=== PATIENT | male | born 1975 | race Caucasian/White ===

== ENCOUNTER 2016-06-12 22:41 | Emergency (ER) | payer OTHER ==
[~2016-06-12] VITALS: Ht 185.4 cm; Wt 80.0 kg
[~2016-06-12 22:41] MED LIST: Aspirin Chew PO; CARV3.125 PO; LIPI10TA PO; NITR1SUB3 SL; PLAV75TA29 PO
[2016-06-12 22:46] VITALS: BP 182/105; PULSE 80; RESP 16; TEMP 97.6; O2SAT 100
[2016-06-12 23:02] VITALS: BP 173/86; PULSE 75; RESP 18; O2SAT 100
--- NOTE | 2016-06-12 23:09 | PD ---
HPI Chief Complaint: Chest Pain Time Seen by Provider: 22:53 Travel History International Travel<30 days: No Contact w/Intl Traveler<30days: No Traveled to known affect area: No History of Present Illness HPI 41-year-old man, history of CAD with recent stenting in May 03 following an abnormal stress test by Dr. Doyle, who presents emergent from with pain in his chest across his left arm starting today. Ongoing for the past 5 or 6 days but was progressively worse today. He's also been out of all of his medications for the past 6 days. He states he was unable to afford a follow-up appointment with cardiology. States he feels similar to when he had his chest pain in the past. No clear aggravating or alleviating symptoms. Does have some shortness of breath with it. His only other complaint is that he does feel very lightheaded and fatigued when he takes his medications including metoprolol atorvastatin and Plavix. History Past Medical History Narrative Medical CAD, History of stent times 19 April 2016 Childhood hydrocephalus Social History Alcohol Use: No Tobacco Use: Yes (2-4 small cigars per day) Allergies-Medications (Allergen,Severity, Reaction): Coded Allergies: No Known Allergies (Unverified , 05/14/16) Reported Meds & Prescriptions Reported Meds & Active Scripts Active Nitroglycerin SL (Nitroglycerin) 0.4 Mg Subl 0.4 Mg SL DIRECTED PRN ONE TABLET UNDER THE TONGUE NEEDED FOR CHEST PAIN, MAY REPEAT EVERY FIVE MINUTES FOR A TOTAL OF 3 DOSES OR CALL 911 IF NO RELIEF Coreg (Carvedilol) 3.125 Mg Tab 3.125 Mg PO BID Lipitor (Atorvastatin Calcium) 10 Mg Tab 20 Mg PO HS Plavix (Clopidogrel Bisulfate) 75 Mg Tab 75 Mg PO DAILY [Aspirin Chew] 81 MG Chew 81 Mg PO DAILY Review of Systems Except as stated in HPI: all other systems reviewed are Neg Physical Exam Narrative GENERAL: Well-appearing 41-year-old man, no acute distress. SKIN: Warm and dry. HEAD: Atraumatic. Normocephalic. EYES: Pupils equal and round. No scleral icterus. No injection or drainage. ENT: No nasal bleeding or discharge. Mucous membranes pink and moist. NECK: Trachea midline. No JVD. CARDIOVASCULAR: Regular rate and rhythm. No murmur appreciated. RESPIRATORY: No accessory muscle use. Clear to auscultation. Breath sounds equal bilaterally. GASTROINTESTINAL: Abdomen soft, non-tender, nondistended. Hepatic and splenic margins not palpable. MUSCULOSKELETAL: No obvious deformities. No clubbing. No cyanosis. No edema. NEUROLOGICAL: Awake and alert. No obvious cranial nerve deficits. Motor grossly within normal limits. Normal speech. PSYCHIATRIC: Appropriate mood and affect; insight and judgment normal. Data Data Last Documented VS Vital Signs Date Time Temp Pulse Resp B/P Pulse Ox O2 Delivery O2 Flow Rate FiO2 06/12/16 23:13 76 18 159/91 100 Room Air 06/12/16 22:46 97.6 Orders Electrocardiogram (06/12/16 23:05) Complete Blood Count With Diff (06/12/16 23:05) Comprehensive Metabolic Panel (06/12/16 23:05) Magnesium (Mg) (06/12/16 23:05) Troponin I (06/12/16 23:05) Lipase (06/12/16 23:05) Chest, Single Ap (06/12/16 23:05) Ecg Monitoring (06/12/16 23:05) Bilateral Bp Monitoring (06/12/16 23:05) Iv Access Insert/Monitor (06/12/16 23:05) Oximetry (06/12/16 23:05) Oxygen Administration (06/12/16 23:05) Nitroglycerin 2% Oint (Nitroglycerin 2% (06/12/16 23:15) Sodium Chloride 0.9% Flush (Ns Flush) (06/12/16 23:15) Labs Laboratory Tests Test 06/12/16 23:15 White Blood Count 9.7 TH/MM3 Red Blood Count 4.42 MIL/MM3 Hemoglobin 14.3 GM/DL Hematocrit 40.9 % Mean Corpuscular Volume 92.4 FL Mean Corpuscular Hemoglobin 32.4 PG Mean Corpuscular Hemoglobin 35.1 % Concent Red Cell Distribution Width 13.5 % Platelet Count 278 TH/MM3 Mean Platelet Volume 8.1 FL Neutrophils (%) (Auto) 45.0 % Lymphocytes (%) (Auto) 42.9 % Monocytes (%) (Auto) 7.9 % Eosinophils (%) (Auto) 2.9 % Basophils (%) (Auto) 1.3 % Neutrophils # (Auto) 4.4 TH/MM3 Lymphocytes # (Auto) 4.2 TH/MM3 Monocytes # (Auto) 0.8 TH/MM3 Eosinophils # (Auto) 0.3 TH/MM3 Basophils # (Auto) 0.1 TH/MM3 CBC Comment DIFF FINAL Differential Comment Sodium Level 140 MEQ/L Potassium Level 3.7 MEQ/L Chloride Level 104 MEQ/L Carbon Dioxide Level 25.8 MEQ/L Anion Gap 10 MEQ/L Blood Urea Nitrogen 8 MG/DL Creatinine 0.94 MG/DL Estimat Glomerular Filtration 88 ML/MIN Rate Random Glucose 96 MG/DL Calcium Level 8.9 MG/DL Magnesium Level 2.0 MG/DL Total Bilirubin 0.2 MG/DL Aspartate Amino Transf 12 U/L (AST/SGOT) Alanine Aminotransferase 22 U/L (ALT/SGPT) Alkaline Phosphatase 93 U/L Troponin I LESS THAN 0.02 NG/ML Total Protein 7.6 GM/DL Albumin 4.2 GM/DL Lipase 280 U/L MDM Medical Decision Making Medical Screen Exam Complete: Yes Emergency Medical Condition: Yes Interpretation(s) My review of EKG, normal sinus rhythm at a rate of 71, normal axis, normal intervals, no acute ischemia. LABS: CBC is unremarkable. CMP is unremarkable. Troponin negative. Lipase normal. Chest x-ray: No acute disease. Differential Diagnosis ACS, anxiety, PE, pericarditis, other Narrative Course Medical decision making 41-year-old man, recurrent chest pain and recent stent, out of medications for a week, one previous recent visit following his stent for the same with negative serial enzymes. I don't he has a PE. Don't see evidence of pericarditis. Needs to be back on his medications. He needs serial cardiac enzymes. We will plan on keeping patient and the chest pain Center, cardiology evaluation, likely discharge. Diagnosis Primary Impression: Chest pain, rule out acute myocardial infarction Vasquez Raines MD Jun 12, 2016 23:09
[2016-06-12 23:11] VITALS: BP 173/86; PULSE 63; RESP 18; O2SAT 100
[2016-06-12 23:13] VITALS: BP 159/91; PULSE 76; RESP 18; O2SAT 100
[2016-06-12] MEDS ORDERED: SODIUM CHLORIDE 0.9% FLUSH 5 ML FLUSH IVF PRN (23:15)
[2016-06-12] MEDS ORDERED: NITROGLYCERIN 2% OINT 1 GM PACKET TOP ONE (23:15)
[2016-06-12 23:27] LABS: AUTOMATED NEUTROPHIL # 4.4 TH/MM3 (1.8-7.7); BASOPHIL # 0.1 TH/MM3 (0-0.2); BASOPHIL % 1.3 % (0.0-2.0); EOSINOPHIL # 0.3 TH/MM3 (0-0.4); EOSINOPHIL % 2.9 % (0.0-4.0); HEMATOCRIT 40.9 % (39.0-51.0); HEMO FLAGS DIFF FINAL; LYMPH % 42.9 % (9.0-44.0); LYMPHOCYTE # 4.2 TH/MM3 (1.0-4.8); MEAN CELL VOLUME 92.4 FL (80.0-100.0); MEAN CORPUSCULAR HEMOGLOBIN 32.4 PG (27.0-34.0); MEAN CORPUSCULAR HGB CONC 35.1 % (32.0-36.0); MONO % 7.9 % (0.0-8.0); PLATELET COUNT 278 TH/MM3 (150-450); RED BLOOD COUNT 4.42 MIL/MM3 (4.50-5.90); RED CELL DISTRIBUTION WIDTH 13.5 % (11.6-17.2); WHITE BLOOD COUNT 9.7 TH/MM3 (4.0-11.0)
[2016-06-12 23:44] LABS: ANION GAP 10 MEQ/L (5-15); AST (GOT) 12 U/L (15-37); BICARBONATE 25.8 MEQ/L (21.0-32.0); BLOOD UREA NITROGEN 8 MG/DL (7-18); CHLORIDE 104 MEQ/L (98-107); GLOMERULAR FILTRATION RATE 88 ML/MIN (>89); POTASSIUM 3.7 MEQ/L (3.5-5.1); SODIUM (NA) 140 MEQ/L (136-145)
[2016-06-12 23:49] LABS: ALKALINE PHOSPHATASE 93 U/L (45-117); ALT (GPT) 22 U/L (12-78); TOTAL BILIRUBIN ADULT 0.2 MG/DL (0.2-1.0)
--- NOTE | 2016-06-13 | RADRPT ---
EXAM DATE/TIME: 06/12/2016 23:46 [facility] COMPARISON: CHEST SINGLE AP, May 14, 2016, 23:43. INDICATIONS : Patient states chest pain. MEDICAL HISTORY : Hypertension. Hypercholesterolemia. SURGICAL HISTORY : None. ENCOUNTER: Initial ACUITY: 1 day PAIN SCORE: 4/10 LOCATION: Bilateral chest FINDINGS: A single view of the chest demonstrates the lungs to be symmetrically aerated without evidence of mas s, infiltrate or effusion. There is a stable granuloma in the left upper lung. The cardiomediastinal contours are unremarkable. Osseous structures are intact. CONCLUSION: No acute disease. No significant change has occurred. Gera Smith MD on June 12, 2016 at 23:58 Board Certified Radiologist. This report was verified electronically.
[2016-06-13 00:10] VITALS: BP 153/93; PULSE 64; RESP 18; O2SAT 97
[2016-06-13] MEDS ORDERED: SODIUM CHLORIDE 0.9% FLUSH 5 ML FLUSH IVF PRN (00:15)
[2016-06-13 01:15] VITALS: BP 146/98; PULSE 68; RESP 18; O2SAT 98
[2016-06-13 02:15] VITALS: BP 128/84; PULSE 67; RESP 18; O2SAT 98
[2016-06-13 02:42] LABS: CREATINE KINASE 121 U/L (39-308)
[2016-06-13 02:54] LABS: CKMB LESS THAN 0.5 NG/ML (0.5-3.6)
[2016-06-13 05:27] LABS: CREATINE KINASE 137 U/L (39-308)
[2016-06-13 05:39] LABS: CKMB LESS THAN 0.5 NG/ML (0.5-3.6)
[2016-06-13 06:47] VITALS: BP 131/78; PULSE 92; RESP 18; O2SAT 98
[2016-06-13] MEDS ORDERED: SODIUM CHLOR 0.9% 1000 ML INJ 1,000 ML IV SCH (07:58)
[2016-06-13 08:46] VITALS: BP 158/98; PULSE 74; RESP 16; O2SAT 99
[2016-06-13] MEDS ORDERED: CLOPIDOGREL 75 MG TAB PO SCH (09:00)
[2016-06-13] MEDS ORDERED: SODIUM CHLORIDE 0.9% FLUSH 5 ML FLUSH IVF SCH (09:00)
[2016-06-13] MEDS ORDERED: ASPIRIN 325 MG TAB PO SCH (09:00)
[2016-06-13] MEDS ORDERED: CARVEDILOL 3.125 MG TAB PO SCH (09:00)
--- NOTE | 2016-06-13 09:19 | MH ---
cc: OLEGARIO TRINIDAD MD DATE OF ADMISSION: 06/13/2016 DATE OF 1975 CHIEF COMPLAINT Chest pain HISTORY OF PRESENT ILLNESS This is a 41-year-old male with a history of CAD having a heart cath in 2015 with two stents placed by Dr. Doyle. He states that he has been having three weeks of intermittent discomfort in his chest described as a tightness. It makes him short of breath and diaphoretic, but really not nauseous. 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 He does not have a primary care physician at this time. The discomfort is somewhat similar to the discomfort he had before. He denies recent illnesses. Denies fevers or chills. PAST MEDICAL HISTORY 1. CAD with stenting in April of last year. 2. Hypertension 3. Hyperlipidemia SOCIAL HISTORY Past history of tobacco use, but states he essentially quit smoking after his heart catheterization, but has had a very rare cigarette since. Denies alcohol or illicit drugs. PAST SURGICAL HISTORY Heart catheterization in April with stenting. ALLERGIES NO KNOWN DRUG ALLERGIES. MEDICATIONS He is only taking Aspirin. He ran out of Plavix, Lipitor and Carvedilol. REVIEW OF SYSTEMS GENERAL: Denies fevers or chills. Denies recent illnesses. HEENT: Denies headache, earache, sore throat or difficulty swallowing. CARDIOVASCULAR: Describes the discomfort as mentioned above. There was diaphoresis. Denies sensation of heart beating rapidly or irregularly. No syncope. RESPIRATORY: He has been short of breath. No inspirational chest discomfort. Denies coughing, wheezing or hemoptysis. GI: Denies nausea, vomiting, diarrhea, abdominal pain or blood in the stool. MUSCULOSKELETAL: Denies joint pain or edema. Denies calf pain or edema. NEUROVASCULAR: Denies headache or dizziness. ENDOCRINE: Denies polyuria or polydipsia. HEMATOLOGIC: No easy bruising. SKIN: Denies rash or itching. PHYSICAL EXAMINATION VITAL SIGNS: In the emergency department, initially included a blood pressure of 182/105, heart 80, respirations 16, pulse oximetry 100% on room air and he was afebrile. Most recent vital signs include a blood pressure 131/70, heart rate is 92, respirations 18, pulse oximetry 98% on room air. GENERAL: The patient seen in the examination room in no apparent distress. He is very pleasant. He speaks in clear and complete sentences. HEENT: Head is atraumatic and normocephalic. NECK: Supple without lymphadenopathy and trachea is midline. No JVD or carotid bruits. CARDIOVASCULAR: Regular rate and rhythm without murmur, gallop or rub. RESPIRATORY: Lungs are clear to auscultation bilaterally. No wheezing, rales or rhonchi. No reproducible chest wall discomfort. No use of accessory muscles. GI: Abdomen is nontender and nondistended. Bowel sounds are normal. No guarding or rebound. No obvious pulsatile mass or bruit. No CVA tenderness. Strong femoral pulses bilaterally. MUSCULOSKELETAL: Patient is moving upper and lower extremities freely. No joint tenderness or edema. No calf tenderness or edema, Homans' sign. Strong pulses in the upper and lower extremities. NEUROVASCULAR: The patient is alert and oriented. Cranial nerves II-XII are grossly intact. No focal deficits and speech is clear. SKIN: No rashes, skin turgor is normal. LABORATORY DATA CBC is unremarkable. A complete metabolic panel unremarkable. Serial cardiac enzymes normal x3. Lipase is normal at 280. Single view chest x-ray read by radiologist as no acute disease. No ST changes occurred. EKG's have sinus bradycardia and sinus rhythm with nonspecific inferior T-wave changes. No significant ST segment depression or elevation. ASSESSMENT AND PLAN 1. Unstable angina: The patient has a history of CAD. He has run out of his medications. He has been seen by Dr. Olegario Trinidad of cardiology in the chest pain center and Dr. Trinidad has spoken with Dr. Dasilva who has agreed to admit the patient. The patient will be going for heart catheterization likely today. [facility] service. 2. CAD: The patient has a history of CAD. This will be reassessed with a heart catheterization. We will hold the Plavix at this time in case the patient were to turn into a surgical patient so that would not delay that. He will have full strength Aspirin. We will also keep nitro ointment on his chest. 3. Hypertension: Resume his carvedilol. 4. Hyperlipidemia: Continue current medications. The patient is agreeable with this plan. Dictated by DHAVAL Julien MD ROSA Go /8:36 AM /9:11 AM
[2016-06-13] MEDS ORDERED: HEPARIN-NS/PF INJ 500 ML ONE (10:03)
[2016-06-13] MEDS ORDERED: MIDAZOLAM HCL 2 MG/2 ML VIAL ONE ×2 (10:05→10:33)
[2016-06-13] MEDS ORDERED: HEPARIN SODIUM - IV 10,000 UNITS/10 ML VIAL ONE (10:05)
[2016-06-13] MEDS ORDERED: NITROGLYCERIN INJ 5 ML ONE (10:06)
[2016-06-13] MEDS ORDERED: IOHEXOL 350 MG/ML 100 ML BTL (for Cath Lab) OTHER ONE (11:00)
[2016-06-13] MEDS ORDERED: ISOS30TA3 PO (11:13)
--- NOTE | 2016-06-13 11:14 | HHI.DS ---
Discharge Summary Admission Date Jun 13, 2016 at 00:08 Admitting Diagnosis chest pain Procedures [facility] CBC/BMP: 06/12/16 2315 06/12/16 2315 Significant Findings Laboratory Tests Test 06/12/16 06/13/16 06/13/16 23:15 02:10 04:40 Red Blood Count 4.42 MIL/MM3 (4.50-5.90) Estimat Glomerular Filtration 88 ML/MIN (>89) Rate Aspartate Amino Transf 12 U/L (15-37) (AST/SGOT) Troponin I LESS THAN 0.02 LESS THAN 0.02 LESS THAN 0.02 NG/ML NG/ML NG/ML (0.02-0.05) (0.02-0.05) (0.02-0.05) Creatine Kinase MB LESS THAN 0.5 LESS THAN 0.5 NG/ML (0.5-3.6) NG/ML (0.5-3.6) Pt Condition on Discharge: Good Discharge Disposition: Discharge Home Discharge Instructions DIET: Follow Instructions for: Heart Healthy Diet Activities you can perform: Weight Bearing as [place] Follow up Referrals: PCP Follow-up - 1 Month New Medications: Isosorbide Mononitrate ER (Isosorbide Mononitrate ER) 30 Mg Nicole 30 MG PO DAILY@07 cad #30 Ref 6 TAB Continued Medications: Atorvastatin (Lipitor) 10 Mg Tab 20 MG PO HS #30 TAB Carvedilol (Coreg) 3.125 Mg Tab 3.125 MG PO BID #60 TAB Clopidogrel (Plavix) 75 Mg Tab 75 MG PO DAILY #30 TAB ([Aspirin Chew]) 81 MG CHEW 81 MG PO DAILY #30 TAB.Vasquez Matson MD Jun 13, 2016 11:14
[2016-06-13] MEDS ORDERED: oxyCODONE/ACETAMINOPHEN 5 MG/325 MG TAB PO PRN ×2 (11:15)
[2016-06-13] MEDS ORDERED: BACITRACIN OINT 0.9 GM PKT TOP ONE (11:15)
[2016-06-13] MEDS ORDERED: ONDANSETRON HCL 4 MG/2 ML VIAL IVP PRN (11:15)
[2016-06-13] MEDS ORDERED: MISC INFORMATION XX ONE (11:15)
--- NOTE | 2016-06-13 11:25 | HHI.PR ---
Addendum to Inpatient Note Addendum Reason: Additional Documentation Additional Information S/P cath by Dr Dasilva. Recommends medical management and to DC patient to follow up as OP. DC plan DC home in fairly well condition To follow up with PCP and consultants as OP Meds per med reconciliations Activity ad malissa as tolerated Diet health heart diet Kate Aquino MD Jun 13, 2016 11:25
[2016-06-13] MEDS ORDERED: NITROGLYCERIN 2% OINT 1 GM PACKET TOPICAL SCH (12:00)
--- NOTE | 2016-06-13 12:17 | MA ---
cc: DELFINO TEE DATE: 06/13/2016 PROCEDURE PERFORMED 1. Fluoroscopy with interpretation. 2. Coronary angiography. 3. Left heart catheterization. METHOD Risks, benefits and alternatives were discussed with the patient. The patient understood and consented to the procedure. The patient was brought to the catheterization lab and placed on the catheterization table. Right wrist was prepped and draped in sterile fashion. Right wrist was anesthetized with 2% lidocaine. Right radial artery was cannulated and a 6-Malian 7 cm sheath was placed without difficulty. CORONARY ANGIOGRAPHY Left coronary circulation was selectively engaged with a 6-Malian JL-3.5 catheter. Right coronary circulation was selectively engaged with a 6-Malian JR-5 catheter. Angiography findings as follows: 1. Left main coronary is angiographically normal. 2. Left anterior descending coronary has some minor luminal irregularities in the proximal mid segment. Several smaller diagonal branch with minor luminal irregularities. 3. Left circumflex gives rise to a moderate-sized obtuse marginal branch and sub-branch. There is a stent in the proximal segment of the marginal branch with some mild stenosis at the proximal distal edge margins. There is a sub-branch which bifurcates in the middle of the stent which has some moderate disease proximally. Severity of stenosis is about 50%. Does not appear to be flow limiting. LEFT HEART CATHETERIZATION 6-Malian JR-5 catheter was advanced across the aortic valve. The initial intraventricular hemodynamics measured at 127/7 mmHg. CONCLUSION 1. Patent first obtuse marginal branch stent. 2. Moderate branch vessel coronary artery disease involving sub-branch to the obtuse marginal branch. 3. Normal left-sided filling pressure. PLAN Second sub-branch does have some moderate proximal stenosis but does have steep angulation to the side strut. At this point I think it would be best to attempt aggressive medical therapy and see if symptomatically he is improved. Will continue with aspirin and statin. He can follow up with his primary care in the outpatient setting. MD MONA Ball/BILLY /11:05 AM /12:08 PM
--- NOTE | 2016-06-13 15:04 | EKG ---
Date Performed: 06/13/2016 Time Performed: 05:20:29 PTAGE: 41 years EKG: SINUS BRADYCARDIA BORDERLINE ECG PREVIOUS TRACING : 06/13/2016 02.07 Since previous tracing, no significant change noted DOCTOR: Olegario River Interpretating Date/Time 06/13/2016 15:03:18
--- NOTE | 2016-06-13 15:05 | EKG ---
Date Performed: 06/12/2016 Time Performed: 22:57:59 PTAGE: 41 years EKG: Sinus rhythm NORMAL ECG PREVIOUS TRACING : 05/15/2016 12.20 Since previous tracing, no significant change noted DOCTOR: Olegario River Interpretating Date/Time 06/13/2016 15:03:56
--- NOTE | 2016-06-13 15:05 | EKG ---
Date Performed: 06/13/2016 Time Performed: 02:07:51 PTAGE: 41 years EKG: Sinus rhythm WITH MARKED SINUS ARRHYTHMIA BORDERLINE ECG PREVIOUS TRACING : 06/12/2016 22.57 Since previous tracing, no significant change noted DOCTOR: Olegario River Interpretating Date/Time 06/13/2016 15:03:35
[2016-06-13] MEDS ORDERED: ATORVASTATIN 20 MG TAB PO SCH (21:00)
[2016-06-14] MEDS ORDERED: ISOSORBIDE MONONITRATE 30 MG TAB PO SCH (07:00)
== END 2016-06-13 15:49 | disposition home or self-care (01) ==
LOC: NEPE 22:41 → UNDOADMOB 06-13 00:08 → NEDA 06-13 00:08 → NEDH 06-13 04:08 → NEPE 06-13 15:49
DX: R07.9 Chest pain, unspecified (principal); I25.10 Atherosclerotic heart disease of native coronary artery without angina pectoris; R94.31 Abnormal electrocardiogram [ECG] [EKG]; R06.02 Shortness of breath; Z72.0 Tobacco use
CPT/HCPCS: 71010; 80053; 82550; 82552; 83690; 83735; 84484; 85025; 93005; 93454; 99285; C1769; C1893; J1644; J2250; J3010; J7030; Q9967

== ENCOUNTER 2016-07-31 04:37 | Inpatient (IN) | payer OTHER ==
[2016-07-31] VITALS (24 sets, daily range): BP systolic 125–167; BP diastolic 59–101; PULSE 56–98; RESP 16–28; TEMP 97.7–98.6; O2SAT 98–100
[~2016-07-31] VITALS: Ht 188 cm; Wt 79.5 kg
[~2016-07-31 04:37] MED LIST changes: +ISOS30TA3 PO
[2016-07-31] MEDS ORDERED: SODIUM CHLORIDE 0.9% FLUSH 5 ML FLUSH IVF PRN (05:00)
[2016-07-31] MEDS ORDERED: MORPHINE SULFATE 4 MG/ML INJ IV PUSH ONE (05:00)
[2016-07-31] MEDS ORDERED: HEPARIN SODIUM - IV 10,000 UNITS/10 ML VIAL IV ONE (05:00)
[2016-07-31] MEDS ORDERED: SODIUM CHLORID 0.9% 500 ML INJ 500 ML IV ONE (05:00)
[2016-07-31] MEDS ORDERED: SODIUM CHLOR 0.9% 1000 ML INJ 1,000 ML IV ONE (05:00)
[2016-07-31] MEDS ORDERED: ASPIRIN 325 MG TAB PO ONE (05:00)
[2016-07-31] MEDS ORDERED: CLOPIDOGREL 300 MG TAB PO ONE ×2 (05:00→06:30)
[2016-07-31] MEDS ORDERED: ATORVASTATIN 80 MG TAB PO ONE (05:00)
[2016-07-31 05:02] LABS: AUTOMATED NEUTROPHIL # 9.7 TH/MM3 (1.8-7.7); BASOPHIL # 0.2 TH/MM3 (0-0.2); BASOPHIL % 1.3 % (0.0-2.0); EOSINOPHIL # 0.2 TH/MM3 (0-0.4); EOSINOPHIL % 1.5 % (0.0-4.0); HEMATOCRIT 45.3 % (39.0-51.0); HEMO FLAGS DIFF FINAL; LYMPH % 25.2 % (9.0-44.0); LYMPHOCYTE # 3.8 TH/MM3 (1.0-4.8); MEAN CELL VOLUME 94.3 FL (80.0-100.0); MEAN CORPUSCULAR HEMOGLOBIN 32.1 PG (27.0-34.0); MEAN CORPUSCULAR HGB CONC 34.1 % (32.0-36.0); MONO % 6.6 % (0.0-8.0); NEUT % 65.4 % (16.0-70.0); PLATELET COUNT 282 TH/MM3 (150-450); WHITE BLOOD COUNT 14.9 TH/MM3 (4.0-11.0)
[2016-07-31 05:08] LABS: I-STAT POTASSIUM 3.3 MMOL/L (3.5-4.9); I-STAT SODIUM 139 MMOL/L (138-146)
--- NOTE | 2016-07-31 05:09 | PD ---
HPI Chief Complaint: Chest Pain Time Seen by Provider: 04:49 Travel History International Travel<30 days: No Contact w/Intl Traveler<30days: No Traveled to known affect area: No History of Present Illness HPI Patient is a 41-year-old male with history of hypertension, hyperlipidemia, coronary artery disease who presents to emergency room with complaints of chest pain. Patient reports that 2 hours ago, he began to have substernal chest pain , reports that this chest pain radiates to his left arm. Patient reports that pain feels a Pressure sensation to his chest. Patient reports that he has had similar chest pains in the past when he has had his past AR's. Reports that he feels short of breath and nauseous with his symptoms. Denies diaphoresis or palpitations. Patient reports that he does follow with Dr. Doyle in the office, reports that he has multiple stents placed in his heart. Patient reports that he has been having intermittent chest pain over the past 4 days, reports that chest pain was worse today, that is why he came to the emergency room. PFSH Past Medical History Blood Disorders: No Heart Rhythm Problems: No Cancer: No Cardiovascular Problems: Yes High Cholesterol: Yes Chest Pain: Yes Congestive Heart Failure: No Coronary Artery Disease: Yes Diminished Hearing: No Endocrine: No Genitourinary: No Hypertension: Yes Immune Disorder: No Implanted Vascular Access Dvce: Yes Musculoskeletal: No Neurologic: Yes (hydrocephalus) Psychiatric: No Reproductive: No Respiratory: No Myocardial Infarction: Yes (04/2016) Past Surgical History Body Medical Devices: STENTS PLACED 04/2016 Cardiac Surgery: Yes Other Surgery: Yes Social History Alcohol Use: No Tobacco Use: Yes (2-4 small cigars per day) Substance Use: No Allergies-Medications (Allergen,Severity, Reaction): Coded Allergies: No Known Allergies (Unverified , 07/31/16) Reported Meds & Prescriptions Reported Meds & Active Scripts Active Isosorbide Mononitrate ER (Isosorbide Mononitrate) 30 Mg Nicole 30 Mg PO DAILY@07 Nitroglycerin SL (Nitroglycerin) 0.4 Mg Subl 0.4 Mg SL DIRECTED PRN ONE TABLET UNDER THE TONGUE NEEDED FOR CHEST PAIN, MAY REPEAT EVERY FIVE MINUTES FOR A TOTAL OF 3 DOSES OR CALL 911 IF NO RELIEF Coreg (Carvedilol) 3.125 Mg Tab 3.125 Mg PO BID Lipitor (Atorvastatin Calcium) 10 Mg Tab 20 Mg PO HS Plavix (Clopidogrel Bisulfate) 75 Mg Tab 75 Mg PO DAILY [Aspirin Chew] 81 MG Chew 81 Mg PO DAILY Review of Systems General / Constitutional: No: Fever Eyes: No: Visual changes HENT: No: Headaches Cardiovascular: Positive: Chest Pain or Discomfort Respiratory: No: Shortness of Breath Gastrointestinal: No: Abdominal Pain Genitourinary: No: Dysuria Musculoskeletal: No: Pain Skin: No Rash Neurologic: No: Weakness Psychiatric: No: Depression Endocrine: No: Polydipsia Hematologic/Lymphatic: No: Easy Bruising Physical Exam Narrative GENERAL: Moderate distress SKIN: Warm and dry. HEAD: Atraumatic. Normocephalic. EYES: Pupils equal and round. No scleral icterus. No injection or drainage. ENT: No nasal bleeding or discharge. Mucous membranes pink and moist. NECK: Trachea midline. No JVD. CARDIOVASCULAR: Regular rate and rhythm. No murmur appreciated. RESPIRATORY: No accessory muscle use. Clear to auscultation. Breath sounds equal bilaterally. GASTROINTESTINAL: Abdomen soft, non-tender, nondistended. Hepatic and splenic margins not palpable. MUSCULOSKELETAL: No obvious deformities. No clubbing. No cyanosis. No edema. NEUROLOGICAL: Awake and alert. Normal speech. PSYCHIATRIC: Appropriate mood and affect; insight and judgment normal. Data Data Last Documented VS Vital Signs Date Time Temp Pulse Resp B/P Pulse Ox O2 Delivery O2 Flow Rate FiO2 07/31/16 04:55 100 2.00 07/31/16 04:55 Nasal Cannula 07/31/16 04:40 73 28 167/92 Orders Electrocardiogram (07/31/16 04:51) B-Type Natriuretic Peptide (07/31/16 04:51) Ckmb (Isoenzyme) Profile (07/31/16 04:51) Complete Blood Count With Diff (07/31/16 04:51) Comprehensive Metabolic Panel (07/31/16 04:51) Magnesium (Mg) (07/31/16 04:51) Prothrombin Time / Inr (Pt) (07/31/16 04:51) Act Partial Throm Time (Ptt) (07/31/16 04:51) Troponin I (07/31/16 04:51) Chest, Single Ap (07/31/16 04:51) Ecg Monitoring (07/31/16 04:51) Bilateral Bp Monitoring (07/31/16 04:51) Iv Access Insert/Monitor (07/31/16 04:51) Oximetry (07/31/16 04:51) Oxygen Administration (07/31/16 04:51) Aspirin (Aspirin) (07/31/16 05:00) Morphine Inj (Morphine Inj) (07/31/16 05:00) Sodium Chloride 0.9% Flush (Ns Flush) (07/31/16 05:00) Sodium Chlorid 0.9% 500 Ml Inj (Ns 500 M (07/31/16 05:00) Atorvastatin (Lipitor) (07/31/16 05:00) Sodium Chlor 0.9% 1000 Ml Inj (Ns 1000 M (07/31/16 05:00) MDM Medical Decision Making Medical Screen Exam Complete: Yes Emergency Medical Condition: Yes Interpretation(s) EKG at 0443: Normal sinus rhythm at 69 bpm, QT/QTC 372/391, st seg elevation II , III, aVF Vital Signs Date Time Temp Pulse Resp B/P Pulse Ox O2 Delivery O2 Flow Rate FiO2 07/31/16 04:55 100 2.00 07/31/16 04:55 100 Nasal Cannula 2.00 07/31/16 04:54 100 Nasal Cannula 2 07/31/16 04:40 73 28 167/92 Differential Diagnosis STEMI, ACS, arrhythmia, electrolyte abnormality Narrative Course Patient is a 41-year-old male who presents to emergency room with complaints of chest pain. Patient reports that he has been having chest pain for the past 2 hours, reports that chest pain is substernal in nature and radiates to his left arm. Patient reports that he has history of coronary disease and has had multiple stents placed in his heart in the past. Patient does follow-up with Dr. Doyle in the office and reports that he was last seen in April 2016. 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 Doyle, call made to Dr. Doyle. Dr. Doyle is on medication, call made to Dr. Mcdonough who is covering for Dr. Doyle. Dr. Mcdonough request that I call the ordnance truck installation mechanic transportation consultant. Call made to Dr. Dasilva who will come to hospital for cardiac cath. request heparin bolus and asa. istat labs: Sodium 139 Chloride 97 Potassium 3.3 BUN 4 Creatinine 0.8 Hemoglobin 16.7 Hematocrit 49 Diagnosis Primary Impression: ST elevation (STEMI) myocardial infarction Qualified Code: I21.3 - ST elevation myocardial infarction (STEMI), unspecified artery Admitting Information Admitting Physician Requests: Admit Leah Martinez DO Jul 31, 2016 05:09
[2016-07-31 05:16] LABS: APTT (PATIENT) 32.1 SEC (24.3-30.1); PROTHROMBIN TIME - PATIENT 10.7 SEC (9.8-11.6)
[2016-07-31] MEDS ORDERED: HEPARIN-NS/PF INJ 500 ML ONE (05:26)
[2016-07-31] MEDS ORDERED: MIDAZOLAM HCL 2 MG/2 ML VIAL ONE ×2 (05:26→05:55)
[2016-07-31] MEDS ORDERED: BIVALIRUDIN 250 MG VIAL ONE (05:27)
[2016-07-31] MEDS ORDERED: HEPARIN SODIUM - IV 10,000 UNITS/10 ML VIAL ONE (05:27)
--- NOTE | 2016-07-31 05:28 | RADRPT ---
EXAM DATE/TIME: 07/31/2016 05:08 [facility] COMPARISON: CHEST SINGLE AP, June 12, 2016, 23:46. INDICATIONS : Chest pain. MEDICAL HISTORY : Hypertension. Hypercholesterolemia SURGICAL HISTORY : None. ENCOUNTER: Initial ACUITY: 1 day PAIN SCORE: 0/10 LOCATION: Bilateral chest FINDINGS: 2 AP views of the chest. Lungs are clear. Cardiomediastinal silhouette within normal limits. No evide nce of pleural effusion or pneumothorax. CONCLUSION: No acute cardiopulmonary disease identified. Ambrocio Ibanez MD on July 31, 2016 at 5:25 Board Certified Radiologist. This report was verified electronically.
[2016-07-31 05:35] LABS: ALT (GPT) 22 U/L (12-78); ANION GAP 14 MEQ/L (5-15); AST (GOT) 27 U/L (15-37); BICARBONATE 25.7 MEQ/L (21.0-32.0); BLOOD UREA NITROGEN 5 MG/DL (7-18); CHLORIDE 98 MEQ/L (98-107); GLOMERULAR FILTRATION RATE 86 ML/MIN (>89); MAGNESIUM 1.8 MG/DL (1.5-2.5); POTASSIUM 3.2 MEQ/L (3.5-5.1); SODIUM (NA) 138 MEQ/L (136-145)
[2016-07-31 05:38] LABS: ALKALINE PHOSPHATASE 111 U/L (45-117); CREATINE KINASE 201 U/L (39-308); TOTAL BILIRUBIN ADULT 0.4 MG/DL (0.2-1.0)
[2016-07-31 05:59] LABS: CKMB 3.3 NG/ML (0.5-3.6)
[2016-07-31] MEDS ORDERED: CLOPIDOGREL 300 MG TAB ONE (06:08)
[2016-07-31] MEDS ORDERED: BIVALIRUDIN INJ 250 MG in SODIUM CHLORIDE 0.9% INJ 50 ML IV SCH (06:21)
[2016-07-31] MEDS: SODIUM CHLOR 0.9% 1000 ML INJ 1,000 ML IV SCH ×2 (06:21→16:21)
[2016-07-31] MEDS ORDERED: LIPI40TA PO (06:28)
[2016-07-31] MEDS ORDERED: PLAV75TA29 PO (06:28)
[2016-07-31] MEDS ORDERED: ISOS60TA PO (06:29)
[2016-07-31] MEDS ORDERED: ATROPINE SULFATE 1 MG/ML VIAL IV PRN (06:30)
[2016-07-31] MEDS ORDERED: LIDOCAINE 2% JELLY 30 ML TUBE TOP PRN (06:30)
[2016-07-31] MEDS ORDERED: BACITRACIN OINT 0.9 GM PKT TOP ONE (06:30)
[2016-07-31] MEDS ORDERED: TEMAZEPAM 15 MG CAP PO PRN (06:30)
[2016-07-31] MEDS ORDERED: LIDOCAINE HCL 1% 50 ML VIAL INFIL PRN (06:30)
[2016-07-31] MEDS ORDERED: LORazepam 2 MG/ML VIAL IV PRN (06:30)
[2016-07-31] MEDS ORDERED: SODIUM CHLOR 0.9% 250 ML INJ 250 ML IV PRN (06:30)
[2016-07-31] MEDS ORDERED: METOCLOPRAMIDE HCL 10 MG/2 ML VIAL IV PRN (06:30)
[2016-07-31] MEDS ORDERED: MISC INFORMATION XX ONE (06:30)
[2016-07-31] MEDS ORDERED: LISI-519 PO (06:40)
--- NOTE | 2016-07-31 07:04 | MB ---
cc: DELFINO TEE DATE OF CONSULTATION 07/31/[address]-elevation ID. HISTORY OF PRESENT ILLNESS This is a very nice 41-year-old gentleman who has hypertension, hyperlipidemia and known coronary disease. He follows with Dr. Doyle in the outpatient setting. The patient stopped his Plavix about two weeks ago. He was unable to get refills through Dr. Doyle's office and discontinued on his own. He had a prior history of known heart disease with percutaneous intervention with bare metal stenting to an obtuse marginal branch. He had come into the emergency department with chest pain back in early May, saw Dr. River in the chest pain center. He had an abnormal nuclear stress test and was sent for coronary angiogram. I did the left heart cath in early May. He had moderate obtuse marginal branch disease. There was a sub side branch off the first obtuse marginal branch that had been somewhat compromised by the initial stenting procedure. We decided at that point to medically manage him and start him on isosorbide. He now presents with inferolateral ST-elevation and ongoing substernal chest pain two hours prior to presentation. ST-elevation myocardial infarction protocol was initiated. Attempts to contact Dr. Doyle was unsuccessful. He was on vacation being covered by Dr. Mcdonough. They contacted Dr. Mcdonough who stated he was not coming in for the procedure and to call the on-call charter boat captain. They called me to come in for the emergent heart catheterization. The patient was still having ongoing symptoms and electrocardiographic changes. PAST MEDICAL HISTORY 1. Hypertension 2. Hyperlipidemia 3. Coronary disease SOCIAL HISTORY Reports occasional tobacco use. Denies any substance or alcohol use. ALLERGIES NO KNOWN DRUG ALLERGIES. MEDICATIONS Home medications: 1. Isosorbide 2. Coreg 3. Lipitor 4. Aspirin 5. He has stopped his Plavix. REVIEW OF SYSTEMS A 12-point view of some was performed and is negative unless otherwise as noted in the history of present illness. FAMILY HISTORY Denies any family history of early coronary disease or sudden cardiac . PHYSICAL EXAM VITAL SIGNS: Pulse is 73, blood pressure 166/101 mmHg. GENERAL: An alert and oriented x3 in moderate distress. HEENT: Exam shows pupils reactive to light and accommodation. Extraocular movements are intact. NECK: No elevation in jugular venous distension. No thyromegaly or lymphadenopathy. No carotid bruits. LUNGS: Clear to auscultation bilaterally. CARDIOVASCULAR: Regular rate and rhythm without murmurs, rubs or gallops. ABDOMEN: Nontender, nondistended. Good bowel sounds. No hepatosplenomegaly. EXTREMITIES: Show no clubbing, cyanosis or edema. Good peripheral pulses. NEUROLOGIC: Cranial nerves intact. Motor sensory grossly intact. LABORATORY DATA WBC 14.9, hemoglobin 15.4, platelet count 282, INR is one. Sodium 139, potassium 3.8, BUN 5, creatinine 0.96, troponins 2.59. Electrocardiogram sinus rhythm, inferolateral ST-elevation ASSESSMENT 1. ST-elevation ID. 2. History of coronary disease prior percutaneous intervention in April with Dr. Doyle 3. Hypertension 4. Hyperlipidemia PLAN Given the patient's ongoing symptoms, electrocardiographic changes and elevated troponin, we will proceed with emergent heart catheterization. The risks, benefits and alternatives discussed with the patient who understood and consented to proceed. We will obtain a 2-D echocardiogram. His only assessment for ejection fraction was on a nuclear stress test which showed mild cardiomyopathy with ejection fraction of 45%. We will confirm his current ejection fraction with the echo. MD MONA Ball/ALONZO /6:35 AM /6:51 AM
--- NOTE | 2016-07-31 07:14 | MA ---
cc: CCList DATE 07/31/[address]-elevation [place]. 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 Fluoroscopy with interpretation. 2. Coronary angiography. 3. Percutaneous intervention with bare metal stent to the first obtuse marginal branch. METHOD The risks, benefits and alternatives were discussed with the patient. The patient understood and consented to the procedure. PROCEDURE The patient was brought into the catheterization lab and placed on the catheterization table. The right groin was prepped and draped in sterile fashion. The right groin was anesthetized with 2% lidocaine. The right common femoral artery was cannulated and a 6-Martiniquais, 11-cm sheath was placed without difficulty. CORONARY ANGIOGRAPHY Left coronary circulation is selectively engaged with a 6-Martiniquais XB 3.5 guide catheter. Right coronary circulation was selectively engaged with a 6-Martiniquais JR-4 catheter. ANGIOGRAPHIC RESULTS 1. The left main coronary is angiographically normal. 2. The left anterior descending coronary has a 30% stenosis in the proximal segment and minor irregularities throughout. 3. The left circumflex coronary has a stent in the first obtuse marginal branch. There is a sub-branch off the first obtuse marginal branch that bifurcates at the level of the prior stent. That sub-branch is subtotally occluded. There is MOODY-1 flow noted down. There is also an 80% proximal stenosis in the obtuse marginal branch at the proximal stent margin. 4. The right coronary is a dominant vessel giving rise to the posterior descending coronary. The right coronary has minor luminal irregularities. PERCUTANEOUS INTERVENTION The small second obtuse marginal branch is subtotally occluded, would be very difficult to navigate through the side strut at this steep angulation. It is also a smaller caliber size vessel. At this point we will medically manage that. We elected to proceed with percutaneous intervention of the proximal first obtuse marginal branch stenosis. A 0.014, 180-cm Terumo Run-Through wire was navigated down the distal first obtuse marginal branch. A 2.5 x 15-mm RXU4 balloon is then deployed in the proximal first obtuse marginal branch. Repeat angiography still showed moderate residual stenosis. The patient's symptoms improved after balloon angioplasty. A 3.0 x 18-mm RX Integrity bare metal stent was advanced into the mid-left circumflex, extending into the bifurcation of the first obtuse marginal branch and deployed to 14 atmospheres. The proximal stent margin was post-dilated with a 3.0 x 8-mm Non-Compliant Euphora balloon due to vessel size mismatch to try to flare the proximal stent portion. Repeat angiography showed no significant residual stenosis, MOODY-3 flow. The sheath was sewn into place to be removed, manual hemostasis. Guide catheter removed. CONCLUSIONS 1. ST-elevation OH of the obtuse marginal branch distribution. 2. Successful percutaneous intervention with bare metal stents to the first obtuse marginal branch. PLAN 1. At the completion of the procedure the patient had symptomatic improvement. There is a sub-branch off the first obtuse marginal branch which is now subtotally occluded. We will allow him to complete that infarct since it is very small caliber size and difficult to intervene on. 2. We will increase his isosorbide to 60 mg a day. 3. Recommend that he continued the Plavix indefinitely. MD MONA Ball/ELIDIA /6:41 AM /6:54 AM
[2016-07-31] MEDS ORDERED: NITROGLYCERIN 0.4 MG SL 25 TABS/BTL SL ONE (09:06)
[2016-07-31] MEDS: ISOSORBIDE MONONITRATE 60 MG TAB PO SCH (09:07)
[2016-07-31] MEDS: MORPHINE SULFATE 4 MG/ML INJ IV PUSH PRN ×4 (09:12→18:41)
[2016-07-31] MEDS ORDERED: hydrALAZINE HCL 20 MG/ML VIAL IV PUSH PRN (09:15)
[2016-07-31] MEDS ORDERED: NITROGLYCERIN-DEXTROSE INJ 250 ML IV SCH (09:15)
[2016-07-31] MEDS: CARVEDILOL 3.125 MG TAB PO SCH ×2 (09:16→20:31)
[2016-07-31] MEDS: ASPIRIN 81 MG CHEW TAB PO SCH (09:16)
[2016-07-31] MEDS: LISINOPRIL 5 MG TAB PO SCH (09:16)
[2016-07-31] MEDS ORDERED: IOHEXOL 350 MG/ML 100 ML BTL (for Cath Lab) OTHER ONE (10:27)
[2016-07-31] MEDS: ONDANSETRON HCL 4 MG/2 ML VIAL IV PRN ×3 (10:28→18:41)
[2016-07-31] MEDS: oxyCODONE/ACETAMINOPHEN 10 MG/325 MG TAB PO PRN (14:13)
--- NOTE | 2016-07-31 14:33 | EC ---
Study Study Date:07/31/2016 STUDY CONCLUSIONS SUMMARY LEFT VENTRICLE: The cavity size was normal. Wall thickness was increased in a pattern of mild LVH. Systolic function was normal. The estimated ejection fraction was in the range of 55% to 60%. Wall motion was normal; there were no regional wall motion abnormalities. Doppler parameters are consistent with abnormal left ventricular relaxation (grade 1 diastolic dysfunction). If LV function is below 40, please consider prescribing an ACEI or ARB or document rationale for non-use. PROCEDURE DATA STUDY STATUS: Elective. Procedure: Transthoracic echocardiography. Image quality was good. Scanning was performed from the parasternal, apical, and subcostal acoustic windows. Study completion: The patient tolerated the procedure well. Transthoracic echocardiography. M-mode, complete 2D, complete spectral Doppler, and color Doppler. Height: Height: 74in. Weight: Weight: 174.6lb. Body mass index: BMI: 22.5kg/m^2. Body surface area: BSA: 2.05m^2. Patient status: Inpatient. CARDIAC ANATOMY LEFT VENTRICLE: The cavity size was normal. Wall thickness was increased in a pattern of mild LVH. Systolic function was normal. The estimated ejection fraction was in the range of 55% to 60%. Wall motion was normal; there were no regional wall motion abnormalities. Doppler parameters are consistent with abnormal left ventricular relaxation (grade 1 diastolic dysfunction). AORTIC VALVE: Trileaflet; normal thickness leaflets. Doppler: Transvalvular velocity was within the normal range. There was no stenosis. No regurgitation. Mean gradient: 3mm Hg (S). AORTA: Aortic root: The aortic root was normal in size. MITRAL VALVE: Structurally normal valve. Doppler: Transvalvular velocity was within the normal range. There was no evidence for stenosis. No regurgitation. LEFT ATRIUM: The atrium was normal in size. RIGHT VENTRICLE: The cavity size was normal. Wall thickness was normal. PULMONIC VALVE: Doppler: Transvalvular velocity was within the normal range. There was no evidence for stenosis. No regurgitation. TRICUSPID VALVE: Structurally normal valve. Doppler: Transvalvular velocity was within the normal range. No regurgitation. PULMONARY ARTERY: The main pulmonary artery was normal-sized. Systolic pressure was within the normal range. RIGHT ATRIUM: The atrium was normal in size. PERICARDIUM: There was no pericardial effusion. SYSTEMIC VEINS: Inferior vena cava: The vessel was normal in size. Patient weight: 174.6lb _Ejection fraction:_ 65-75% _Fractional shortening:_ 32% up to 5Kg 5-11.5Kg 11.6-22.9Kg 23-45Kg 45-57Kg Aortic Root 7-13 <17 13-22 17-27 17-27 LA diam 6-13 <23 24-38 33-47 37-40 RVID 10-17 7-15 7-15 7-18 8-17 LVIDd 12-22 <32 24-38 33-47 37-40 LVPW 2-4 3-6 5-7 6-8 7-8 IVS 2-4 3-6 5-7 6-8 7-8 BASIC MEASUREMENTS ADULT Normal Left ventricle LV internal dimension, ED, chordal level, *58.2 mm 43-52 PLAX LV internal dimension, ES, chordal level, *44.3 mm 23-38 PLAX Fractional shortening, chordal level, PLAX *24 % >29 LV posterior wall thickness, ED 7.58 mm IVS/LVPW ratio, ED 0.92 <1.3 Ventricular septum Septal thickness, ED 6.95 mm Left atrium Anterior-posterior dimension 32 mm Anterior-posterior dimension index 1.56 cm/m^2 <2.2 DOPPLER MEASUREMENTS ADULT Normal Aortic valve Peak velocity, S 127 cm/s Mean velocity, S 79.3 cm/s VTI, S 22.8 cm Mean gradient, S 3 mm Hg Mitral valve Peak E-wave velocity 63.6 cm/s Peak A-wave velocity 84.5 cm/s Deceleration time *285 ms 150-230 Peak E/A ratio 0.8 LEGEND: Mean values are shown as u=mean value. Asterisk (*) nunez values outside specified normal range. Prepared and signed by Vasquez Dasilva [id number]
[2016-07-31] MEDS: oxyCODONE/ACETAMINOPHEN 5 MG/325 MG TAB PO PRN ×2 (18:12→23:47)
--- NOTE | 2016-07-31 19:45 | EKG ---
Date Performed: 07/31/2016 Time Performed: 06:30:18 PTAGE: 41 years EKG: Sinus rhythm rSr'(V1) - probable normal variant Abnormal ECG PREVIOUS TRACING : 07/31/2016 04.43 Compared to prior tracing no significant change DOCTOR: Jl Donahue Interpretating Date/Time 07/31/2016 19:43:50
--- NOTE | 2016-07-31 19:49 | EKG ---
Date Performed: 07/31/2016 Time Performed: 04:43:38 PTAGE: 41 years EKG: Sinus rhythm MODERATE INTRAVENTRICULAR CONDUCTION DELAY INFERIOR ST ELEVATION PREVIOUS TRACING : 06/13/2016 05.20 Compared to the previous tracing inferior ST elevatio n now present DOCTOR: Jl Donahue Interpretating Date/Time 07/31/2016 19:48:20
[2016-07-31] MEDS ORDERED: ATORVASTATIN 40 MG TAB PO SCH (21:00)
[2016-08-01] VITALS (12 sets, daily range): BP systolic 132–147; BP diastolic 68–83; PULSE 64–92; RESP 16–18; TEMP 98.6–99.1; O2SAT 97–99
[2016-08-01] MEDS: ONDANSETRON HCL 4 MG/2 ML VIAL IV PRN ×2 (03:00→08:32)
[2016-08-01 05:08] LABS: AUTOMATED NEUTROPHIL # 9.6 TH/MM3 (1.8-7.7); BASOPHIL # 0.1 TH/MM3 (0-0.2); BASOPHIL % 0.7 % (0.0-2.0); EOSINOPHIL # 0.1 TH/MM3 (0-0.4); EOSINOPHIL % 0.8 % (0.0-4.0); HEMATOCRIT 39.3 % (39.0-51.0); HEMO FLAGS DIFF FINAL; LYMPH % 11.6 % (9.0-44.0); LYMPHOCYTE # 1.4 TH/MM3 (1.0-4.8); MEAN CELL VOLUME 93.1 FL (80.0-100.0); MEAN CORPUSCULAR HEMOGLOBIN 31.9 PG (27.0-34.0); MEAN CORPUSCULAR HGB CONC 34.3 % (32.0-36.0); NEUT % 78.9 % (16.0-70.0); PLATELET COUNT 214 TH/MM3 (150-450); RED BLOOD COUNT 4.22 MIL/MM3 (4.50-5.90); WHITE BLOOD COUNT 12.1 TH/MM3 (4.0-11.0)
[2016-08-01 05:36] LABS: HDL CHOLESTEROL 36.7 MG/DL (40.0-60.0); POTASSIUM 3.6 MEQ/L (3.5-5.1)
[2016-08-01] MEDS: oxyCODONE/ACETAMINOPHEN 10 MG/325 MG TAB PO PRN (05:39)
[2016-08-01 05:55] LABS: CKMB 50.6 NG/ML (0.5-3.6)
[2016-08-01] MEDS: ISOSORBIDE MONONITRATE 60 MG TAB PO SCH (06:31)
[2016-08-01] MEDS: ASPIRIN 81 MG CHEW TAB PO SCH (08:32)
[2016-08-01] MEDS: CARVEDILOL 3.125 MG TAB PO SCH (08:32)
[2016-08-01] MEDS: LISINOPRIL 5 MG TAB PO SCH (08:32)
[2016-08-01] MEDS: MORPHINE SULFATE 4 MG/ML INJ IV PUSH PRN (08:33)
--- NOTE | 2016-08-01 08:49 | PD.CARD.PN ---
Subjective Subjective Remarks currently CP free feeling well slight headache from Nitro Objective Medications Active Medications Aspirin (Aspirin Chew) 81 mg DAILY PO Last administered on 08/01/16 08:32; Admin Dose 81 MG; Start 07/31/16 at 09:00 Atorvastatin Calcium (Lipitor) 40 mg HS PO Last administered on 07/31/16 20:31 ; Admin Dose 40 MG; Start 07/31/16 at 21:00 Carvedilol (Coreg) 3.125 mg Q12HR PO Last administered on 08/01/16 08:32; Admin Dose 3.125 MG; Start 07/31/16 at 09:00 Clopidogrel Bisulfate (Plavix) 75 mg DAILY PO Last administered on 08/01/16 08: 32; Admin Dose 75 MG; Start 08/01/16 at 09:00 Hydralazine HCl (Apresoline Inj) 10 mg Q30M PRN IV PUSH Last administered on 09:56; Admin Dose 10 MG; Start 07/31/16 at 09:15 Iohexol (OMNIPAQUE 350 INJ (Program Support Specialist)) 100 ml STK-MED ONCE OTHER; Start at 10:27; Stop 07/31/16 at 10:28; Status DC Lisinopril (Prinivil) 5 mg DAILY PO Last administered on 08/01/16 08:32; Admin Dose 5 MG; Start 07/31/16 at 09:00 Nitroglycerin 0.4 mg 0.4 mg STK-MED ONCE SL Last administered on 07/31/16 09:14 ; Admin Dose 0.4 MG; Start 07/31/16 at 09:06; Stop 07/31/16 at 09:07; Status DC Nitroglycerin/ Dextrose (Nitroglycerin-Dextrose Inj) 250 ml @ 0 mls/hr TITRATE IV Last administered on 07/31/16 09:28; Admin Dose 0 MLS/HR; Start 07/31/16 at 09:15 Vital Signs / I&O Vital Signs Date Time Temp Pulse Resp B/P Pulse Ox O2 Delivery O2 Flow Rate FiO2 08/01/16 06:34 14 08/01/16 06:00 77 08/01/16 05:00 80 08/01/16 04:00 64 08/01/16 03:00 98.6 81 16 135/83 99 08/01/16 03:00 92 08/01/16 02:00 76 08/01/16 01:00 68 08/01/16 00:59 14 08/01/16 00:00 66 07/31/16 23:00 98.6 98 16 132/81 98 07/31/16 23:00 72 07/31/16 22:00 64 07/31/16 21:00 70 07/31/16 20:00 98 07/31/16 19:00 98.2 68 16 144/82 98 07/31/16 19:00 18 07/31/16 19:00 68 07/31/16 18:11 73 07/31/16 17:09 73 07/31/16 16:32 64 07/31/16 15:11 97.7 68 18 125/73 98 07/31/16 15:00 65 07/31/16 14:16 62 07/31/16 13:49 62 07/31/16 12:18 81 07/31/16 11:06 97.9 58 18 158/92 100 Arterial Line 07/31/16 11:00 56 07/31/16 10:07 88 07/31/16 09:37 18 07/31/16 09:20 18 07/31/16 09:12 71 I/O 07/31/16 07/31/16 07/31/16 08/01/16 08/01/16 08/01/16 07:00 15:00 23:00 07:00 15:00 23:00 Intake Total 1945 ml 1485 ml Output Total 850 ml 900 ml Balance 1095 ml 585 ml Intake Oral 120 ml 480 ml IV Total 1825 ml 1005 ml Output Urine Total 850 ml 900 ml Physical Exam GENERAL: SKIN: Warm and dry. HEAD: Normocephalic. EYES: No scleral icterus. No injection or drainage. NECK: Supple, trachea midline. No JVD or lymphadenopathy. CARDIOVASCULAR: Regular rate and rhythm without murmurs, gallops, or rubs. RESPIRATORY: Breath sounds equal bilaterally. No accessory muscle use. GASTROINTESTINAL: Abdomen soft, non-tender, nondistended. MUSCULOSKELETAL: No cyanosis, or edema. BACK: Nontender without obvious deformity. No CVA tenderness. Laboratory Laboratory Tests Test 08/01/16 04:25 White Blood Count 12.1 TH/MM3 Red Blood Count 4.22 MIL/MM3 Hemoglobin 13.5 GM/DL Hematocrit 39.3 % Mean Corpuscular Volume 93.1 FL Mean Corpuscular Hemoglobin 31.9 PG Mean Corpuscular Hemoglobin 34.3 % Concent Red Cell Distribution Width 14.0 % Platelet Count 214 TH/MM3 Mean Platelet Volume 8.3 FL Neutrophils (%) (Auto) 78.9 % Lymphocytes (%) (Auto) 11.6 % Monocytes (%) (Auto) 8.0 % Eosinophils (%) (Auto) 0.8 % Basophils (%) (Auto) 0.7 % Neutrophils # (Auto) 9.6 TH/MM3 Lymphocytes # (Auto) 1.4 TH/MM3 Monocytes # (Auto) 1.0 TH/MM3 Eosinophils # (Auto) 0.1 TH/MM3 Basophils # (Auto) 0.1 TH/MM3 CBC Comment DIFF FINAL Differential Comment Sodium Level 139 MEQ/L Potassium Level 3.6 MEQ/L Chloride Level 104 MEQ/L Carbon Dioxide Level 26.0 MEQ/L Anion Gap 9 MEQ/L Blood Urea Nitrogen 4 MG/DL Creatinine 0.74 MG/DL Estimat Glomerular Filtration 116 ML/MIN Rate Random Glucose 110 MG/DL Calcium Level 8.4 MG/DL Total Creatine Kinase 590 U/L Creatine Kinase MB 50.6 NG/ML Creatine Kinase MB % 8.6 % Triglycerides Level 112 MG/DL Cholesterol Level 181 MG/DL LDL Cholesterol 122 MG/DL HDL Cholesterol 36.7 MG/DL Cholesterol/HDL Ratio 4.93 RATIO Imaging Last Impressions Chest X-Ray 07/31/16 0451 Signed Impressions: Service Date/Time: Sunday, July 31, 2016 05:08 - CONCLUSION: No acute cardiopulmonary disease identified. Ambrocio Ibanez MD Assessment and Plan Assessment and Plan STEMI - s/p PCI OM1. doing well. ambulate. if remains CP free, may be candidate for DC later today. asa plavix statin monitor BP echo - normal EF. Vasquez Dasilva MD Aug 01, 2016 08:49
[2016-08-01] MEDS ORDERED: CLOPIDOGREL 75 MG TAB PO SCH (09:00)
--- NOTE | 2016-08-01 12:12 | HHI.DS ---
Discharge Summary Admission Date Jul 31, 2016 at 05:48 Admitting Diagnosis STEMI Procedures [facility] PCI OM Brief History underwent emergent PCI OM. ambulatory now without symtoms and want to go home CBC/BMP: 08/01/16 0425 08/01/16 0425 Significant Findings Laboratory Tests Test 07/31/16 08/01/16 04:50 04:25 White Blood Count 14.9 TH/MM3 12.1 TH/MM3 (4.0-11.0) (4.0-11.0) Neutrophils # (Auto) 9.7 TH/MM3 9.6 TH/MM3 (1.8-7.7) (1.8-7.7) Monocytes # (Auto) 1.0 TH/MM3 1.0 TH/MM3 (0-0.9) (0-0.9) Activated Partial 32.1 SEC Thromboplast Time (24.3-30.1) Bedside Potassium 3.3 MMOL/L (3.5-4.9) Potassium Level 3.2 MEQ/L (3.5-5.1) Bedside Chloride 97 MMOL/L (98-109) Bedside Blood Urea Nitrogen 4 MG/DL (8-26) Blood Urea Nitrogen 5 MG/DL (7-18) 4 MG/DL (7-18) Estimat Glomerular Filtration 86 ML/MIN (>89) Rate Bedside Glucose 124 MG/DL (60-95) Random Glucose 115 MG/DL 110 MG/DL (74-106) (74-106) Troponin I 2.59 NG/ML (0.02-0.05) Total Protein 8.4 GM/DL (6.4-8.2) Red Blood Count 4.22 MIL/MM3 (4.50-5.90) Neutrophils (%) (Auto) 78.9 % (16.0-70.0) Calcium Level 8.4 MG/DL (8.5-10.1) Total Creatine Kinase 590 U/L (39-308) Creatine Kinase MB 50.6 NG/ML (0.5-3.6) Creatine Kinase MB % 8.6 % (0.0-4.0) LDL Cholesterol 122 MG/DL (0-99) HDL Cholesterol 36.7 MG/DL (40.0-60.0) Pt Condition on Discharge: Good Discharge Instructions DIET: Follow Instructions for: Heart Healthy Diet Activities you can perform: Weight Bearing as [place] Follow up Referrals: Cardiology - [address] César Rubin takes medicaid patients [address] [facility] [address] PCP Follow-up - 2 Weeks New Medications: Atorvastatin (Lipitor) 40 Mg Tab 40 MG PO HS cad #30 Ref 11 TAB Isosorbide Mononitrate ER (Isosorbide Mononitrate ER) 60 Mg Tab 60 MG PO DAILY@07 cad #30 Ref 11 TAB Lisinopril (Lisinopril) 5 Mg Tab 5 MG PO DAILY cad #30 Ref 11 TAB Continued Medications: Carvedilol (Coreg) 3.125 Mg Tab 3.125 MG PO BID #60 TAB Clopidogrel (Plavix) 75 Mg Tab 75 MG PO DAILY cad Days 30 Ref 11 TAB (This prescription has been renewed) Nitroglycerin SL (Nitroglycerin SL) 0.4 Mg Subl 0.4 MG SL DIRECTED ONE TABLET UNDER THE TONGUE NEEDED FOR CHEST PAIN, MAY REPEAT EVERY FIVE MINUTES FOR A TOTAL OF 3 DOSES OR CALL 911 IF NO RELIEF PRN CHEST PAIN #60 Ref 0 TAB.SL ([Aspirin Chew]) 81 MG CHEW 81 MG PO DAILY #30 TAB.CHEW Discontinued Medications: Atorvastatin (Lipitor) 10 Mg Tab 20 MG PO HS #30 TAB Isosorbide Mononitrate ER (Isosorbide Mononitrate ER) 30 Mg Nicole 30 MG PO DAILY@07 cad #30 Ref 6 TAB Vasquez Dasilva MD Aug 01, 2016 12:12
--- NOTE | 2016-08-01 13:49 | EKG ---
Date Performed: 08/01/2016 Time Performed: 05:55:26 PTAGE: 41 years EKG: Sinus rhythm Indeterminate axis Borderline ECG PREVIOUS TRACING : 07/31/2016 06.30 DOCTOR: Sancho Xavier Interpretating Date/Time 08/01/2016 13:46:38
== END 2016-08-01 12:48 | disposition home or self-care (01) | DRG 249 ==
LOC: NEPE 04:37 → NEDA 05:48 → HCIN 06:32
PROVIDERS: ADMIT Internal Medicine; ATTEND Internal Medicine
PROC: 02703DZ Dilation of Coronary Artery, One Artery with Intraluminal Device, Percutaneous Approach (ICD-10-PCS; principal; 2016-07-31)
PROC: B2111ZZ Fluoroscopy of Multiple Coronary Arteries using Low Osmolar Contrast (ICD-10-PCS; 2016-07-31)
DX: I21.3 ST elevation (STEMI) myocardial infarction of unspecified site (principal); I10 Essential (primary) hypertension; E78.5 Hyperlipidemia, unspecified; I25.10 Atherosclerotic heart disease of native coronary artery without angina pectoris; Z91.14 Patient's other noncompliance with medication regimen; Z95.5 Presence of coronary angioplasty implant and graft; Z72.0 Tobacco use
CPT/HCPCS: 71010; 80048; 80053; 80061; 82435; 82550; 82552; 82565; 82947; 83735; 83880; 84132; 84295; 84484; 84520; 85025; 85610; 85730; 92941; 93005; 93306; 93454; 96361; 96374; 96375; C1725; C1769; C1876; C1887; C1893; J0360; J0583; J1644; J2060; J2250; J2270; J2405; J3010; J7030; J7040; Q9967

== ENCOUNTER 2016-08-16 02:24 | Observation (INO) | payer OTHER ==
[~2016-08-16] VITALS: Ht 188 cm; Wt 80.0 kg
[2016-08-16] VITALS (16 sets, daily range): BP systolic 126–186; BP diastolic 70–114; PULSE 58–117; RESP 14–20; TEMP 97.5–98.5; O2SAT 97–100
[~2016-08-16 02:24] MED LIST changes: -ISOS30TA3 PO; +ISOS60TA PO; -LIPI10TA PO; +LIPI40TA PO; +LISI-519 PO
[2016-08-16 02:50] LABS: MEAN CORPUSCULAR HGB CONC 36.2 % (32.0-36.0)
[2016-08-16] MEDS ORDERED: MORPHINE SULFATE 4 MG/ML INJ IV PUSH ONE (03:00)
--- NOTE | 2016-08-16 03:18 | PD ---
HPI Chief Complaint: Chest Pain Time Seen by Provider: 02:31 Travel History International Travel<30 days: No Contact w/Intl Traveler<30days: No Traveled to known affect area: No History of Present Illness HPI 41-year-old male arrives to the ER complaining of chest pain and shortness of breath for 3-4 hours. The onset occurred at rest. The pain is constant. It radiates up the right neck. He also complains of right lower extremity pain he complains of groin pain bilaterally. He reports a history of arterial stents in the femoral arteries due to peripheral vascular disease. He reports strict compliance with all this medication since undergoing cardiac catheterization about 2 weeks ago. He's had no fever. PFSH Past Medical History Asthma: Yes Blood Disorders: No Anxiety: Yes Depression: Yes Heart Rhythm Problems: Yes ("palpitations, fluttering and racing") Cancer: No Cardiovascular Problems: Yes High Cholesterol: Yes Chest Pain: Yes Congestive Heart Failure: No Coronary Artery Disease: Yes Diminished Hearing: No Endocrine: No Genitourinary: No Hypertension: Yes Immune Disorder: No Implanted Vascular Access Dvce: Yes Musculoskeletal: Yes Neurologic: Yes (hydrocephalus) Psychiatric: Yes Reproductive: No Respiratory: No Migraines: Yes Myocardial Infarction: Yes (04/2016) Tetanus Vaccination: Unknown Past Surgical History Body Medical Devices: STENTS PLACED 04/2016 Cardiac Surgery: Yes (4 sents) Neurologic Surgery: Yes (shunt for hydrocephalus and removal) Other Surgery: Yes Social History Alcohol Use: No Tobacco Use: Yes (2-4 small cigars per day) Substance Use: No Allergies-Medications (Allergen,Severity, Reaction): Coded Allergies: No Known Allergies (Unverified , 07/31/16) Reported Meds & Prescriptions Reported Meds & Active Scripts Active Lisinopril 5 Mg Tab 5 Mg PO DAILY Isosorbide Mononitrate ER (Isosorbide Mononitrate) 60 Mg Tab 60 Mg PO DAILY@07 Lipitor (Atorvastatin Calcium) 40 Mg Tab 40 Mg PO HS Plavix (Clopidogrel Bisulfate) 75 Mg Tab 75 Mg PO DAILY 30 Days Nitroglycerin SL (Nitroglycerin) 0.4 Mg Subl 0.4 Mg SL DIRECTED PRN ONE TABLET UNDER THE TONGUE NEEDED FOR CHEST PAIN, MAY REPEAT EVERY FIVE MINUTES FOR A TOTAL OF 3 DOSES OR CALL 911 IF NO RELIEF Coreg (Carvedilol) 3.125 Mg Tab 3.125 Mg PO BID [Aspirin Chew] 81 MG Chew 81 Mg PO DAILY Review of Systems Except as stated in HPI: all other systems reviewed are Neg General / Constitutional: No: Fever Cardiovascular: Positive: Chest Pain or Discomfort Respiratory: Positive: Shortness of Breath Musculoskeletal: Positive: Pain Physical Exam Narrative GENERAL: 41-year-old male well-nourished well-developed mild to moderate distress SKIN: Focused skin assessment warm/dry. HEAD: Atraumatic. Normocephalic. EYES: Pupils equal and round. No scleral icterus. No injection or drainage. ENT: No nasal bleeding or discharge. Mucous membranes pink and moist. NECK: Trachea midline. No JVD. CARDIOVASCULAR: Regular rate and rhythm. No murmur appreciated. RESPIRATORY: No accessory muscle use. Clear to auscultation. Breath sounds equal bilaterally. GASTROINTESTINAL: Abdomen soft, non-tender, nondistended. Hepatic and splenic margins not palpable. MUSCULOSKELETAL: No obvious deformities. No clubbing. No cyanosis. No edema. No sign of DVT. NEUROLOGICAL: Awake and alert. No obvious cranial nerve deficits. Motor grossly within normal limits. Normal speech. PSYCHIATRIC: Appropriate mood and affect; insight and judgment normal. Data Data Last Documented VS Vital Signs Date Time Temp Pulse Resp B/P Pulse Ox O2 Delivery O2 Flow Rate FiO2 08/16/16 07:00 17 08/16/16 06:35 61 136/91 99 Room Air 08/16/16 02:25 98.5 Orders Electrocardiogram (08/16/16 02:49) Ckmb (Isoenzyme) Profile (08/16/16 02:49) Complete Blood Count With Diff (08/16/16 02:49) Comprehensive Metabolic Panel (08/16/16 02:49) Magnesium (Mg) (08/16/16 02:49) Prothrombin Time / Inr (Pt) (08/16/16 02:49) Act Partial Throm Time (Ptt) (08/16/16 02:49) Troponin I (08/16/16 02:49) Lipase (08/16/16 02:49) Chest, Single Ap (08/16/16 02:49) Ecg Monitoring (08/16/16 02:49) Iv Access Insert/Monitor (08/16/16 02:49) Oximetry (08/16/16 02:49) Oxygen Administration (08/16/16 02:49) Morphine Inj (Morphine Inj) (08/16/16 03:00) Sodium Chloride 0.9% Flush (Ns Flush) (08/16/16 03:00) Ct Pulmonary Angiogram (08/16/16 02:49) CKMB (08/16/16 03:05) CKMB% (08/16/16 03:05) Iohexol 350 Inj (Omnipaque 350 Inj) (08/16/16 04:17) Hydromorphone Pf Inj (Dilaudid Pf Inj) (08/16/16 06:00) Nitroglycerin Sl (Nitrostat Sl) (08/16/16 06:00) Labs Laboratory Tests Test 08/16/16 03:05 White Blood Count 10.4 TH/MM3 Red Blood Count 4.58 MIL/MM3 Hemoglobin 15.3 GM/DL Hematocrit 42.3 % Mean Corpuscular Volume 92.4 FL Mean Corpuscular Hemoglobin 33.4 PG Mean Corpuscular Hemoglobin 36.2 % Concent Red Cell Distribution Width 13.5 % Platelet Count 385 TH/MM3 Mean Platelet Volume 8.4 FL Neutrophils (%) (Auto) 44.6 % Lymphocytes (%) (Auto) 43.2 % Monocytes (%) (Auto) 7.5 % Eosinophils (%) (Auto) 2.9 % Basophils (%) (Auto) 1.8 % Neutrophils # (Auto) 4.6 TH/MM3 Lymphocytes # (Auto) 4.5 TH/MM3 Monocytes # (Auto) 0.8 TH/MM3 Eosinophils # (Auto) 0.3 TH/MM3 Basophils # (Auto) 0.2 TH/MM3 CBC Comment AUTO DIFF Differential Comment AUTO DIFF CONFIRMED Platelet Estimate HIGH Platelet Morphology Comment NORMAL Red Cell Morphology Comment NORMAL Prothrombin Time 11.3 SEC Prothromb Time International 1.0 RATIO Ratio Activated Partial 31.1 SEC Thromboplast Time Sodium Level 139 MEQ/L Potassium Level 3.6 MEQ/L Chloride Level 104 MEQ/L Carbon Dioxide Level 24.9 MEQ/L Anion Gap 10 MEQ/L Blood Urea Nitrogen 8 MG/DL Creatinine 0.96 MG/DL Estimat Glomerular Filtration 86 ML/MIN Rate Random Glucose 128 MG/DL Calcium Level 9.5 MG/DL Magnesium Level 2.0 MG/DL Total Bilirubin 0.4 MG/DL Aspartate Amino Transf 24 U/L (AST/SGOT) Alanine Aminotransferase 22 U/L (ALT/SGPT) Alkaline Phosphatase 102 U/L Total Creatine Kinase 130 U/L Creatine Kinase MB 0.6 NG/ML Troponin I LESS THAN 0.02 NG/ML Total Protein 8.4 GM/DL Albumin 4.8 GM/DL Lipase 366 U/L [facility] Medical Decision Making Medical Screen Exam Complete: Yes Emergency Medical Condition: Yes Medical Record Reviewed: Yes Differential Diagnosis NSTEMI, unstable angina, coronary vasospasm, PE, PTX, aortic dissection, pericarditis, myocarditis, endocarditis, PNA, esophageal disease, aneurysm, musculoskeletal etiologies, anxiety, cocaine/sympathomimetic abuse Narrative Course EKG reveals sinus rhythm with a rate of 93 no STEMI CBC & BMP Diagram 08/16/16 03:05 LFTs normal Lipase normal Troponin less than 0.02 Last 24 hours Impressions Chest X-Ray 08/16/16248 Signed Impressions: Service Date/Time: Tuesday, August 16, 2016 02:45 - CONCLUSION: Stable chest x-ray. No acute cardiopulmonary abnormality is identified. Goldy Evans MD CT Angiography 08/16/16248 Signed Impressions: Service Date/Time: Tuesday, August 16, 2016 04:04 - CONCLUSION: 1. No PE is identified. 2. Stable bilateral upper lobe paraseptal emphysema and biapical blebs. 3. Stable 12 mm calcified nodule in the left upper lobe and stable asymmetric scarring at the right lung apex. Goldy Evans MD Patient reports trace improvement after morphine. He received no improvement after nitroglycerin. After 0.5mg Dilaudid pt improved. d/w Dr Mcneill who advised consult to Dr Dasilva. d/w Dr Dasilva who advised to d/w Dr Doyle. Dr Doyle called without a return call. Pt states he has not followed up with a valet as an outpatient. Discharge paperwork suggested to call Dr Rubin in [place] who accepts Medicaid. Pt is unaware of Dr Rubin. Admission for monitoring, pain control and evaluation by service cardiology is considered necessary for this patient with no outside follow up with PMD or cardiology. Diagnosis Primary Impression: Chest pain Qualified Code: R07.9 - Chest pain, unspecified type Admitting Information Admitting Physician Requests: Observation Alex Durham MD Aug 16, 2016 03:18
[2016-08-16 03:33] LABS: AUTOMATED NEUTROPHIL # 4.6 TH/MM3 (1.8-7.7); BASOPHIL # 0.2 TH/MM3 (0-0.2); BASOPHIL % 1.8 % (0.0-2.0); EOSINOPHIL # 0.3 TH/MM3 (0-0.4); EOSINOPHIL % 2.9 % (0.0-4.0); HEMATOCRIT 42.3 % (39.0-51.0); LYMPH % 43.2 % (9.0-44.0); LYMPHOCYTE # 4.5 TH/MM3 (1.0-4.8); MEAN CELL VOLUME 92.4 FL (80.0-100.0); MEAN CORPUSCULAR HEMOGLOBIN 33.4 PG (27.0-34.0); MONO % 7.5 % (0.0-8.0); NEUT % 44.6 % (16.0-70.0); PLATELET COUNT 385 TH/MM3 (150-450); RED BLOOD COUNT 4.58 MIL/MM3 (4.50-5.90); RED CELL DISTRIBUTION WIDTH 13.5 % (11.6-17.2); WHITE BLOOD COUNT 10.4 TH/MM3 (4.0-11.0)
--- NOTE | 2016-08-16 03:38 | RADRPT ---
EXAM DATE/TIME: 08/16/2016 02:45 [facility] COMPARISON: CHEST SINGLE AP, July 31, 2016, 5:08. INDICATIONS : Chest pain. MEDICAL HISTORY : Myocardial infarction. Congestive heart failure. Coronary artery disease. SURGICAL HISTORY : Coronary artery stent. ENCOUNTER: Initial ACUITY: 1 day PAIN SCORE: 7/10 LOCATION: chest substernal. FINDINGS: Portable AP view of the chest demonstrates a normal-sized cardiac silhouette. No effusion, consolidat ion, or pneumothorax is visualized. The bones and soft tissues demonstrate no acute abnormality. Stab le calcified granuloma in the left upper lobe. CONCLUSION: Stable chest x-ray. No acute cardiopulmonary abnormality is identified. Goldy Evans MD on August 16, 2016 at 3:36 Board Certified Radiologist. This report was verified electronically.
[2016-08-16 03:46] LABS: ALKALINE PHOSPHATASE 102 U/L (45-117); ALT (GPT) 22 U/L (12-78); ANION GAP 10 MEQ/L (5-15); AST (GOT) 24 U/L (15-37); BICARBONATE 24.9 MEQ/L (21.0-32.0); BLOOD UREA NITROGEN 8 MG/DL (7-18); CHLORIDE 104 MEQ/L (98-107); CREATINE KINASE 130 U/L (39-308); GLOMERULAR FILTRATION RATE 86 ML/MIN (>89); POTASSIUM 3.6 MEQ/L (3.5-5.1); SODIUM (NA) 139 MEQ/L (136-145); TOTAL BILIRUBIN ADULT 0.4 MG/DL (0.2-1.0)
[2016-08-16 03:53] LABS: HEMO FLAGS AUTO DIFF
[2016-08-16 03:59] LABS: CKMB 0.6 NG/ML (0.5-3.6)
[2016-08-16 04:03] LABS: APTT (PATIENT) 31.1 SEC (24.3-30.1); PROTHROMBIN TIME - PATIENT 11.3 SEC (9.8-11.6)
[2016-08-16] MEDS ORDERED: IOHEXOL 350 MG/ML 10 ML VIAL (for RAD DIAG) IV ONE (04:17)
--- NOTE | 2016-08-16 04:39 | RADRPT ---
EXAM DATE/TIME: 08/16/2016 04:04 [facility] COMPARISON: CTA THORACIC ABDOMINAL AORTA W 3D RECON, May 01, 2016, 21:41. INDICATIONS : Chest pains and palpitations. IV CONTRAST: 75 cc Omnipaque 350 (iohexol) IV RADIATION DOSE: 12.49 CTDIvol (mGy) MEDICAL HISTORY : Cardiovascular disease. Hypertension. SURGICAL HISTORY : Stents ENCOUNTER: Initial ACUITY: 1 day PAIN SCALE: 5/10 LOCATION: chest TECHNIQUE: Volumetric scanning of the chest was performed using a pulmonary embolism protocol MIP images were re constructed. Using automated exposure control and adjustment of the mA and/or kV according to patien t size, radiation dose was kept as low as reasonably achievable to obtain optimal diagnostic quality images. FINDINGS: PULMONARY ARTERIES: No filling defects are seen in the pulmonary arteries through the segmental level. LUNGS: There is no consolidation or pneumothorax . In the left upper lobe there is a stable 12 mm centrally calcified pulmonary nodule. There is stable asymmetric parenchymal scar at the right lung apex. There are blebs at the lung apices bilaterally along with paraseptal emphysema. PLEURAE: There is no pleural thickening or pleural effusion. MEDIASTINUM: There is good visualization of the great vessels of the middle mediastinum. No evidence of mediastin al or hilar adenopathy/mass. MUSCULOSKELETAL: No acute osseous abnormality. MISCELLANEOUS: The visualized upper abdominal organs demonstrate no acute abnormality. CONCLUSION: 1. No PE is identified. 2. Stable bilateral upper lobe paraseptal emphysema and biapical blebs. 3. Stable 12 mm calcified nodule in the left upper lobe and stable asymmetric scarring at the right l carmen apex. Goldy Evans MD on August 16, 2016 at 4:34 Board Certified Radiologist. This report was verified electronically.
[2016-08-16 04:54] LABS: PLATELET ESTIMATE SMEAR HIGH (NORMAL); PLATELET MORPHOLOGY NORMAL (NORMAL); SCAN/DIFF AUTO DIFF CONFIRMED
[2016-08-16] MEDS: NITROGLYCERIN 0.4 MG SL 25 TABS/BTL SL SCH ×3 (05:56→06:10)
[2016-08-16] MEDS ORDERED: HYDROmorphone HCL PF 1 MG/ML VIAL IV PUSH ONE (06:00)
[2016-08-16] MEDS: SODIUM CHLORIDE 0.9% FLUSH 10 ML FLUSH IVF PRN (07:00)
[2016-08-16] MEDS: LISINOPRIL 5 MG TAB PO SCH (09:38)
[2016-08-16] MEDS: CLOPIDOGREL 75 MG TAB PO SCH (09:39)
[2016-08-16] MEDS: CARVEDILOL 3.125 MG TAB PO SCH ×2 (09:39→20:34)
[2016-08-16] MEDS: ASPIRIN 81 MG CHEW TAB PO SCH (09:39)
[2016-08-16 10:22] LABS: CREATINE KINASE 85 U/L (39-308)
[2016-08-16] MEDS: amLODIPine BESYLATE 5 MG TAB PO SCH (12:18)
--- NOTE | 2016-08-16 12:41 | MB ---
cc: ANKUR HILL DO DATE OF CONSULTATION: 08/16/2016 REASON FOR CONSULTATION Chest pain. HISTORY OF PRESENT ILLNESS Bang Hays is a 41-year-old male who arrived to [facility] Emergency Room on August 16, 2016 due to chest pain. He previously has been here a few times for chest pain with a similar episode this time. His original event was in April where he underwent cardiac catheterization of an obtuse marginal with a bare metal stent. During this it appears that he had of one of the vessels. He then was re-cath'd in May and attempt at medical management was made. Lastly, he was cath'd on July 31, 2016 and was found to have some re-stenosis of the bare metal stent although this was possibly due to the previous ballooning of his secondary sub-branch from the original procedure in April. Because of this he had another stent placed over the previous bare metal stent. Since that time he continues to have chest pain for a few hours a day. He states that he came into the emergency room because he continues to have chest pain. He was increased on his Imdur after his last cardiac catheterization. He has trouble taking the Imdur because of headaches. He also was having some leg pain while walking today which he has had before, but has also had some groin pain following his cardiac catheterization. He previously had been on Plavix but had stopped it before his previous cardiac catheterization as he was unable to get in to Dr. Doyle's office to get it refilled. PAST MEDICAL HISTORY 1. Coronary artery disease. 2. Hypertension. 3. Hyperlipidemia. PAST SURGICAL HISTORY 1. Multiple cardiac catheterizations within the past 3-4 months as above. 2. Surgery for hydrocephalus as a child. ALLERGIES No known drug allergies. MEDICATIONS 1. Aspirin 81 mg daily. 2. Plavix 75 mg daily. 3. Nitro sublingual as needed. 4. Imdur 60 mg daily. 5. Lipitor 40 mg every night. 6. Coreg 3.125 mg b.i.d. 7. Lisinopril 5 mg daily. FAMILY HISTORY He denies premature coronary artery disease or sudden cardiac within the family. SOCIAL HISTORY Denies alcohol or drug abuse. Does smoke 2-4 small cigars per day. REVIEW OF SYSTEMS 14 systems were reviewed including osteopathic. Pertinent positives and negatives as above, otherwise negative. PHYSICAL EXAMINATION VITAL SIGNS: Temperature 97.8, heart rate 58, blood pressure 155/93, originally 186/114, respirations 18, pulse ox 99% on room air. GENERAL: In general the patient appears well, in no acute distress, alert, awake and oriented x3. HEENT: Extraocular muscles intact. Mucous membranes moist. NECK: Supple. No JVD at 45 degrees. No carotid bruits heard bilaterally. Carotid upstroke is brisk in nature. HEART: Regular rate and rhythm. Positive first and second heart sounds with no murmurs, gallops or rubs. PMI is nondisplaced. LUNGS: Decreased breath sounds bilaterally but no overt wheezes, rales or rhonchi. ABDOMEN: Soft, nontender, nondistended. No organomegaly noted. EXTREMITIES: No clubbing, cyanosis or edema. The right groin has a small induration, possibly due to a previous small hematoma. No pain with palpation. NEUROLOGIC: Neurologically no focal deficits. SKIN: Warm, dry and intact. MUSCULOSKELETAL: Osteopathically no kyphoscoliosis, lordosis or paraspinal tender points. LABORATORY DATA Hemoglobin 15.3, hematocrit 42.3, platelets 385. Potassium 3.6, BUN 8, creatinine 0.96. Troponin negative x2. ELECTROCARDIOGRAM Electrocardiogram (August 16, 2016 at 10:08): Sinus rhythm, left axis deviation, nonspecific ST-T wave changes. ASSESSMENT AND RECOMMENDATIONS 1. Mr. Hays is presenting with angina and it is difficult to ascertain if he is taking his Imdur every day because of headaches. I feel that his pain has consistently been from a small subsegmental branch which has shown minimal flow down on previous cardiac catheterizations. 2. I feel that we should attempt to treat him medically as best as possible as there are no interventions that will help with this small branch as it has been jailed on previous cardiac catheterizations and he now has two stents over this area. So far EKGs have shown no significant changes and his troponins have been negative, showing no myocardial ischemia. 3. Will attempt to place him on Norvasc as this will help with both his blood pressure and as an antianginal. 4. As far as his groin pain goes we will obtain an ultrasound to make sure there is no pseudoaneurysm in this area. From a clinical standpoint this most likely is a small hematoma post manual hold. 5. Further recommendations will be based on the hospital course. Thank you for allowing me to see Bang Hays. If there are any questions, please do not hesitated to call. Ankur Hill DO VGP/BT /11:13 AM /12:20 PM
--- NOTE | 2016-08-16 12:50 | RADRPT ---
EXAM DATE/TIME: 08/16/2016 11:45 [facility] COMPARISON: No previous studies available for comparison. INDICATIONS : Post cardiac catheterization two weeks ago. Right leg pain. MEDICAL HISTORY : Congestive heart failure. CAD. Hyrocephalus. SURGICAL HISTORY : Cardiac stents. Shunt for hydrocephalus and removal of. ENCOUNTER: Initial ACUITY: 3 days PAIN SCORE: 0/10 LOCATION: Right leg. AREA EVALUATED: Right groin. FINDINGS: Hypoechoic, 7 x 6 x 3 mm area anterior to the common femoral artery likely represents the previous ac cess site. There is no pseudoaneurysm or AV fistula. Multiple borderline lymph nodes in the right ing uinal region, the largest measuring 2.1 x 1.9 x 0.8 cm. These contain fatty ziyad and are almost certa inly reactive. CONCLUSION: 1. Expected, pre-arterial 7 x 6 x 3 mm hematoma. No pseudoaneurysm or AV fistula. 2. Likely reactive right inguinal lymph nodes. Micha Rivers MD on August 16, 2016 at 12:47 Board Certified Radiologist. This report was verified electronically.
--- NOTE | 2016-08-16 14:37 | HHI.HP ---
[facility] Service [facility] Primary Care Physician No Primary Care Physician Admission Diagnosis Chest Pain Diagnoses: Chief Complaint: Chest pain Travel History International Travel<30 Days: No Contact w/Intl Traveler <30 Da: No Traveled to Known Affected Are: No History of Present Illness 41 years old male with history of coronary artery disease and recent cardiac catheter with stenting earlier this month, presented to the ED complaining with persistent chest pain around 6 out of 10 transferred to his neck and jaw accompanied 9 by nausea one time vomiting and lightheaded. Cardiology consulted patient has been seen by Dr. Durham as expected he recommended adding Norvasc to his regimen, there is a question about adherence to imdor. Patient on aspirin and Plavix, imdor. Lipitor, coronary, lisinopril I saw the patient in the room he still with pain 6 out of 10, no abdominal pain diarrhea constipation, dysuria urgency frequency, orthopnea or PND Review of Systems All 10 systems reviewed and was positive for what is mentioned in history of present illness otherwise negative Past Family Social History Past Medical History Hyperlipidemia Hypertension CAD Past Surgical History Multiple cardiac catheter Allergies: Coded Allergies: No Known Allergies (Unverified , 07/31/16) Family History His grand mother had heart attack Social History Patient stated he quit smoking in April, then he admitted still smoking every now and then, denied alcohol or illicit drug abuse Physical Exam Vital Signs Vital Signs Date Time Temp Pulse Resp B/P Pulse Ox O2 Delivery O2 Flow Rate FiO2 08/16/16 12:23 97.8 82 17 132/90 100 Room Air 08/16/16 12:00 63 14 140/86 100 Room Air 08/16/16 10:02 97.8 58 18 155/93 99 Room Air 08/16/16 07:05 97.8 66 17 156/75 98 Room Air 08/16/16 07:05 70 18 98 Room Air 08/16/16 07:05 98 Room Air 08/16/16 07:00 17 08/16/16 06:35 61 18 136/91 99 Room Air 08/16/16 06:01 75 18 147/70 97 Room Air 08/16/16 05:42 66 18 144/86 99 Room Air 08/16/16 04:38 64 18 131/77 97 Room Air 08/16/16 03:15 66 18 141/89 97 Room Air 08/16/16 03:12 98 Room Air 08/16/16 02:32 100 Room Air 08/16/16 02:30 97 18 100 08/16/16 02:25 98.5 117 20 186/114 97 Room Air Physical Exam GENERAL: This is a well-nourished, well-developed patient, in no apparent distress. SKIN: No rashes, warm and dry HEAD: Atraumatic. Normocephalic. EYES: Pupils equal round and reactive. Extraocular motions intact. No scleral icterus. ENT: Nose without bleeding, or drainage, Airway patent. NECK: Trachea midline. Supple CARDIOVASCULAR: Regular rate and rhythm without murmurs, gallops, or rubs. RESPIRATORY: Fair air entry bilaterally. No wheezes, rales, or rhonchi. GASTROINTESTINAL: Abdomen soft, non-tender, nondistended. Positive bowel sounds MUSCULOSKELETAL: Extremities without clubbing, cyanosis, or edema. Pedal pulses appreciated NEUROLOGICAL: Awake and alert. Moves all extremity. Normal speech.no focal neurological deficit Laboratory Laboratory Tests Test 08/16/16 08/16/16 03:05 09:32 White Blood Count 10.4 Red Blood Count 4.58 Hemoglobin 15.3 Hematocrit 42.3 Mean Corpuscular Volume 92.4 Mean Corpuscular Hemoglobin 33.4 Mean Corpuscular Hemoglobin 36.2 Concent Red Cell Distribution Width 13.5 Platelet Count 385 Mean Platelet Volume 8.4 Neutrophils (%) (Auto) 44.6 Lymphocytes (%) (Auto) 43.2 Monocytes (%) (Auto) 7.5 Eosinophils (%) (Auto) 2.9 Basophils (%) (Auto) 1.8 Neutrophils # (Auto) 4.6 Lymphocytes # (Auto) 4.5 Monocytes # (Auto) 0.8 Eosinophils # (Auto) 0.3 Basophils # (Auto) 0.2 CBC Comment AUTO DIFF Differential Comment AUTO DIFF CONFIRMED Platelet Estimate HIGH Platelet Morphology Comment NORMAL Red Cell Morphology Comment NORMAL Prothrombin Time 11.3 Prothromb Time International 1.0 Ratio Activated Partial 31.1 Thromboplast Time Sodium Level 139 Potassium Level 3.6 Chloride Level 104 Carbon Dioxide Level 24.9 Anion Gap 10 Blood Urea Nitrogen 8 Creatinine 0.96 Estimat Glomerular Filtration 86 Rate Random Glucose 128 Calcium Level 9.5 Magnesium Level 2.0 Total Bilirubin 0.4 Aspartate Amino Transf 24 (AST/SGOT) Alanine Aminotransferase 22 (ALT/SGPT) Alkaline Phosphatase 102 Total Creatine Kinase 130 85 Creatine Kinase MB 0.6 Troponin I LESS THAN 0.02 LESS THAN 0.02 Total Protein 8.4 Albumin 4.8 Lipase 366 Result Diagram: 08/16/165 08/16/165 Imaging Last Impressions Chest X-Ray 08/16/16248 Signed Impressions: Service Date/Time: Tuesday, August 16, 2016 02:45 - CONCLUSION: Stable chest x-ray. No acute cardiopulmonary abnormality is identified. Goldy Evans MD CT Angiography 08/16/16248 Signed Impressions: Service Date/Time: Tuesday, August 16, 2016 04:04 - CONCLUSION: 1. No PE is identified. 2. Stable bilateral upper lobe paraseptal emphysema and biapical blebs. 3. Stable 12 mm calcified nodule in the left upper lobe and stable asymmetric scarring at the right lung apex. Goldy Evans MD Lower Extremity Ultrasound 08/16/16 0000 Signed Impressions: Service Date/Time: Tuesday, August 16, 2016 11:45 - CONCLUSION: 1. Expected, pre-arterial 7 x 6 x 3 mm hematoma. No pseudoaneurysm or AV fistula. 2. Likely reactive right inguinal lymph nodes. Micha Rivers MD Assessment and Plan Assessment and Plan 41 years old male with history of coronary artery disease hypertension hyperlipidemia came with Persistent chest pain Per previous catheter there was restenosis of the bare-metal stenting placed in April, so patient had another bare metal stenting Questionable Imdur/medication and noncompliant Consulted cardiology, appreciated Dr. Durham consult, will continue medical management added CCB Norvasc, will monitor improvement EKG personally reviewed by me, CT chest no PE personally reviewed by me, cardiac enzymes -2 sets Continue aspirin and Plavix Hypertension: Continue Imdur, lisinopril, Coreg, added Norvasc Hyperlipidemia: Continue statin DVT prophylaxis with heparin Discussed Condition With ED physician and patient Ceasar John MD Aug 16, 2016 14:37
[2016-08-16 15:49] LABS: CREATINE KINASE 92 U/L (39-308)
--- NOTE | 2016-08-16 16:55 | EKG ---
Date Performed: 08/16/2016 Time Performed: 02:35:31 PTAGE: 41 years EKG: Sinus rhythm POSSIBLE LEFT ATRIAL ENLARGEMENT INDETERMINATE AXIS INCOMPLETE RIGHT BUNDLE BRANCH BLOCK LEFT ANTERI OR FASCICULAR BLOCK MODERATE ST DEPRESSION ABNORMAL ECG Compared to prior tracing no significant [place] PREVIOUS TRACING : 08/01/2016 05.55 DOCTOR: Wesley Hollis Interpretating Date/Time 08/16/2016 16:54:35
--- NOTE | 2016-08-16 16:55 | EKG ---
Date Performed: 08/16/2016 Time Performed: 10:08:12 PTAGE: 41 years EKG: Sinus rhythm MARKED LEFT AXIS DEVIATION ABNORMAL ECG Compared to prior tracing no significant change PREVIOUS TRACING : 07/19/2016 07.50 DOCTOR: Wesley Hollis Interpretating Date/Time 08/16/2016 16:54:43
[2016-08-16] MEDS ORDERED: MORPHINE SULFATE 4 MG/ML INJ IV PUSH PRN (21:00)
[2016-08-16] MEDS ORDERED: ATORVASTATIN 40 MG TAB PO SCH (21:00)
[2016-08-17 00:19] VITALS: BP 128/86; PULSE 69; RESP 20; TEMP 97.6; O2SAT 99
[2016-08-17 04:00] VITALS: PULSE 72
[2016-08-17 04:14] VITALS: BP 120/76; PULSE 59; RESP 20; TEMP 97.6; O2SAT 99
[2016-08-17 07:00] VITALS: PULSE 62
[2016-08-17] MEDS ORDERED: ISOSORBIDE MONONITRATE 60 MG TAB PO SCH (07:00)
[2016-08-17 07:19] VITALS: BP 128/85; PULSE 76; RESP 20; TEMP 98; O2SAT 95
[2016-08-17] MEDS: LISINOPRIL 5 MG TAB PO SCH (08:35)
[2016-08-17] MEDS: amLODIPine BESYLATE 5 MG TAB PO SCH (08:35)
[2016-08-17] MEDS: SODIUM CHLORIDE 0.9% FLUSH 10 ML FLUSH IVF PRN (08:35)
[2016-08-17] MEDS: CLOPIDOGREL 75 MG TAB PO SCH (08:35)
[2016-08-17] MEDS: ASPIRIN 81 MG CHEW TAB PO SCH (08:35)
[2016-08-17] MEDS: CARVEDILOL 3.125 MG TAB PO SCH (08:35)
[2016-08-17] MEDS ORDERED: ACETAMINOPHEN 325 MG TAB PO ONE (08:45)
--- NOTE | 2016-08-17 09:18 | PD.CARD.PN ---
Subjective Subjective Remarks No chest pain, no shortness of breath Headache after Imdur Objective Medications Current Medications Medications (Trade) Dose Ordered Sig/Frantz Route Start Time Stop Time Status Last Admin (NS Flush) 2 ml UNSCH PRN IVF 08/16/16 03:00 08/17/16 08:35 (Lipitor) 40 mg HS PO 08/16/16 21:00 08/16/16 20:34 (Coreg) 3.125 mg BID PO 08/16/16 09:00 08/17/16 08:35 (Plavix) 75 mg DAILY PO 08/16/16 09:00 08/17/16 08:35 (Imdur) 60 mg DAILY@07 PO 08/17/16 07:00 08/17/16 07:24 (Prinivil) 5 mg DAILY PO 08/16/16 09:00 08/17/16 08:35 (Aspirin Chew) 81 mg DAILY PO 08/16/16 09:00 08/17/16 08:35 (Norvasc) 5 mg DAILY PO 08/16/16 12:00 08/17/16 08:35 (Morphine Inj) 2 mg Q4H PRN IV PUSH 08/16/16 21:00 08/16/16 21:15 Vital Signs / I&O Vital Signs Date Time Temp Pulse Resp B/P Pulse Ox O2 Delivery O2 Flow Rate FiO2 08/17/16 07:19 98.0 76 20 128/85 95 08/17/16 04:14 97.6 59 20 120/76 99 08/17/16 04:00 72 08/17/16 00:19 97.6 69 20 128/86 99 08/16/16 20:00 80 08/16/16 19:29 98.4 85 20 126/76 98 08/16/16 18:36 73 08/16/16 16:15 97.5 73 16 135/87 99 08/16/16 14:56 62 08/16/16 12:23 97.8 82 17 132/90 100 Room Air 08/16/16 12:00 63 14 140/86 100 Room Air 08/16/16 10:02 97.8 58 18 155/93 99 Room Air Physical Exam GENERAL: NAD, AAOx3 SKIN: Warm and dry. HEAD: Atraumatic. Normocephalic. EYES: Pupils equal and round. No scleral icterus. No injection or drainage. ENT: No nasal bleeding or discharge. Mucous membranes pink and moist. NECK: Trachea midline. No JVD. CARDIOVASCULAR: Regular rate and rhythm. RESPIRATORY: No accessory muscle use. Clear to auscultation. Breath sounds equal bilaterally. GASTROINTESTINAL: Abdomen soft, non-tender, nondistended. Hepatic and splenic margins not palpable. MUSCULOSKELETAL: Extremities without clubbing, cyanosis, or edema. No obvious deformities. Small right groin induration, no fluctuance NEUROLOGICAL: Awake and alert. No obvious cranial nerve deficits. Motor grossly within normal limits. Five out of 5 muscle strength in the arms and legs. Normal speech. PSYCHIATRIC: Appropriate mood and affect; insight and judgment normal. Laboratory Laboratory Tests Test 08/16/16 08/16/16 09:32 14:40 Total Creatine Kinase 85 U/L 92 U/L Troponin I LESS THAN 0.02 LESS THAN 0.02 NG/ML NG/ML Assessment and Plan Problem List: (1) Chest pain (2) Coronary artery disease (3) Inguinal lymphadenopathy (4) Smoking Assessment and Plan 1) No chest pain this morning after starting on Norvasc, would continue with medical management.... EKG no changes.... Troponins negative 2) Will try to take Imdur daily, will take Tylenol for the headaches 3) Continue ASA/Plavix due to previous NSTEMI 4) Needs follow up, he will check into Dr. Rubin and if he does not take his insurance, his insurance company is looking for someone in the area that does 5) Cardiovascularly stable for discharge this morning, will see PRN, call with questions Problem Qualifiers (1) Chest pain: Qualified Code: R07.9 - Chest pain, unspecified type Ankur Durham DO Aug 17, 2016 09:18
[2016-08-17] MEDS ORDERED: AMLO5 PO (10:16)
--- NOTE | 2016-08-17 10:18 | HHI.PR ---
Subjective Remarks stated cp still at 07/26 no n/v , no sob cleared by cardio for dc Objective Vitals Vital Signs Date Time Temp Pulse Resp B/P Pulse Ox O2 Delivery O2 Flow Rate FiO2 08/17/16 07:19 98.0 76 20 128/85 95 08/17/16 04:14 97.6 59 20 120/76 99 08/17/16 04:00 72 08/17/16 00:19 97.6 69 20 128/86 99 08/16/16 20:00 80 08/16/16 19:29 98.4 85 20 126/76 98 08/16/16 18:36 73 08/16/16 16:15 97.5 73 16 135/87 99 08/16/16 14:56 62 08/16/16 12:23 97.8 82 17 132/90 100 Room Air 08/16/16 12:00 63 14 140/86 100 Room Air Result Diagram: 08/16/16 0305 08/16/16 0305 Objective Remarks GENERAL: This is a well-nourished, well-developed patient, in no apparent distress. CARDIOVASCULAR: Regular rate and rhythm without murmurs, gallops, or rubs. RESPIRATORY: Clear to auscultation. Breath sounds equal bilaterally. No wheezes , rales, or rhonchi. GASTROINTESTINAL: Abdomen soft, non-tender, nondistended. Normal active bowel sounds MUSCULOSKELETAL: Extremities without clubbing, cyanosis, or edema. NEURO: Alert & Oriented x4 to person, place, time, situation. Moves all ext x4 A/P Assessment and Plan 41 years old male with history of coronary artery disease hypertension hyperlipidemia came with Persistent chest pain Per previous catheter there was restenosis of the bare-metal stenting placed in April, so patient had another bare metal stenting Questionable Imdur/medication and noncompliant Consulted cardiology, appreciated Dr. Durham consult, will continue medical management added CCB Norvasc, relatvely improved , no intervention at this time besdie med mgnmt EKG personally reviewed by me, CT chest no PE personally reviewed by me, cardiac enzymes -2 sets Continue aspirin and Plavix Hypertension: Continue Imdur, lisinopril, Coreg, added Norvasc Hyperlipidemia: Continue statin DVT prophylaxis with heparin Discharge Planning Discharge patient to home Condition on discharge: Improved healthy heart Diet as tolerated Ad Renee activity Rx written:dara 5mg daily Follow-up with primary care physician Ceasar John MD Aug 17, 2016 10:18
--- NOTE | 2016-08-18 00:11 | EKG ---
Date Performed: 08/17/2016 Time Performed: 08:25:13 PTAGE: 41 years EKG: Sinus rhythm MARKED LEFT AXIS DEVIATION INCOMPLETE RIGHT BUNDLE BRANCH BLOCK ABNORMAL ECG PREVIOUS TRACING : 08/16/2016 20.43 DOCTOR: Gil Bush Interpretating Date/Time 08/18/2016 00:09:37
--- NOTE | 2016-08-18 21:24 | EKG ---
Date Performed: 08/16/2016 Time Performed: 20:43:17 PTAGE: 41 years EKG: Sinus rhythm WITH SINUS ARRHYTHMIA MARKED LEFT AXIS DEVIATION POSSIBLE RIGHT VENTRICULAR CONDUCTION DELAY NONSPEC IFIC ST ELEVATION ABNORMAL ECG PREVIOUS TRACING : 08/16/2016 10.08 DOCTOR: Gil Bush Interpretating Date/Time 08/18/2016 21:21:54
== END 2016-08-17 13:15 | disposition home or self-care (01) ==
LOC: NEPE 02:24 → NEDA 07:26 → NEDH 11:42 → NEPHCDU 13:57
PROVIDERS: ADMIT Hospitalist; ATTEND Hospitalist
DX: R07.89 Other chest pain (principal); R06.02 Shortness of breath; I25.10 Atherosclerotic heart disease of native coronary artery without angina pectoris; J45.909 Unspecified asthma, uncomplicated; E78.5 Hyperlipidemia, unspecified; F41.9 Anxiety disorder, unspecified; F32.9 Major depressive disorder, single episode, unspecified; E78.00 Pure hypercholesterolemia, unspecified; I10 Essential (primary) hypertension; I25.2 Old myocardial infarction; F17.210 Nicotine dependence, cigarettes, uncomplicated; Z79.02 Long term (current) use of antithrombotics/antiplatelets; Z79.82 Long term (current) use of aspirin
CPT/HCPCS: 71010; 71275; 80053; 82550; 82552; 83690; 83735; 84484; 85025; 85610; 85730; 93005; 93926; 96374; 96375; 99285; G0378; J1170; J2270; Q9967

== ENCOUNTER 2016-09-22 13:44 | Observation (INO) | payer OTHER ==
[~2016-09-22] VITALS: Ht 188 cm; Wt 79.5 kg
[2016-09-22] VITALS (7 sets, daily range): BP systolic 126–171; BP diastolic 73–86; PULSE 58–85; RESP 18–22; TEMP 96.4–98.1; O2SAT 98–100
[~2016-09-22 13:44] MED LIST changes: +AMLO5 PO
[2016-09-22] MEDS ORDERED: ASPIRIN 81 MG CHEW TAB PO ONE (14:15)
[2016-09-22] MEDS ORDERED: SODIUM CHLORIDE 0.9% FLUSH 10 ML FLUSH IVF PRN (14:15)
--- NOTE | 2016-09-22 14:40 | RADRPT ---
EXAM DATE/TIME: 09/22/2016 14:22 [facility] COMPARISON: CHEST SINGLE AP, August 16, 2016, 2:45. INDICATIONS : Cardiac pain. MEDICAL HISTORY : Hypertension. Hypercholesterolemia. SURGICAL HISTORY : None. ENCOUNTER: Initial ACUITY: 1 day PAIN SCORE: 0/10 LOCATION: Bilateral chest FINDINGS: PA and lateral views of the chest demonstrate the lungs to be symmetrically aerated without evidence of mass, infiltrate or effusion. The cardiomediastinal contours are unremarkable. Osseous structure s are intact. There are overlying electrocardiogram leads. CONCLUSION: No acute disease. Mateusz Rangel MD on September 22, 2016 at 14:37 Board Certified Radiologist. This report was verified electronically.
[2016-09-22 14:58] LABS: AUTOMATED NEUTROPHIL # 4.7 TH/MM3 (1.8-7.7); BASOPHIL # 0.1 TH/MM3 (0-0.2); BASOPHIL % 1.1 % (0.0-2.0); EOSINOPHIL # 0.1 TH/MM3 (0-0.4); EOSINOPHIL % 1.4 % (0.0-4.0); HEMATOCRIT 43.3 % (39.0-51.0); HEMO FLAGS DIFF FINAL; LYMPH % 32.6 % (9.0-44.0); LYMPHOCYTE # 2.6 TH/MM3 (1.0-4.8); MEAN CELL VOLUME 94.1 FL (80.0-100.0); MEAN CORPUSCULAR HEMOGLOBIN 32.5 PG (27.0-34.0); MEAN CORPUSCULAR HGB CONC 34.5 % (32.0-36.0); MONO % 7.1 % (0.0-8.0); NEUT % 57.8 % (16.0-70.0); PLATELET COUNT 315 TH/MM3 (150-450); RED BLOOD COUNT 4.59 MIL/MM3 (4.50-5.90); RED CELL DISTRIBUTION WIDTH 13.6 % (11.6-17.2); WHITE BLOOD COUNT 8.1 TH/MM3 (4.0-11.0)
[2016-09-22 15:20] LABS: APTT (PATIENT) 30.6 SEC (24.3-30.1); PROTHROMBIN TIME - PATIENT 11.1 SEC (9.8-11.6)
[2016-09-22 15:35] LABS: ANION GAP 7 MEQ/L (5-15); BICARBONATE 24.4 MEQ/L (21.0-32.0); BLOOD UREA NITROGEN 5 MG/DL (7-18); CHLORIDE 105 MEQ/L (98-107); GLOMERULAR FILTRATION RATE 85 ML/MIN (>89); MAGNESIUM 2.1 MG/DL (1.5-2.5); POTASSIUM 4.2 MEQ/L (3.5-5.1); SODIUM (NA) 136 MEQ/L (136-145)
[2016-09-22 15:36] LABS: CREATINE KINASE 123 U/L (39-308)
[2016-09-22 15:49] LABS: CKMB 1.5 NG/ML (0.5-3.6)
[2016-09-22] MEDS ORDERED: MORPHINE SULFATE 4 MG/ML INJ IV PUSH ONE (16:45)
[2016-09-22] MEDS ORDERED: ONDANSETRON HCL 4 MG/2 ML VIAL IV PUSH PRN (17:15)
[2016-09-22] MEDS: ASPIRIN 81 MG CHEW TAB PO SCH (17:15)
--- NOTE | 2016-09-22 17:15 | HHI.HP ---
[facility] Service [place] Hospitalists Primary Care Physician Unknown Admission Diagnosis Chest Pain Diagnoses: (1) Chest pain Diagnosis: Principal Chief Complaint: chest pain Travel History International Travel<30 Days: No Contact w/Intl Traveler <30 Da: No Traveled to Known Affected Are: No History of Present Illness patient is a 41 y/o male with history of CAD- s/p stent placement in 2015 presented to ER with chest pain. he says that he's had on and off chest pain but this time it started two days ago. pain is midsternal, sharp with some radiation to the left chest wall. it was associated with some nausea, sob and diaphoresis. he says that he's taking all his medications but he ran out of his norvasc about a week ago. 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 Review of Systems Constitutional: COMPLAINS OF: Diaphoretic episodes, DENIES: Fever, Weight loss , Chills, Night Sweats Eyes: DENIES: Blurred vision, Diplopia, Vision loss, Double Vision Ears, nose, mouth, throat: DENIES: Tinnitus, Vertigo, Throat pain, Epistaxis Respiratory: COMPLAINS OF: Shortness of breath, DENIES: Apneas, Cough, Snoring , Wheezing, Hemoptysis, Sputum production Cardiovascular: COMPLAINS OF: Chest pain, DENIES: Palpitations, Syncope, Dyspnea on Exertion, PND, Lower Extremity Edema, Orthopnea, Claudication Gastrointestinal: COMPLAINS OF: Nausea, DENIES: Abdominal pain, Black stools, Bloody stools, Constipation, Diarrhea, Vomiting, Difficulty Swallowing, Anorexia Genitourinary: DENIES: Urinary frequency, Urgency, Hematuria, Dysuria Musculoskeletal: DENIES: Joint pain, Muscle aches, Stiffness, Joint Swelling Integumentary: DENIES: Rash Neurologic: DENIES: Abnormal gait, Headache, Localized weakness, Paresthesias, Seizures, Speech Problems, Tremor, Poor Balance Psychiatric: DENIES: Anxiety, Confusion, Mood changes, Depression, Hallucinations, Agitation, Suicidal Ideation, Homicidal Ideation, Delusions Past Family Social History Past Medical History CAD hydrocephalus Past Surgical History cardiac stent placement brain surgery Reported Medications aspirin plavix imdur norvasc coreg lipitor Allergies: Coded Allergies: No Known Allergies (Unverified , 09/22/16) Active Ordered Medications Current Medications Aspirin (Aspirin Chew) 324 mg ONCE ONCE PO Last administered on 09/22/16 14:28 ; Start 09/22/16 at 14:15; Stop 09/22/16 at 14:16; Status DC Sodium Chloride (NS Flush) 2 ml UNSCH PRN IVF FLUSH AFTER USING IV ACCESS; Start 09/22/16 at 14:15 Morphine Sulfate (Morphine Inj) 4 mg ONCE ONCE IV PUSH Last administered on 17:04; Start 09/22/16 at 16:45; Stop 09/22/16 at 16:46; Status DC Family History heart disease in grandmother. Social History smokes three cigarettes a day- doesn't drink. Physical Exam Vital Signs Vital Signs Date Time Temp Pulse Resp B/P Pulse Ox O2 Delivery O2 Flow Rate FiO2 09/22/16 16:06 64 18 132/81 100 Room Air 09/22/16 14:29 80 18 148/73 100 Room Air 09/22/16 14:24 100 Room Air 09/22/16 14:24 100 Room Air 09/22/16 13:53 71 18 159/86 100 Room Air 09/22/16 13:48 98.1 85 22 171/86 100 Physical Exam GENERAL: This is a well-nourished, well-developed patient, in no apparent distress. SKIN: No rashes, ecchymoses or lesions. Cool and dry. HEAD: Atraumatic. Normocephalic. No temporal or scalp tenderness. EYES: Pupils equal round and reactive. Extraocular motions intact. No scleral icterus. No injection or drainage. ENT: Nose without bleeding, purulent drainage or septal hematoma. Throat without erythema, tonsillar hypertrophy or exudate. Uvula midline. Airway patent. NECK: Trachea midline. No JVD or lymphadenopathy. Supple, nontender, no meningeal signs. CARDIOVASCULAR: Regular rate and rhythm without murmurs, gallops, or rubs. RESPIRATORY: Clear to auscultation. Breath sounds equal bilaterally. No wheezes , rales, or rhonchi. GASTROINTESTINAL: Abdomen soft, non-tender, nondistended. No hepato-splenomegaly , or palpable masses. No guarding. MUSCULOSKELETAL: Extremities without clubbing, cyanosis, or edema. No joint tenderness, effusion, or edema noted. No calf tenderness. Negative Homans sign bilaterally. NEUROLOGICAL: Awake and alert. Cranial nerves II through XII intact. Motor and sensory grossly within normal limits. Five out of 5 muscle strength in all muscle groups. Normal speech. Laboratory Laboratory Tests Test 09/22/16 13:57 White Blood Count 8.1 Red Blood Count 4.59 Hemoglobin 14.9 Hematocrit 43.3 Mean Corpuscular Volume 94.1 Mean Corpuscular Hemoglobin 32.5 Mean Corpuscular Hemoglobin 34.5 Concent Red Cell Distribution Width 13.6 Platelet Count 315 Mean Platelet Volume 8.2 Neutrophils (%) (Auto) 57.8 Lymphocytes (%) (Auto) 32.6 Monocytes (%) (Auto) 7.1 Eosinophils (%) (Auto) 1.4 Basophils (%) (Auto) 1.1 Neutrophils # (Auto) 4.7 Lymphocytes # (Auto) 2.6 Monocytes # (Auto) 0.6 Eosinophils # (Auto) 0.1 Basophils # (Auto) 0.1 CBC Comment DIFF FINAL Differential Comment Prothrombin Time 11.1 Prothromb Time International 1.0 Ratio Activated Partial 30.6 Thromboplast Time Sodium Level 136 Potassium Level 4.2 Chloride Level 105 Carbon Dioxide Level 24.4 Anion Gap 7 Blood Urea Nitrogen 5 Creatinine 0.97 Estimat Glomerular Filtration 85 Rate Random Glucose 101 Calcium Level 9.2 Magnesium Level 2.1 Total Creatine Kinase 123 Creatine Kinase MB 1.5 Troponin I LESS THAN 0.02 Result Diagram: 09/22/16 1357 09/22/16 1357 Imaging Last Impressions Chest X-Ray 09/22/16 1411 Signed Impressions: Service Date/Time: Thursday, September 22, 2016 14:22 - CONCLUSION: No acute disease. Mateusz Rangel MD EKG; sinus rhythm with no acute ST-T changes. Assessment and Plan Assessment and Plan A/P - chest pain with history of CAD- s/p stent placement ( last in April/2016) continue aspirin, plavix, lipitor, imdur, coreg and lisinopril will trend the cardiac enzymes. consult cardiology. Discussed Condition With ER physician and the patient. Problem Qualifiers (1) Chest pain: Qualified Code: R07.9 - Chest pain, unspecified type Mary Horne MD September 22, 2016 17:15
[2016-09-22] MEDS: SODIUM CHLOR 0.9% 1000 ML INJ 1,000 ML IV SCH (17:24)
--- NOTE | 2016-09-22 17:27 | PD ---
HPI Chief Complaint: Chest Pain Time Seen by Provider: 13:51 Travel History International Travel<30 days: No Contact w/Intl Traveler<30days: No Traveled to known affect area: No History of Present Illness HPI Patient is a 41 year old male with history of cardiac issues, including recent STEMI in july, requiring stenting, who comes in complaining of chest pain. He says that the pain started this morning, is on the left side and is sharp in nature. He is still smoking 3 cigarettes per day. He denies SOB, nausea or vomiting. PFSH Past Medical History Asthma: Yes Blood Disorders: No Anxiety: Yes Depression: Yes Heart Rhythm Problems: Yes ("palpitations, fluttering and racing") Cancer: No Cardiac Catheterization: Yes Cardiovascular Problems: Yes High Cholesterol: Yes Chest Pain: Yes Congestive Heart Failure: No Coronary Artery Disease: Yes Diminished Hearing: No Endocrine: No Genitourinary: No Hypertension: Yes Immune Disorder: No Implanted Vascular Access Dvce: Yes Musculoskeletal: Yes Neurologic: Yes (hydrocephalus) Psychiatric: Yes Reproductive: No Respiratory: No Migraines: Yes Myocardial Infarction: Yes Past Surgical History Body Medical Devices: STENTS PLACED 04/2016 Cardiac Surgery: Yes Neurologic Surgery: Yes (shunt for hydrocephalus and removal) Other Surgery: Yes Social History Alcohol Use: No Tobacco Use: Yes Substance Use: No Allergies-Medications (Allergen,Severity, Reaction): Coded Allergies: No Known Allergies (Unverified , 09/22/16) Reported Meds & Prescriptions Reported Meds & Active Scripts Active Lisinopril 5 Mg Tab 5 Mg PO DAILY Isosorbide Mononitrate ER (Isosorbide Mononitrate) 60 Mg Tab 60 Mg PO DAILY@07 Lipitor (Atorvastatin Calcium) 40 Mg Tab 40 Mg PO HS Plavix (Clopidogrel Bisulfate) 75 Mg Tab 75 Mg PO DAILY 30 Days Nitroglycerin SL (Nitroglycerin) 0.4 Mg Subl 0.4 Mg SL DIRECTED PRN ONE TABLET UNDER THE TONGUE NEEDED FOR CHEST PAIN, MAY REPEAT EVERY FIVE MINUTES FOR A TOTAL OF 3 DOSES OR CALL 911 IF NO RELIEF Coreg (Carvedilol) 3.125 Mg Tab 3.125 Mg PO BID [Aspirin Chew] 81 MG Chew 81 Mg PO DAILY Review of Systems Except as stated in HPI: all other systems reviewed are Neg General / Constitutional: No: Fever, Chills HENT: No: Headaches Cardiovascular: Positive: Chest Pain or Discomfort Respiratory: No: Cough, Shortness of Breath Gastrointestinal: No: Nausea, Vomiting Musculoskeletal: No: Myalgias Skin: No Rash Neurologic: No: Weakness, Dizziness Physical Exam Narrative GENERAL: Awake and alert, in no acute distress. SKIN: Focused skin assessment warm/dry. HEAD: Atraumatic. Normocephalic. EYES: Pupils equal and round. No scleral icterus. ENT: Mucous membranes pink and moist. NECK: Trachea midline. No JVD. CARDIOVASCULAR: Regular rate and rhythm. No murmur appreciated. RESPIRATORY: No accessory muscle use. Clear to auscultation. Breath sounds equal bilaterally. GASTROINTESTINAL: Abdomen soft, non-tender, nondistended. MUSCULOSKELETAL: No obvious deformities. No clubbing. No cyanosis. No edema. NEUROLOGICAL: Awake and alert. No obvious cranial nerve deficits. Motor grossly within normal limits. Normal speech. PSYCHIATRIC: Appropriate mood and affect; insight and judgment normal. Data Data Last Documented VS Vital Signs Date Time Temp Pulse Resp B/P Pulse Ox O2 Delivery O2 Flow Rate FiO2 09/22/16 16:06 64 18 132/81 100 Room Air 09/22/16 13:48 98.1 Orders Basic Metabolic Panel (Bmp) (09/22/16 14:11) Ckmb (Isoenzyme) Profile (09/22/16 14:11) Complete Blood Count With Diff (09/22/16 14:11) Magnesium (Mg) (09/22/16 14:11) Prothrombin Time / Inr (Pt) (09/22/16 14:11) Act Partial Throm Time (Ptt) (09/22/16 14:11) Troponin I (09/22/16 14:11) Ecg Monitoring (09/22/16 14:11) Bilateral Bp Monitoring (09/22/16 14:11) Iv Access Insert/Monitor (09/22/16 14:11) Oximetry (09/22/16 14:11) Oxygen Administration (09/22/16 14:11) Aspirin Chew (Aspirin Chew) (09/22/16 14:15) Sodium Chloride 0.9% Flush (Ns Flush) (09/22/16 14:15) Chest, Pa & Lat (09/22/16 14:11) Electrocardiogram (09/22/16 14:25) CKMB (09/22/16 13:57) CKMB% (09/22/16 13:57) Morphine Inj (Morphine Inj) (09/22/16 16:45) Admit Order (Ed Use Only) (09/22/16 ) Labs Laboratory Tests Test 09/22/16 13:57 White Blood Count 8.1 TH/MM3 Red Blood Count 4.59 MIL/MM3 Hemoglobin 14.9 GM/DL Hematocrit 43.3 % Mean Corpuscular Volume 94.1 FL Mean Corpuscular Hemoglobin 32.5 PG Mean Corpuscular Hemoglobin 34.5 % Concent Red Cell Distribution Width 13.6 % Platelet Count 315 TH/MM3 Mean Platelet Volume 8.2 FL Neutrophils (%) (Auto) 57.8 % Lymphocytes (%) (Auto) 32.6 % Monocytes (%) (Auto) 7.1 % Eosinophils (%) (Auto) 1.4 % Basophils (%) (Auto) 1.1 % Neutrophils # (Auto) 4.7 TH/MM3 Lymphocytes # (Auto) 2.6 TH/MM3 Monocytes # (Auto) 0.6 TH/MM3 Eosinophils # (Auto) 0.1 TH/MM3 Basophils # (Auto) 0.1 TH/MM3 CBC Comment DIFF FINAL Differential Comment Prothrombin Time 11.1 SEC Prothromb Time International 1.0 RATIO Ratio Activated Partial 30.6 SEC Thromboplast Time Sodium Level 136 MEQ/L Potassium Level 4.2 MEQ/L Chloride Level 105 MEQ/L Carbon Dioxide Level 24.4 MEQ/L Anion Gap 7 MEQ/L Blood Urea Nitrogen 5 MG/DL Creatinine 0.97 MG/DL Estimat Glomerular Filtration 85 ML/MIN Rate Random Glucose 101 MG/DL Calcium Level 9.2 MG/DL Magnesium Level 2.1 MG/DL Total Creatine Kinase 123 U/L Creatine Kinase MB 1.5 NG/ML Troponin I LESS THAN 0.02 NG/ML MDM Medical Decision Making Medical Screen Exam Complete: Yes Emergency Medical Condition: Yes Medical Record Reviewed: Yes Interpretation(s) ECG shows normal sinus rhythm, no ST elevation or depression Differential Diagnosis ACS versus NSTEMI versus STEMI Narrative Course Patient is a 41-year-old male with history of cardiac issues, including recent STEMI with stenting, who comes in complaining of chest pain. Exam shows no acute abnormalities. IV established, labs sent, patient connected to the cardiac catheterization technician. ECG shows no signs of ischemia. Labs including troponin are negative. Chest x- ray shows no acute abnormalities. I spoke with Dr. Bergman of cardiology, who recommends observation with the hospitalist for further management. Diagnosis Primary Impression: Chest pain, rule out acute myocardial infarction Admitting Information Admitting Physician Requests: Observation Scripts Amlodipine (Norvasc)5 Mg Tab5 Mg PO DAILY #30 TAB Ref 1 Prov:Mary Horne MD 09/24/16 Condition: Stable Dea Kerr MD September 22, 2016 17:27
[2016-09-22] MEDS: CARVEDILOL 3.125 MG TAB PO SCH (21:00)
[2016-09-22] MEDS: ATORVASTATIN 40 MG TAB PO SCH (21:22)
[2016-09-22] MEDS: MORPHINE SULFATE 4 MG/ML INJ IV PUSH PRN (21:23)
[2016-09-23] VITALS (9 sets, daily range): BP systolic 115–136; BP diastolic 55–93; PULSE 53–72; RESP 18–22; TEMP 97.8–98.8; O2SAT 96–98
[2016-09-23] MEDS: SODIUM CHLOR 0.9% 1000 ML INJ 1,000 ML IV SCH ×3 (03:55→16:36)
[2016-09-23] MEDS: MORPHINE SULFATE 4 MG/ML INJ IV PUSH PRN ×3 (03:56→22:53)
[2016-09-23] MEDS: ISOSORBIDE MONONITRATE 60 MG TAB PO SCH (06:43)
--- NOTE | 2016-09-23 07:39 | HHI.PR ---
Subjective Remarks in no acute distress. although complaining of some chest pain. otherwise no other complaints. Objective Vitals Vital Signs Date Time Temp Pulse Resp B/P Pulse Ox O2 Delivery O2 Flow Rate FiO2 09/23/16 04:04 18 09/23/16 04:00 98.8 64 22 130/80 98 09/23/16 01:54 53 09/22/16 23:00 97.2 60 20 126/78 98 09/22/16 20:00 96.4 58 20 132/82 100 09/22/16 17:31 18 09/22/16 16:06 64 18 132/81 100 Room Air 09/22/16 14:29 80 18 148/73 100 Room Air 09/22/16 14:24 100 Room Air 09/22/16 14:24 100 Room Air 09/22/16 13:53 71 18 159/86 100 Room Air 09/22/16 13:48 98.1 85 22 171/86 100 I/O 09/22/16 09/22/16 09/22/16 09/23/16 09/23/16 09/23/16 07:00 15:00 23:00 07:00 15:00 23:00 Output Total 300 ml Balance -300 ml Output Urine Total 300 ml Result Diagram: 09/22/16 1357 09/22/16 1357 Imaging Last Impressions Chest X-Ray 09/22/16 1411 Signed Impressions: Service Date/Time: Thursday, September 22, 2016 14:22 - CONCLUSION: No acute disease. Mateusz Rangel MD Objective Remarks GENERAL: This is a well-nourished, well-developed patient, in no apparent distress. CARDIOVASCULAR: Regular rate and regular rhythm without murmurs, gallops, or rubs. RESPIRATORY: Clear to auscultation. Breath sounds equal bilaterally. No wheezes , rales, or rhonchi. GASTROINTESTINAL: Abdomen soft, non-tender, nondistended. Normal, active bowel sounds MUSCULOSKELETAL: Extremities without clubbing, cyanosis, or edema. NEURO: Alert & Oriented x4 to person, place, time, situation. Moves all ext x4 Procedures none Medications and IVs Current Medications Aspirin (Aspirin Chew) 324 mg ONCE ONCE PO Last administered on 09/22/16t 14:28 ; Start 09/22/16 at 14:15; Stop 09/22/16 at 14:16; Status DC Sodium Chloride (NS Flush) 2 ml UNSCH PRN IVF FLUSH AFTER USING IV ACCESS; Start 09/22/16 at 14:15 Morphine Sulfate 4 mg 4 mg ONCE ONCE IV PUSH Last administered on 09/22/16 17: 04; Start 09/22/16 at 16:45; Stop 09/22/16 at 16:46; Status DC Sodium Chloride (NS 1000 ml Inj) 1,000 ml @ 100 mls/hr Q10H IV Last administered on 09/23/16 03:55; Start 09/22/16 at 17:15 Amlodipine Besylate (Norvasc) 5 mg DAILY PO ; Start 09/23/16 at 09:00 Atorvastatin Calcium (Lipitor) 40 mg HS PO Last administered on 09/22/16 21:22 ; Start 09/22/16 at 21:00 Carvedilol (Coreg) 3.125 mg BID PO ; Start 09/22/16 at 21:00 Clopidogrel Bisulfate (Plavix) 75 mg DAILY PO ; Start 09/23/16 at 09:00 Isosorbide Mononitrate (Imdur) 60 mg DAILY@07 PO Last administered on 09/23/16 06:43; Start 09/23/16 at 07:00 Lisinopril (Prinivil) 5 mg DAILY PO ; Start 09/23/16 at 09:00 Aspirin (Aspirin Chew) 81 mg DAILY PO ; Start 09/22/16 at 17:15 Morphine Sulfate (Morphine Inj) 2 mg Q4HR PRN IV PUSH PAIN 1-10 Last administered on 09/23/16 03:56; Start 09/22/16 at 17:15 Ondansetron HCl (Zofran Inj) 4 mg Q8HR PRN IV PUSH NAUSEA; Start 09/22/16 at 17: 15 A/P Assessment and Plan A/P - chest pain with history of CAD- s/p stent placement ( last in April/2016) continue aspirin, plavix, lipitor, imdur, coreg and lisinopril cardiac enzymes negative.awaiting cardiology evaluation. Discharge Planning pending cardiology consult. Mary Horne MD September 23, 2016 07:39
[2016-09-23] MEDS ORDERED: AMLO5 PO (07:40)
[2016-09-23] MEDS: CLOPIDOGREL 75 MG TAB PO SCH (10:00)
[2016-09-23] MEDS: LISINOPRIL 5 MG TAB PO SCH (10:00)
[2016-09-23] MEDS: amLODIPine BESYLATE 5 MG TAB PO SCH (10:01)
[2016-09-23] MEDS: ASPIRIN 81 MG CHEW TAB PO SCH (10:01)
[2016-09-23] MEDS: CARVEDILOL 3.125 MG TAB PO SCH ×2 (10:01→20:43)
--- NOTE | 2016-09-23 11:24 | EKG ---
Date Performed: 09/22/2016 Time Performed: 13:47:47 PTAGE: 41 years EKG: Sinus rhythm INDETERMINATE AXIS ATYPICAL ECG INTERPRETATION BASED ON A DEFAULT AGE OF 39 YEARS PREVIOUS TRACING : 08/17/2016 08.25 DOCTOR: Sancho Xavier Interpretating Date/Time 09/23/2016 11:19:45
--- NOTE | 2016-09-23 14:56 | MB ---
cc: ANGELO MAURER DATE OF CONSULTATION: 09/23/2016 1975 REASON FOR CONSULTATION Chest pain. HISTORY OF PRESENT ILLNESS 41-year-old male with past medical history significant for coronary artery disease status post stent in April 2016 to OM1 and pullback to OM2, hypertension, hyperlipidemia, smoker, that presented to the hospital with complaints of on and off chest pain for 3 days. He describes the pain as sharp , located to the left mid sternal region, worsened with inspiration and reproducible to palpation. He denies nausea, vomiting, diarrhea, fevers, chills or shortness of breath. He reports being compliant with medications however, he has not been seen by steam distribution supervisor since the stent was put in. Of note, after his stent placement in April of 2016 he was subsequently cathed by Dr. Dasilva twice, the last time being on July 31, 2016. At that time Dr. Dasilva did a POBA/PCI to OM1. REVIEW OF SYSTEMS Negative except for what is mentioned in the HPI. PAST MEDICAL HISTORY 1. CAD. 2. Hydrocephalus. 3. Smoking. PAST SURGICAL HISTORY 1. Cardiac stents. 2. Brain surgery. MEDICATION Home medications: 1. Aspirin. 2. Plavix. 3. Imdur. 4. Norvasc. 5. Coreg. 6. Lipitor. ALLERGIES NO KNOWN DRUG ALLERGIES. FAMILY HISTORY Noncontributory. SOCIAL HISTORY Denies illicit drug use, alcohol. He does smoke. PHYSICAL EXAMINATION VITAL SIGNS: Temperature 97, heart rate 61, respiratory rate 21, blood pressure 119/68, O2 sat 96% on room air. GENERAL: Awake, alert, oriented x3, in no acute distress. NECK: No JVD, no carotid bruits. HEART: Regular rate and rhythm. No murmurs, rubs or gallops. There is pain on palpation on the left side of the chest. LUNGS: Clear to auscultation bilaterally. No wheezes or rhonchi or rales. ABDOMEN: Soft, nontender, nondistended. Positive bowel sounds. EXTREMITIES: No cyanosis or edema and pulses throughout. DATA CBC hemoglobin 14, hematocrit 43, platelet count 315, INR 1. Chemistries: sodium 136, potassium 4.2, BUN 5, creatinine 0.97, troponin less than 0.02 x3. Chest x-ray shows no acute cardiopulmonary process. Echocardiogram done in July 2016 shows an EF of 55-60% with no wall motion abnormalities. ASSESSMENT/PLAN 41-year-old male with past medical history significant of coronary artery disease status post recent stent, admitted with what seems like pleuritic chest pain in the setting of recent stents. He remains afebrile and hemodynamically stable. He does complain of chest pain, however this chest pain is on palpation and on deep inspiration. He reports being compliant with medication, however, this seems to be questionable. He has not seen a steam distribution supervisor since last being in the hospital. The cardiac markers have been negative x3 as well as EKG. At this point I will recommend aggressive medical management for secondary prevention of coronary artery disease. Consider starting colchicine and ibuprofen for pericarditis. When the patient is stable he can be discharged home with followup with his primary steam distribution supervisor. He should continue on aspirin and Plavix, Lipitor, Imdur, Coreg and lisinopril. MD ELISEO Vazquez/TLL /10:01 AM /2:21 PM VINAY
[2016-09-23] MEDS ORDERED: ACETAMINOPHEN 325 MG TAB PO PRN (16:30)
[2016-09-23] MEDS: ATORVASTATIN 40 MG TAB PO SCH (20:43)
[2016-09-24] MEDS: SODIUM CHLOR 0.9% 1000 ML INJ 1,000 ML IV SCH (02:49)
[2016-09-24 04:11] VITALS: BP 128/62; PULSE 69; RESP 18; TEMP 98.4; O2SAT 100
[2016-09-24] MEDS: ISOSORBIDE MONONITRATE 60 MG TAB PO SCH (06:43)
[2016-09-24 07:51] VITALS: BP 146/82; PULSE 65; RESP 15; TEMP 97.8; O2SAT 100
--- NOTE | 2016-09-24 09:15 | HHI.PR ---
Subjective Remarks in no acute distress. says that chest pain is better today. no sob or any other complaints. Objective Vitals Vital Signs Date Time Temp Pulse Resp B/P Pulse Ox O2 Delivery O2 Flow Rate FiO2 09/24/16 07:51 97.8 65 15 146/82 100 09/24/16 04:11 98.4 69 18 128/62 100 09/23/16 23:37 98.1 59 18 130/83 98 09/23/16 20:00 72 09/23/16 19:59 98.4 72 21 130/69 98 09/23/16 15:53 98.8 71 20 136/93 98 09/23/16 13:14 55 09/23/16 11:41 98.8 64 18 115/55 98 Result Diagram: 09/22/16 1357 09/22/16 1357 Imaging Last Impressions Chest X-Ray 09/22/16 1411 Signed Impressions: Service Date/Time: Thursday, September 22, 2016 14:22 - CONCLUSION: No acute disease. Mateusz Rangel MD Objective Remarks GENERAL: This is a well-nourished, well-developed patient, in no apparent distress. CARDIOVASCULAR: Regular rate and regular rhythm without murmurs, gallops, or rubs. RESPIRATORY: Clear to auscultation. Breath sounds equal bilaterally. No wheezes , rales, or rhonchi. GASTROINTESTINAL: Abdomen soft, non-tender, nondistended. Normal, active bowel sounds MUSCULOSKELETAL: Extremities without clubbing, cyanosis, or edema. NEURO: Alert & Oriented x4 to person, place, time, situation. Moves all ext x4 Procedures none Medications and IVs Current Medications Aspirin (Aspirin Chew) 324 mg ONCE ONCE PO Last administered on 09/22/16 14:28 ; Start 09/22/16 at 14:15; Stop 09/22/16 at 14:16; Status DC Sodium Chloride (NS Flush) 2 ml UNSCH PRN IVF FLUSH AFTER USING IV ACCESS Last administered on 09/23/16 22:53; Start 09/22/16 at 14:15 Morphine Sulfate 4 mg 4 mg ONCE ONCE IV PUSH Last administered on 09/22/16 17: 04; Start 09/22/16 at 16:45; Stop 09/22/16 at 16:46; Status DC Sodium Chloride (NS 1000 ml Inj) 1,000 ml @ 100 mls/hr Q10H IV Last administered on 09/24/16 02:49; Start 09/22/16 at 17:15 Amlodipine Besylate (Norvasc) 5 mg DAILY PO Last administered on 09/23/16 10:01 ; Start 09/23/16 at 09:00 Atorvastatin Calcium (Lipitor) 40 mg HS PO Last administered on 09/23/16 20:43 ; Start 09/22/16 at 21:00 Carvedilol (Coreg) 3.125 mg BID PO Last administered on 09/23/16 20:43; Start 09/22/16 at 21:00 Clopidogrel Bisulfate (Plavix) 75 mg DAILY PO Last administered on 09/23/16 10: 00; Start 09/23/16 at 09:00 Isosorbide Mononitrate (Imdur) 60 mg DAILY@07 PO Last administered on 09/24/16 06:43; Start 09/23/16 at 07:00 Lisinopril (Prinivil) 5 mg DAILY PO Last administered on 09/23/16 10:00; Start 09/23/16 at 09:00 Aspirin (Aspirin Chew) 81 mg DAILY PO Last administered on 09/23/16 10:01; Start 09/22/16 at 17:15 Morphine Sulfate (Morphine Inj) 2 mg Q4HR PRN IV PUSH PAIN 1-10 Last administered on 09/23/16 22:53; Start 09/22/16 at 17:15 Ondansetron HCl (Zofran Inj) 4 mg Q8HR PRN IV PUSH NAUSEA; Start 09/22/16 at 17: 15 Acetaminophen (Tylenol) 650 mg Q6H PRN PO HEADACHE Last administered on 16:36; Start 09/23/16 at 16:30 A/P Assessment and Plan A/P - chest pain with history of CAD- s/p stent placement ( last in April/2016) continue aspirin, plavix, lipitor, imdur, coreg and lisinopril cardiac enzymes negative. cardiology consult appreciated and recommended medical treatment. compliance with the medical treatment was d/w the patient. Discharge Planning dc home today. f/u ; pcp and cardiology. see med list. d/w the patient. Mary Horne MD September 24, 2016 09:15
[2016-09-24] MEDS ORDERED: AMLO5 PO (09:16)
--- NOTE | 2016-09-24 09:17 | HHI.DS ---
Discharge Summary Admission Date September 22, 2016 at 16:54 Discharge Date: September 24, 2016 Admitting Diagnosis Chest Pain (1) Chest pain ICD Code: R07.9 Diagnosis: Principal Procedures none Brief History - From Admission patient is a 41 y/o male with history of CAD- s/p stent placement in 2015 presented to ER with chest pain. he says that he's had on and off chest pain but this time it started two days ago. pain is midsternal, sharp with some radiation to the left chest wall. it was associated with some nausea, sob and diaphoresis. he says that he's taking all his medications but he ran out of his norvasc about a week ago. 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 CBC/BMP: 09/22/16 1357 09/22/16 1357 Significant Findings Laboratory Tests Test 09/22/16 09/22/16 09/23/16 13:57 20:59 03:29 Activated Partial 30.6 SEC Thromboplast Time (24.3-30.1) Blood Urea Nitrogen 5 MG/DL (7-18) Estimat Glomerular Filtration 85 ML/MIN (>89) Rate Troponin I LESS THAN 0.02 LESS THAN 0.02 LESS THAN 0.02 NG/ML NG/ML NG/ML (0.02-0.05) (0.02-0.05) (0.02-0.05) Imaging Last Impressions Chest X-Ray 09/22/16 1411 Signed Impressions: Service Date/Time: Thursday, September 22, 2016 14:22 - CONCLUSION: No acute disease. Mateusz Rangel MD PE at Discharge GENERAL: This is a well-nourished, well-developed patient, in no apparent distress. CARDIOVASCULAR: Regular rate and regular rhythm without murmurs, gallops, or rubs. RESPIRATORY: Clear to auscultation. Breath sounds equal bilaterally. No wheezes , rales, or rhonchi. GASTROINTESTINAL: Abdomen soft, non-tender, nondistended. Normal, active bowel sounds MUSCULOSKELETAL: Extremities without clubbing, cyanosis, or edema. NEURO: Alert & Oriented x4 to person, place, time, situation. Moves all ext x4 Hospital Course - chest pain with history of CAD- s/p stent placement ( last in April/2016) continue aspirin, plavix, lipitor, imdur, coreg and lisinopril cardiac enzymes negative. cardiology consult appreciated and recommended medical treatment. compliance with the medical treatment was d/w the patient. Pt Condition on Discharge: Good Discharge Disposition: Discharge Home Discharge Time: <= 30 minutes Discharge Instructions DIET: Follow Instructions for: Heart Healthy Diet Activities you can perform: Regular-No Restrictions Follow up Referrals: Cardiology PCP Follow-up Continued Medications: Amlodipine (Norvasc) 5 Mg Tab 5 MG PO DAILY htn/cp #30 Ref 1 TAB (This prescription has been renewed) Atorvastatin (Lipitor) 40 Mg Tab 40 MG PO HS cad #30 Ref 11 TAB Carvedilol (Coreg) 3.125 Mg Tab 3.125 MG PO BID #60 TAB Clopidogrel (Plavix) 75 Mg Tab 75 MG PO DAILY cad Days 30 Ref 11 TAB Isosorbide Mononitrate ER (Isosorbide Mononitrate ER) 60 Mg Tab 60 MG PO DAILY@07 cad #30 Ref 11 TAB Lisinopril (Lisinopril) 5 Mg Tab 5 MG PO DAILY cad #30 Ref 11 TAB Nitroglycerin SL (Nitroglycerin SL) 0.4 Mg Subl 0.4 MG SL DIRECTED ONE TABLET UNDER THE TONGUE NEEDED FOR CHEST PAIN, MAY REPEAT EVERY FIVE MINUTES FOR A TOTAL OF 3 DOSES OR CALL 911 IF NO RELIEF PRN CHEST PAIN #60 Ref 0 TAB.SL ([Aspirin Chew]) 81 MG CHEW 81 MG PO DAILY #30 TAB.Mary Cornell MD September 24, 2016 09:17
--- NOTE | 2016-09-24 09:17 | HHI.DCPOC ---
Discharge Care Plan Diagnosis: (1) CAD (coronary artery disease) Your Health Problems Are: Chest Pain Goals to Promote Your Health * To prevent worsening of your condition and complications * To maintain your health at the optimal level Directions to Meet Your Goals Take your medications as prescribed Follow your dietary instruction Follow activity as directed Keep your appointments as scheduled Take your immunizations and boosters as scheduled If your symptoms worsen call your PCP, if no PCP go to Urgent Care Center or Emergency Room Smoking is Dangerous to Your Health. Avoid second hand smoke Call the 24-hour hour crisis hotline for domestic abuse at Mary Horne MD September 24, 2016 09:17
[2016-09-24] MEDS: CLOPIDOGREL 75 MG TAB PO SCH (09:58)
[2016-09-24] MEDS: CARVEDILOL 3.125 MG TAB PO SCH (09:58)
[2016-09-24] MEDS: ASPIRIN 81 MG CHEW TAB PO SCH (09:58)
[2016-09-24] MEDS: LISINOPRIL 5 MG TAB PO SCH (09:59)
[2016-09-24] MEDS: amLODIPine BESYLATE 5 MG TAB PO SCH (10:00)
== END 2016-09-24 11:29 | disposition home or self-care (01) ==
LOC: NEPC 13:44 → NEDA 16:54 → NEPGCP 18:50
PROVIDERS: ADMIT Internal Medicine; ATTEND Internal Medicine
DX: R07.89 Other chest pain (principal); R06.02 Shortness of breath; I25.10 Atherosclerotic heart disease of native coronary artery without angina pectoris; I25.2 Old myocardial infarction; E78.5 Hyperlipidemia, unspecified; J45.909 Unspecified asthma, uncomplicated; F41.9 Anxiety disorder, unspecified; E78.00 Pure hypercholesterolemia, unspecified; I10 Essential (primary) hypertension; F17.210 Nicotine dependence, cigarettes, uncomplicated; Z79.02 Long term (current) use of antithrombotics/antiplatelets; Z79.82 Long term (current) use of aspirin; Z95.5 Presence of coronary angioplasty implant and graft; Z82.49 Family history of ischemic heart disease and other diseases of the circulatory system
CPT/HCPCS: 71020; 80048; 82550; 82552; 83735; 84484; 85025; 85610; 85730; 93005; 99285; G0378; J2270; J7030

== ENCOUNTER 2016-10-22 23:20 | Observation (INO) | payer OTHER ==
[~2016-10-22] VITALS: Ht 177.8 cm; Wt 80.0 kg
[2016-10-22 23:25] VITALS: BP 106/70; PULSE 61; RESP 17; TEMP 97.6; O2SAT 97
[2016-10-22] MEDS ORDERED: SODIUM CHLORIDE 0.9% FLUSH 10 ML FLUSH IVF PRN (23:45)
[2016-10-23] VITALS (16 sets, daily range): BP systolic 96–127; BP diastolic 57–74; PULSE 50–74; RESP 15–21; TEMP 97.6–98.3; O2SAT 98–100
--- NOTE | 2016-10-23 | PD ---
HPI Chief Complaint: Chest Pain Time Seen by Provider: 23:30 Travel History International Travel<30 days: No Contact w/Intl Traveler<30days: No Traveled to known affect area: No History of Present Illness HPI 41yo M with PMH of CAD s/p cardiac stent 04/2016 presents to the ED with c/o 2 episodes of syncope today. As per pt, he was sitting in the chair and felt warm and diaphoretic and then passed out. The son who witnessed it said he was shaking his arms and legs and lasted a few seconds. Said he was confused afterwards. Then 20 minutes later, it happened again so he called 911. Pt has never been evaluated for seizure or had diagnoses of seizure. States he started having chest pain after the episode but he gets chest pain often since 04/2016. Pain is midsternal, radiates up left neck. Associated with sob and nausea. Denies any fever, abdominal pain, focal weakness or numbness. Denies any trauma or fall from the chair. Pt does not have supervisor of communications. Last admitted for chest pain 09/22/16-09/24/16. PFSH Past Medical History Asthma: Yes Blood Disorders: No Anxiety: Yes Depression: Yes Heart Rhythm Problems: Yes ("palpitations, fluttering and racing") Cancer: No Cardiac Catheterization: Yes Cardiovascular Problems: Yes (stentsx4) High Cholesterol: Yes Chest Pain: Yes Congestive Heart Failure: No COPD: No Coronary Artery Disease: Yes Diminished Hearing: No Endocrine: No Genitourinary: No Hypertension: Yes Immune Disorder: No Implanted Vascular Access Dvce: Yes Musculoskeletal: Yes Neurologic: Yes (hydrocephalus) Psychiatric: Yes Reproductive: No Respiratory: No Migraines: Yes Myocardial Infarction: Yes Sleep Apnea: Yes Tetanus Vaccination: Unknown Past Surgical History Body Medical Devices: STENTS PLACED 04/2016 Cardiac Surgery: Yes Neurologic Surgery: Yes (shunt for hydrocephalus and removal) Other Surgery: Yes Social History Alcohol Use: No Tobacco Use: Yes Substance Use: No Allergies-Medications (Allergen,Severity, Reaction): Coded Allergies: No Known Allergies (Unverified , 10/22/16) Reported Meds & Prescriptions Reported Meds & Active Scripts Active Norvasc (Amlodipine Besylate) 5 Mg Tab 5 Mg PO DAILY Lisinopril 5 Mg Tab 5 Mg PO DAILY Isosorbide Mononitrate ER (Isosorbide Mononitrate) 60 Mg Tab 60 Mg PO DAILY@07 Lipitor (Atorvastatin Calcium) 40 Mg Tab 40 Mg PO HS Plavix (Clopidogrel Bisulfate) 75 Mg Tab 75 Mg PO DAILY 30 Days Nitroglycerin SL (Nitroglycerin) 0.4 Mg Subl 0.4 Mg SL DIRECTED PRN ONE TABLET UNDER THE TONGUE NEEDED FOR CHEST PAIN, MAY REPEAT EVERY FIVE MINUTES FOR A TOTAL OF 3 DOSES OR CALL 911 IF NO RELIEF [Aspirin Chew] 81 MG Chew 81 Mg PO DAILY Review of Systems Except as stated in HPI: all other systems reviewed are Neg Physical Exam Narrative GENERAL: 41yo M not in distress. SKIN: Focused skin assessment warm/dry. HEAD: Atraumatic. Normocephalic. EYES: Pupils equal and round. No scleral icterus. No injection or drainage. ENT: No nasal bleeding or discharge. Mucous membranes pink and moist. NECK: Trachea midline. No JVD. CARDIOVASCULAR: Regular rate and rhythm. No murmur appreciated. RESPIRATORY: No accessory muscle use. Clear to auscultation. Breath sounds equal bilaterally. GASTROINTESTINAL: Abdomen soft, non-tender, nondistended. MUSCULOSKELETAL: No obvious deformities. No clubbing. No cyanosis. No edema. NEUROLOGICAL: Awake and alert. No obvious cranial nerve deficits. Motor grossly within normal limits. Normal speech. PSYCHIATRIC: Appropriate mood and affect; insight and judgment normal. Data Data Last Documented VS Vital Signs Date Time Temp Pulse Resp B/P Pulse Ox O2 Delivery O2 Flow Rate FiO2 10/23/16 02:00 54 18 103/65 98 Nasal Cannula 2 10/22/16 23:25 97.6 Orders Basic Metabolic Panel (Bmp) (10/22/16 23:44) Ckmb (Isoenzyme) Profile (10/22/16 23:44) Complete Blood Count With Diff (10/22/16 23:44) Magnesium (Mg) (10/22/16 23:44) Prothrombin Time / Inr (Pt) (10/22/16 23:44) Act Partial Throm Time (Ptt) (10/22/16 23:44) Troponin I (10/22/16 23:44) Chest, Single Ap (10/22/16 23:44) Ecg Monitoring (10/22/16 23:44) Bilateral Bp Monitoring (10/22/16 23:44) Iv Access Insert/Monitor (10/22/16 23:44) Oximetry (10/22/16 23:44) Oxygen Administration (10/22/16 23:44) Sodium Chloride 0.9% Flush (Ns Flush) (10/22/16 23:45) Ct Brain W/O Iv Contrast(Rout) (10/22/16 ) Blood Glucose (10/22/16 23:44) Admit Order (Ed Use Only) (10/23/16 02:28) Alcohol (Ethanol) (10/22/16 23:40) Labs Laboratory Tests Test 10/22/16 23:40 White Blood Count 7.3 TH/MM3 Red Blood Count 3.86 MIL/MM3 Hemoglobin 12.6 GM/DL Hematocrit 36.5 % Mean Corpuscular Volume 94.4 FL Mean Corpuscular Hemoglobin 32.7 PG Mean Corpuscular Hemoglobin 34.6 % Concent Red Cell Distribution Width 13.7 % Platelet Count 234 TH/MM3 Mean Platelet Volume 8.3 FL Neutrophils (%) (Auto) 63.3 % Lymphocytes (%) (Auto) 27.7 % Monocytes (%) (Auto) 6.7 % Eosinophils (%) (Auto) 1.5 % Basophils (%) (Auto) 0.8 % Neutrophils # (Auto) 4.7 TH/MM3 Lymphocytes # (Auto) 2.0 TH/MM3 Monocytes # (Auto) 0.5 TH/MM3 Eosinophils # (Auto) 0.1 TH/MM3 Basophils # (Auto) 0.1 TH/MM3 CBC Comment DIFF FINAL Differential Comment Prothrombin Time 11.8 SEC Prothromb Time International 1.1 RATIO Ratio Activated Partial 26.3 SEC Thromboplast Time Sodium Level 139 MEQ/L Potassium Level 3.4 MEQ/L Chloride Level 106 MEQ/L Carbon Dioxide Level 25.6 MEQ/L Anion Gap 7 MEQ/L Blood Urea Nitrogen 17 MG/DL Creatinine 1.10 MG/DL Estimat Glomerular Filtration 73 ML/MIN Rate Random Glucose 159 MG/DL Calcium Level 8.3 MG/DL Magnesium Level 1.9 MG/DL Total Creatine Kinase 75 U/L Troponin I LESS THAN 0.02 NG/ML Ethyl Alcohol Level LESS THAN 3 MG/DL [facility] Medical Decision Making Medical Screen Exam Complete: Yes Emergency Medical Condition: Yes Interpretation(s) EKG: Sinus bradycardia at 56bpm. Normal axis. No ST segment elevation or depression. Q wave V1, V2. Differential Diagnosis Syncope vs. seizure vs. arrhythmia vs. ACS vs. valvular disease Narrative Course 41yo M with CAD here with c/o what sounds like 2 episodes of syncope. However, his son who witnessed the episodes described it in a way that it could have been seizures as well. Pt has no history of seizures. Labs reviewed, unremarkable. Negative troponin. CT brain negative. CXR negative. Will admit pt for syncope vs. seizure work up as well as serial EKG and cardiac enzymes for chest pain. Diagnosis Primary Impression: Syncope Qualified Code: R55 - Syncope, unspecified syncope type Additional Impression: Chest pain Qualified Code: R07.9 - Chest pain, unspecified type Admitting Information Admitting Physician Requests: it Thania Varner DO Oct 23, 2016 00:00
--- NOTE | 2016-10-23 00:03 | RADRPT ---
EXAM DATE/TIME: 10/22/2016 23:55 [facility] COMPARISON: CHEST SINGLE AP, August 16, 2016, 2:45. INDICATIONS : Chest pain. MEDICAL HISTORY : Congestive heart failure. SURGICAL HISTORY : Cardiac stent. ENCOUNTER: Initial ACUITY: 1 day PAIN SCORE: 5/10 LOCATION: Bilateral chest FINDINGS: A single view of the chest demonstrates the lungs to be symmetrically aerated without evidence of mas s, infiltrate or effusion. The cardiomediastinal contours are unremarkable. Osseous structures are intact. CONCLUSION: Normal examination. Vasquez Pinto MD on October 23, 2016 at 0:01 Board Certified Radiologist. This report was verified electronically.
[2016-10-23 00:16] LABS: AUTOMATED NEUTROPHIL # 4.7 TH/MM3 (1.8-7.7); BASOPHIL # 0.1 TH/MM3 (0-0.2); BASOPHIL % 0.8 % (0.0-2.0); EOSINOPHIL # 0.1 TH/MM3 (0-0.4); EOSINOPHIL % 1.5 % (0.0-4.0); HEMATOCRIT 36.5 % (39.0-51.0); HEMO FLAGS DIFF FINAL; LYMPH % 27.7 % (9.0-44.0); MEAN CELL VOLUME 94.4 FL (80.0-100.0); MEAN CORPUSCULAR HEMOGLOBIN 32.7 PG (27.0-34.0); MEAN CORPUSCULAR HGB CONC 34.6 % (32.0-36.0); MONO % 6.7 % (0.0-8.0); NEUT % 63.3 % (16.0-70.0); PLATELET COUNT 234 TH/MM3 (150-450); RED BLOOD COUNT 3.86 MIL/MM3 (4.50-5.90); RED CELL DISTRIBUTION WIDTH 13.7 % (11.6-17.2); WHITE BLOOD COUNT 7.3 TH/MM3 (4.0-11.0)
[2016-10-23 00:28] LABS: APTT (PATIENT) 26.3 SEC (24.3-30.1); INTERNATIONAL NORMALIZED RATIO 1.1 RATIO; PROTHROMBIN TIME - PATIENT 11.8 SEC (9.8-11.6)
[2016-10-23 00:38] LABS: ANION GAP 7 MEQ/L (5-15); BICARBONATE 25.6 MEQ/L (21.0-32.0); BLOOD UREA NITROGEN 17 MG/DL (7-18); CHLORIDE 106 MEQ/L (98-107); GLOMERULAR FILTRATION RATE 73 ML/MIN (>89); MAGNESIUM 1.9 MG/DL (1.5-2.5); POTASSIUM 3.4 MEQ/L (3.5-5.1); SODIUM (NA) 139 MEQ/L (136-145)
[2016-10-23 00:44] LABS: CREATINE KINASE 75 U/L (39-308)
--- NOTE | 2016-10-23 01:42 | RADRPT ---
EXAM DATE/TIME: 10/23/2016 01:33 [facility] COMPARISON: No previous studies available for comparison. INDICATIONS : Syncope RADIATION DOSE: 56.35 CTDIvol (mGy) MEDICAL HISTORY : Cardiovascular disease. Hypertension. SURGICAL HISTORY : Cardiac stents ENCOUNTER: Initial ACUITY: 1 day PAIN SCALE: 0/10 LOCATION: cranial TECHNIQUE: Multiple contiguous axial images were obtained of the head. Using automated exposure control and adj ustment of the mA and/or kV according to patient size, radiation dose was kept as low as reasonably a chievable to obtain optimal diagnostic quality images. FINDINGS: CEREBRUM: The ventricles are normal for age. No evidence of midline shift, mass lesion, hemorrhage or acute in farction. No extra-axial fluid collections are seen. POSTERIOR FOSSA: The cerebellum and brainstem are intact. The 4th ventricle is midline. The cerebellopontine angle i s unremarkable. EXTRACRANIAL: The visualized portion of the orbits is intact. SKULL: The calvaria is intact. No evidence of skull fracture. Bilateral craniotomy defects posteriorly CONCLUSION: Unremarkable study. No evidence of hemorrhage or edema Vasquez Pinto MD on October 23, 2016 at 1:40 Board Certified Radiologist. This report was verified electronically.
[2016-10-23] MEDS ORDERED: SODIUM CHLORIDE 0.9% FLUSH 10 ML FLUSH IV FLUSH PRN (03:15)
--- NOTE | 2016-10-23 06:27 | HHI.HP ---
HPI Service [facility] Primary Care Physician Wojciech Gaston Admission Diagnosis Syncope vs. seizure Diagnoses: Travel History International Travel<30 Days: No Contact w/Intl Traveler <30 Da: No Traveled to Known Affected Are: No History of Present Illness 41 years old male with history of coronary artery disease status post cardiac stenting in 2015 isn't with complaining of 2 episodes of syncope today. Patient stated he he was sitting when he had episode no prior symptoms of palpitation chest and lightheaded or dizziness. His son who was a witness stated that a shunt passed out for 5 seconds, when he came back to consciousness he was diaphoretic patient reported chest pain midsternal pressure -like radiated up to his neck. Positive nausea and short of breath. 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 EKG showed sinus bradycardia with Q-wave in V1 and V2 Review of Systems Except as stated in HPI: all other systems reviewed are Neg All systems reviewed and was positive for what is mentioned in history of present illness otherwise negative Past Family Social History Past Medical History CAD hydrocephalus cardiac stent placement brain surgery Past Surgical History As above Allergies: Coded Allergies: No Known Allergies (Unverified , 10/22/16) Family History r heart disease in grandmother. Social History Stated he smokes occasionally but no illicit drug or alcohol abuse Physical Exam Vital Signs Vital Signs Date Time Temp Pulse Resp B/P Pulse Ox O2 Delivery O2 Flow Rate FiO2 10/23/16 05:29 57 10/23/16 05:24 97.6 50 18 99/61 100 10/23/16 04:00 50 16 99/62 100 Nasal Cannula 2 10/23/16 03:26 98 Nasal Cannula 2.00 10/23/16 02:00 54 18 103/65 98 Nasal Cannula 2 10/23/16 01:00 52 17 104/57 100 Nasal Cannula 2 10/23/16 00:06 100 Nasal Cannula 3 10/23/16 00:00 52 15 96/64 100 Nasal Cannula 2 10/22/16 23:29 96 Nasal Cannula 3 10/22/16 23:25 97.6 61 17 106/70 97 Physical Exam GENERAL: This is a well-nourished, well-developed patient, in no apparent distress. SKIN: No rashes, warm and dry HEAD: Atraumatic. Normocephalic. EYES: Pupils equal round and reactive. Extraocular motions intact. No scleral icterus. ENT: Nose without bleeding, or drainage, Airway patent. NECK: Trachea midline. Supple CARDIOVASCULAR: Regular rate and rhythm without murmurs, gallops, or rubs. RESPIRATORY: Fair air entry bilaterally. No wheezes, rales, or rhonchi. GASTROINTESTINAL: Abdomen soft, non-tender, nondistended. Positive bowel sounds MUSCULOSKELETAL: Extremities without clubbing, cyanosis, or edema. Pedal pulses appreciated NEUROLOGICAL: Awake and alert. Cranial nerves II through XII intact. Motor and sensory grossly within normal limits. Five out of 5 muscle strength in all muscle groups. Normal speech. Laboratory Laboratory Tests Test 10/22/16 10/23/16 23:40 05:14 White Blood Count 7.3 Red Blood Count 3.86 Hemoglobin 12.6 Hematocrit 36.5 Mean Corpuscular Volume 94.4 Mean Corpuscular Hemoglobin 32.7 Mean Corpuscular Hemoglobin 34.6 Concent Red Cell Distribution Width 13.7 Platelet Count 234 Mean Platelet Volume 8.3 Neutrophils (%) (Auto) 63.3 Lymphocytes (%) (Auto) 27.7 Monocytes (%) (Auto) 6.7 Eosinophils (%) (Auto) 1.5 Basophils (%) (Auto) 0.8 Neutrophils # (Auto) 4.7 Lymphocytes # (Auto) 2.0 Monocytes # (Auto) 0.5 Eosinophils # (Auto) 0.1 Basophils # (Auto) 0.1 CBC Comment DIFF FINAL Differential Comment Prothrombin Time 11.8 Prothromb Time International 1.1 Ratio Activated Partial 26.3 Thromboplast Time Sodium Level 139 Potassium Level 3.4 Chloride Level 106 Carbon Dioxide Level 25.6 Anion Gap 7 Blood Urea Nitrogen 17 Creatinine 1.10 Estimat Glomerular Filtration 73 Rate Random Glucose 159 Calcium Level 8.3 Magnesium Level 1.9 Total Creatine Kinase 75 Troponin I LESS THAN 0.02 LESS THAN 0.02 Ethyl Alcohol Level LESS THAN 3 Result Diagram: 10/22/16 2340 10/22/16 234 Imaging Last Impressions Chest X-Ray 10/22/162343 Signed Impressions: Service Date/Time: Saturday, October 22, 2016 23:55 - CONCLUSION: Normal examination. Vasquez Pinto MD Head CT 10/22/16 0000 Signed Impressions: Service Date/Time: Sunday, October 23, 2016 01:33 - CONCLUSION: Unremarkable study. No evidence of hemorrhage or edema Vasquez Pinto MD Assessment and Plan Assessment and Plan 41 years old male with history of coronary artery disease status post CABG and 8 stenting came with: -Syncopal episodes, accompanied by upper or lower extremity tremor aspect the son witnessed rule out seizure versus vasovagal or other etiology of syncope Will do full neurological and cardio workup including carotid ultrasound, 2- D echo, Holter monitor, EEG Follow cardiac enzyme, occasion reviewed by me showed sinus bradycardia with Q-wave in V1 and V2 -Bradycardia with hypotension: Monitor on telemetry hold on antihypertensive medication, including beta jessica -DVT prophylaxis with SCD and heparin - Discussed Condition With Patient ED physician Ceasar John MD Oct 23, 2016 06:27
[2016-10-23 08:13] LABS: AMPHETAMINE, URINE NEG (NEG); BARBITURATES, URINE NEG (NEG); COCAINE, URINE NEG (NEG)
[2016-10-23] MEDS: CLOPIDOGREL 75 MG TAB PO SCH (08:42)
[2016-10-23] MEDS: SODIUM CHLORIDE 0.9% FLUSH 10 ML FLUSH IV FLUSH SCH ×2 (08:43→20:05)
[2016-10-23] MEDS: ASPIRIN 81 MG CHEW TAB PO SCH (08:43)
[2016-10-23 10:48] LABS: HDL CHOLESTEROL 33.3 MG/DL (40.0-60.0); LDL CHOLESTEROL 85 MG/DL (0-99)
[2016-10-23] MEDS ORDERED: NITROGLYCERIN 0.3 MG SL 100 TABS/BTL SL ONE (11:30)
--- NOTE | 2016-10-23 11:36 | HHI.PR ---
Subjective Remarks Follow-up for syncope. The patient states he was sitting at home and suddenly felt lightheaded like he was going to pass out, felt hot, nose and suddenly syncopized. His son who is at bedside witnessed the episode. He states that the patient lost consciousness for about 5 seconds and then was confused for about 1 minute before he became back to his baseline mental state. The patient' s son states that the patient's arms and legs were shaking whenever he passed out. The patient has been having chronic intermittent chest pain for the past several months, and continues to do so today. He states he's has been taking amlodipine for angina for about a month and a half. He states that initially he was not taking Imdur, and his dose was increased to 60 mg having not taken 30 mg. He missed his initial appointment with his PCP due to transportation issues. He has not been able to afford the co-pay to see a wet mix operator. The patient denies any alcohol or substance use. Objective Vitals Vital Signs Date Time Temp Pulse Resp B/P Pulse Ox O2 Delivery O2 Flow Rate FiO2 10/23/16 10:42 60 114/72 10/23/16 08:03 57 10/23/16 07:43 98 Nasal Cannula 21 10/23/16 07:41 97.7 59 18 104/66 98 109/73 117/72 10/23/16 05:29 57 10/23/16 05:24 97.6 50 18 99/61 100 10/23/16 04:00 50 16 99/62 100 Nasal Cannula 2 10/23/16 03:26 98 Nasal Cannula 2.00 10/23/16 02:00 54 18 103/65 98 Nasal Cannula 2 10/23/16 01:00 52 17 104/57 100 Nasal Cannula 2 10/23/16 00:06 100 Nasal Cannula 3 10/23/16 00:00 52 15 96/64 100 Nasal Cannula 2 10/22/16 23:29 96 Nasal Cannula 3 10/22/16 23:25 97.6 61 17 106/70 97 Result Diagram: 10/22/16233910/22/16 234 Imaging Last Impressions Chest X-Ray 10/22/164 Signed Impressions: Service Date/Time: Saturday, October 22, 2016 23:55 - CONCLUSION: Normal examination. Vasquez Pinto MD Head CT 10/22/16 0000 Signed Impressions: Service Date/Time: Sunday, October 23, 2016 01:33 - CONCLUSION: Unremarkable study. No evidence of hemorrhage or edema Vasquez Pinto MD Objective Remarks GENERAL: Well-developed well-nourished. In no acute distress. SKIN: Warm and dry. No lesions noted. HEENT: Normocephalic. Pupils equal and round and reactive to light. Mucous membranes pink and moist. CARDIOVASCULAR: Regular rate and rhythm. No murmur appreciated. RESPIRATORY: No accessory muscle use. Clear to auscultation. Breath sounds equal bilaterally. GASTROINTESTINAL: Abdomen soft, non-tender, nondistended. Bowel sounds x4. MUSCULOSKELETAL: No obvious deformities. No clubbing or cyanosis. No edema. NEUROLOGICAL: Awake and alert. No focal neurological deficits. Moves upper and lower extremities spontaneously. Normal speech. Strength 5/5. No facial asymmetry. PSYCHIATRIC: Appropriate mood and affect; insight and judgment normal. A/P Assessment and Plan 41-year-old male with past medical history of CAD and recent stenting who presented with syncopal episode 2 prior to admission Syncopal episodes: The patient was mildly hypotensive and bradycardic in the ED ; episodes are possibly secondary to arrhythmia vs medication effect related. Patient's son reports shaking of the extremities as well, rule out seizures. Reviewed: Head CT unremarkable. Echocardiogram 07/31/16 with normal systolic function, EF 5560 %, and grade 1 diastolic dysfunction. Non-orthostatic. Troponin negative 3. EKG with sinus bradycardia rate 56, Q waves in V1 and 2, similar to previous. -Holding home BP meds for now -Limited echocardiogram -Consult cardiology and neurology -EEG -Holter monitor and telemetry -Carotid ultrasound Chest pain, with history of CAD and recent stenting: Patient with recurrent admissions for angina like symptoms. Multiple medication adjustments cardiology while inpatient. Poorly compliant/difficulties with outpatient follow-up. Rule out ACS as above. -Continue aspirin, Plavix, statin. -Holding BP meds as above. -Conservative nitroglycerin use as needed due to BP Hyperglycemia: Random glucose 159. No history of diabetes. Diabetic diet. Hemoglobin A1c pending. Cannabis use: Patient denies any substance use, however UDS is positive for cannabinoids. Patient counseling. DVT prophylaxis: Mark Negrete Oct 23, 2016 11:36
--- NOTE | 2016-10-23 12:20 | RADRPT ---
EXAM DATE/TIME: 10/23/2016 11:23 [facility] COMPARISON: No previous studies available for comparison. INDICATIONS : Syncope. MEDICAL HISTORY : Hypertension. Hypercholesterolemia. Myocardial infarction. Coronary artery disease. Asthma. Hydroce phalus. CAD. SURGICAL HISTORY : Shunt for hydrocephalus and removal. Cardiac stents. ENCOUNTER: Initial ACUITY: 1 day PAIN SCORE: 10 LOCATION: Bilateral neck PEAK SYSTOLIC VELOCITIES (cm/sec): ICA/CCA RATIO: Right: 0.6 Left: 0.8 ICA: Right: 75 Left: 80 CCA: Right: 119 Left: 97 ECA: Right: 119 Left: 79 VERTEBRAL: Right: 51 antegrade Left: 58 antegrade Elevated flow velocities and ICA/CCA ratios have been found to correlate with increased degrees of vessel stenosis, calculated as percentage of diameter relative to a normal segment of distal ICA/CCA FINDINGS: RIGHT CAROTID: Minimal atherosclerotic plaque. No significant stenosis is visualized. The waveforms are within norm al limits. LEFT CAROTID: Minimal atherosclerotic plaque. No significant stenosis is visualized. The waveforms are within norm al limits. VERTEBRAL ARTERIES: Antegrade flow is seen in both vertebral arteries. MISCELLANEOUS: None. CONCLUSION: 1. Patent carotid arteries bilaterally. 2. Antegrade flow involving both vertebral arteries. Adam Gonsales Jr., MD on October 23, 2016 at 12:15 Board Certified Radiologist. This report was verified electronically.
[2016-10-23] MEDS ORDERED: NITROGLYCERIN 0.3 MG SL 100 TABS/BTL SL PRN (15:30)
[2016-10-23] MEDS ORDERED: ACETAMINOPHEN 325 MG TAB PO ONE (15:45)
--- NOTE | 2016-10-23 16:24 | MB ---
cc: DEE DEE KINGSLEY DATE OF CONSULTATION: 10/23/2016 HISTORY OF PRESENT ILLNESS A 41-year-old white male with history of coronary artery disease and coronary stenting. He was seen in the emergency room after two episodes of syncope. He had developed dizziness and lightheadedness and passed out for several seconds. This happened on two occasions. He had no preceding chest pain, shortness of breath or palpitations. His last cardiac catheterization in July of this year showed 30% stenosis of the left anterior descending artery, total occlusion of secondary branch of the first obtuse marginal artery with 80% proximal stenosis at the proximal stent margin and mild irregularities of the right coronary artery. The patient underwent placement of the Integrity stent to the first marginal artery bifurcation. Echocardiogram at that time showed well-preserved left ventricular function with an ejection fraction of 55-60% with no segmental wall motion abnormalities. PAST MEDICAL HISTORY Positive for: 1. Coronary artery disease as above. 2. Coronary stenting. 3. Brain surgery. 4. Hydrocephalus. MEDICATIONS Medications include: 1. Atorvastatin 40 mg a day. 2. Baby aspirin. 3. Plavix. ALLERGIES None. SOCIAL HISTORY The patient continues to smoke. He does not drink alcohol. FAMILY HISTORY Positive for heart disease in his grandmother. REVIEW OF SYSTEMS Otherwise negative. PHYSICAL EXAMINATION VITAL SIGNS: Blood pressure 127/66, pulse 74 and regular. HEENT: Negative. NECK: 2+ carotid upstrokes. No bruits. LUNGS: Clear. HEART: Regular with no murmur, gallop, rub. ABDOMEN: Soft. No bruits. EXTREMITIES: Without edema. 2+ distal pulses. NEURO EXAM: Grossly nonfocal. EKG EKG was reviewed and showed mild sinus bradycardia at 56 beats per minute with normal axis and intervals and no acute changes. LABORATORY DATA Hemoglobin 12.6, potassium 3.4, creatinine 1.1, troponin negative x3, LDL 85, HDL 33. DIAGNOSIS 1. Syncope. 2. Coronary artery disease, history of coronary stenting. 3. Preserved left ventricular systolic function. 4. Hydrocephalus. 5. Smoking. DISPOSITION Mr. Hays will be monitored on telemetry. We will obtain echocardiogram to evaluate his left ventricular function. We will also obtain carotid ultrasound. He is undergoing neurologic evaluation. I will follow him for cardiology during his hospitalization. We will continue antiplatelet therapy with Plavix and aspirin but hold his other medications due to his borderline hypotension. MD MICHELE Lipscomb /3:38 PM 3:49 PM [facility]
--- NOTE | 2016-10-23 16:32 | EKG ---
Date Performed: 10/22/2016 Time Performed: 23:26:04 PTAGE: 41 years EKG: SINUS BRADYCARDIA INDETERMINATE AXIS MODERATE INTRAVENTRICULAR CONDUCTION DELAY BORDERLINE ECG PREVIOUS TRACING : 09/22/2016 13.47 Compared to the previous tracing, rates has decreased DOCTOR: Ankur Durham Interpretating Date/Time 10/23/2016 16:31:58
--- NOTE | 2016-10-23 16:54 | MG ---
cc: ADALGISA GUTIERREZ Lab No: Date: 10/23/2016 Age: Sex: M Race: TEST NUMBER [id number] TECHNIQUE A 17 channel EEG. DESCRIPTION The background rhythm reveals symmetrical alpha rhythm. Frequency 8-9 Hz. Amplitude 20-30 microvolts. There is the expected anterior decrement to the response. No lateralizing features are identified. No epileptiform features are identified. Hyperventilation was not performed. During drowsiness there is slowing in the theta range. Photic stimulation is done in a stepwise fashion with a normal driving response. INTERPRETATION Normal EEG. MD JUN Moore/BRITTANIE /4:32 PM /4:44 PM
[2016-10-23 17:17] LABS: HEMOGLOBIN A1a 1.2 %; HEMOGLOBIN A1b 1.8 %; HEMOGLOBIN Ao 84.7 %; HEMOGLOBIN LA1C 2.3 %; HEMOGLOBIN P3 3.8 %
[2016-10-23] MEDS ORDERED: ATORVASTATIN 40 MG TAB PO SCH (21:00)
[2016-10-24 00:35] VITALS: BP_SYST 124; BP_SYST 126; BP_DIAS 80; BP_DIAS 88; PULSE 57; RESP 22; TEMP 98; O2SAT 100
[2016-10-24] MEDS: ACETAMINOPHEN 325 MG TAB PO PRN ×2 (00:42→09:31)
[2016-10-24 04:01] VITALS: BP 121/60; PULSE 50; RESP 18; TEMP 98.4; O2SAT 100
[2016-10-24 05:14] LABS: AUTOMATED NEUTROPHIL # 3.2 TH/MM3 (1.8-7.7); BASOPHIL # 0.1 TH/MM3 (0-0.2); BASOPHIL % 1.8 % (0.0-2.0); EOSINOPHIL # 0.3 TH/MM3 (0-0.4); EOSINOPHIL % 3.5 % (0.0-4.0); HEMO FLAGS DIFF FINAL; LYMPH % 46.8 % (9.0-44.0); LYMPHOCYTE # 3.8 TH/MM3 (1.0-4.8); MEAN CELL VOLUME 94.8 FL (80.0-100.0); MEAN CORPUSCULAR HEMOGLOBIN 31.7 PG (27.0-34.0); MEAN CORPUSCULAR HGB CONC 33.4 % (32.0-36.0); MONO % 8.2 % (0.0-8.0); NEUT % 39.7 % (16.0-70.0); PLATELET COUNT 220 TH/MM3 (150-450); RED BLOOD COUNT 4.11 MIL/MM3 (4.50-5.90); RED CELL DISTRIBUTION WIDTH 13.7 % (11.6-17.2); WHITE BLOOD COUNT 8.1 TH/MM3 (4.0-11.0)
[2016-10-24 05:38] LABS: BICARBONATE 26.8 MEQ/L (21.0-32.0); POTASSIUM 3.8 MEQ/L (3.5-5.1)
[2016-10-24 08:03] VITALS: BP_SYST 121; BP_SYST 127; BP_DIAS 66; BP_DIAS 79; PULSE 53; RESP 18; TEMP 97.7; O2SAT 99
[2016-10-24 08:36] VITALS: O2SAT 99
--- NOTE | 2016-10-24 09:02 | HHI.PR ---
Subjective Remarks Follow-up for syncope. The patient overall feels better today. He states he's been ambulating with no lightheadedness or dizziness. His blood pressure has improved. He states that he thought he would feel much worse being off of his blood pressure medications. He continues to have intermittent episodes of chest discomfort the last 15 or 20 minutes. He states the pain is reproducible to palpation. He did previously work during [employer]ela work. The patient reports no improvement in chest wall pain with ibuprofen in the past. He is hoping to go home soon. Objective Vitals Vital Signs Date Time Temp Pulse Resp B/P Pulse Ox O2 Delivery O2 Flow Rate FiO2 10/24/16 08:03 97.7 53 18 121/79 99 127/66 10/24/16 04:01 98.4 50 18 121/60 100 10/24/16 01:46 16 10/24/16 00:35 98.0 57 22 124/88 100 126/80 10/23/16 21:36 60 10/23/16 20:52 98.0 60 21 122/74 99 10/23/16 19:57 98 21 10/23/16 17:24 18 10/23/16 15:10 98.3 74 19 127/66 98 10/23/16 12:01 98.2 70 18 108/58 98 10/23/16 10:42 60 114/72 I/O 10/23/16 10/23/16 10/23/16 10/24/16 10/24/16 10/24/16 07:00 15:00 23:00 07:00 15:00 23:00 Output Total 4 ml Balance -4 ml Output Urine Total 4 ml # Voids 2 Result Diagram: 10/24/16 0426 10/24/16 0426 Imaging Last Impressions Carotid Artery Ultrasound 10/23/16 0000 Signed Impressions: Service Date/Time: Sunday, October 23, 2016 11:23 - CONCLUSION: 1. Patent carotid arteries bilaterally. 2. Antegrade flow involving both vertebral arteries. Adam Gonsales Jr., MD Chest X-Ray 10/22/16 8084 Signed Impressions: Service Date/Time: Saturday, October 22, 2016 23:55 - CONCLUSION: Normal examination. Vasquez Pinto MD Head CT 10/22/16 0000 Signed Impressions: Service Date/Time: Sunday, October 23, 2016 01:33 - CONCLUSION: Unremarkable study. No evidence of hemorrhage or edema Vasquez Pinto MD Objective Remarks GENERAL: Well-developed well-nourished. In no acute distress. SKIN: Warm and dry. No lesions noted. HEENT: Normocephalic. Pupils equal and round. Mucous membranes pink and moist. CARDIOVASCULAR: Regular rate and rhythm. No murmur appreciated. Chest wall TTP at the lower left sternal border. RESPIRATORY: No accessory muscle use. Clear to auscultation. Breath sounds equal bilaterally. GASTROINTESTINAL: Abdomen soft, non-tender, nondistended. Bowel sounds x4. MUSCULOSKELETAL: No obvious deformities. No clubbing or cyanosis. No edema. NEUROLOGICAL: Awake and alert. No focal neurological deficits. Moves upper and lower extremities spontaneously. Normal speech. PSYCHIATRIC: Appropriate mood and affect; insight and judgment normal. A/P Assessment and Plan 41-year-old male with past medical history of CAD and recent stenting who presented with syncopal episode 2 prior to admission Syncopal episodes: The patient was mildly hypotensive and bradycardic in the ED ; episodes are possibly secondary to arrhythmia vs medication effect related. Patient's son reports shaking of the extremities as well, rule out seizures. Reviewed: Head CT unremarkable. Echocardiogram 07/31/16 with normal systolic function, EF 5560 %, and grade 1 diastolic dysfunction. Non-orthostatic. Troponin negative 3. EKG with sinus bradycardia rate 56, Q waves in V1 and 2, similar to previous. Carotid ultrasound with patent carotid arteries bilaterally. EEG normal. Telemetry monitoring showed bradycardia while sleeping, however no other significant arrhythmias. -Holding home BP meds for now -Limited echocardiogram -Consulted cardiology and neurology, appreciate input -Holter monitor and telemetry Chest pain, with history of CAD and recent stenting: Patient with recurrent admissions for angina like symptoms. Multiple medication adjustments cardiology while inpatient. Poorly compliant/difficulties with outpatient follow-up. Rule out ACS as above. The patient does have chest wall pain as well. -Continue aspirin, Plavix, statin. -Holding BP meds as above. -Nitroglycerin as needed Hyperglycemia: Random glucose 159, however fasting glucose 90 and hemoglobin A1c 5.9. Not diabetic. Cannabis use: Patient denies any substance use, however UDS is positive for cannabinoids. Patient counseling. DVT prophylaxis: SCDs Discharge Planning Monitor BP, follow-up results of echocardiogram, follow-up specialists input. Possible discharge planning for later today if workup remains unremarkable and patient remains stable. 1230 echocardiogram unremarkable. Discussed with cardiology, clear for discharge. Neurology recommended EEG which was unremarkable as above. Discussed plan of care with the patient who would like to continue on amlodipine and follow up with his PCP. Discharge home today. Mark Crisostomo Oct 24, 2016 09:02
[2016-10-24] MEDS: ASPIRIN 81 MG CHEW TAB PO SCH (09:30)
[2016-10-24] MEDS: SODIUM CHLORIDE 0.9% FLUSH 10 ML FLUSH IV FLUSH SCH (09:30)
[2016-10-24] MEDS: CLOPIDOGREL 75 MG TAB PO SCH (09:30)
--- NOTE | 2016-10-24 10:02 | MB ---
cc: ADALGISA GUTIERREZ M.D. DATE OF CONSULTATION 10/23/2016 REASON FOR CONSULTATION Mr. Hays is a 41 year-old man who yesterday had two episode of loss of conscious. He states he was sitting down, his son weakness these, he suddenly lost consciousness. He began to have tremulousness of the upper extremities became very pale and diaphoretic. He was out for about 20 seconds and then regained consciousness. He was slightly confused. There was no bladder incontinence. No tongue biting. About 20 minutes later, he had a similar episode. Denied chest pain or palpitations. He had an episode about a year ago as well. PAST MEDICAL HISTORY Remarkable for: 1. Coronary artery disease 2. Cardiac stenting in April 3. Hydrocephalus 4. Hyperlipidemia 5. CVA 6. Surgery for hydrocephalus as a child MEDICATIONS Include: 1. Lipitor 2. Tylenol 3. Nitrostat 4. Plavix 5. Aspirin NEUROLOGIC EXAMINATION He is alert, oriented x3. Speech is normal. Cranial nerves intact. Motor exam, no focal deficits. Reflexes symmetric. CT of the brain is unremarkable. Carotid ultrasound is normal. LABORATORY DATA White count 7300, hemoglobin 12.6, hematocrit 36%, platelets 234,000. Sodium 139, potassium 3.4, chloride 106, CO2 25.6, the BUN is 17, creatinine 1.1, GFR 73, glucose 159, triglycerides 120, cholesterol 142, LDL 85, PT 11.8, INR 1.1, APTT 26.3. Tox screen positive for cannabis otherwise negative. IMPRESSION Syncope. The history is somewhat atypical for seizure with no definite tonic-clonic activity. No postictal state. His son relates that he will get these episodes at times if he misses a meal, therefore hypoglycemia would be in the differential. Rule out cardiogenic syncope as well. RECOMMENDATIONS I would like to obtain an EEG to be sure there is no seizure focus. I would also check a fasting glucose. MD JUN Moore/ALONZO /8:55 PM /9:48 AM
--- NOTE | 2016-10-24 10:34 | PD.CARD.PN ---
Subjective Subjective Remarks Left parasternal atypical chest discomfort reproducible with chest palpation, no SOB or dizziness, mild RICHARDS; ambulated without difficulties Objective Medications Current Medications Medications (Trade) Dose Ordered Sig/Frantz Route Start Time Stop Time Status Last Admin (NS Flush) 2 ml UNSCH PRN IV FLUSH 10/23/16 03:15 (NS Flush) 2 ml BID IV FLUSH 10/23/16 09:00 10/24/16 09:30 (Lipitor) 40 mg HS PO 10/23/16 21:00 10/23/16 20:05 (Plavix) 75 mg DAILY PO 10/23/16 09:00 10/24/16 09:30 (Aspirin Chew) 81 mg DAILY PO 10/23/16 09:00 10/24/16 09:30 (Nitrostat Sl) 0.3 mg Q5M PRN SL 10/23/16 15:30 (Tylenol) 650 mg Q4H PRN PO 10/23/16 15:30 10/24/16 09:31 Vital Signs / I&O Vital Signs Date Time Temp Pulse Resp B/P Pulse Ox O2 Delivery O2 Flow Rate FiO2 10/24/16 08:36 99 10/24/16 08:03 97.7 53 18 121/79 99 127/66 10/24/16 04:01 98.4 50 18 121/60 100 10/24/16 01:46 16 10/24/16 00:35 98.0 57 22 124/88 100 126/80 10/23/16 21:36 60 10/23/16 20:52 98.0 60 21 122/74 99 10/23/16 19:57 98 21 10/23/16 17:24 18 10/23/16 15:10 98.3 74 19 127/66 98 10/23/16 12:01 98.2 70 18 108/58 98 10/23/16 10:42 60 114/72 I/O 10/23/16 10/23/16 10/23/16 10/24/16 10/24/16 10/24/16 07:00 15:00 23:00 07:00 15:00 23:00 Output Total 4 ml Balance -4 ml Output Urine Total 4 ml # Voids 2 Physical Exam GENERAL: In NAD SKIN: Warm and dry. HEAD: Normocephalic. EYES: No scleral icterus. No injection or drainage. NECK: Supple, trachea midline. No JVD or lymphadenopathy. CARDIOVASCULAR: Regular rate and rhythm without murmurs, gallops, or rubs. RESPIRATORY: Breath sounds equal bilaterally. No accessory muscle use. GASTROINTESTINAL: Abdomen soft, non-tender, nondistended. MUSCULOSKELETAL: No cyanosis, or edema. Laboratory Laboratory Tests Test 10/24/16 04:26 White Blood Count 8.1 TH/MM3 Red Blood Count 4.11 MIL/MM3 Hemoglobin 13.0 GM/DL Hematocrit 39.0 % Mean Corpuscular Volume 94.8 FL Mean Corpuscular Hemoglobin 31.7 PG Mean Corpuscular Hemoglobin 33.4 % Concent Red Cell Distribution Width 13.7 % Platelet Count 220 TH/MM3 Mean Platelet Volume 8.4 FL Neutrophils (%) (Auto) 39.7 % Lymphocytes (%) (Auto) 46.8 % Monocytes (%) (Auto) 8.2 % Eosinophils (%) (Auto) 3.5 % Basophils (%) (Auto) 1.8 % Neutrophils # (Auto) 3.2 TH/MM3 Lymphocytes # (Auto) 3.8 TH/MM3 Monocytes # (Auto) 0.7 TH/MM3 Eosinophils # (Auto) 0.3 TH/MM3 Basophils # (Auto) 0.1 TH/MM3 CBC Comment DIFF FINAL Differential Comment Sodium Level 139 MEQ/L Potassium Level 3.8 MEQ/L Chloride Level 104 MEQ/L Carbon Dioxide Level 26.8 MEQ/L Anion Gap 8 MEQ/L Blood Urea Nitrogen 14 MG/DL Creatinine 0.85 MG/DL Estimat Glomerular Filtration 99 ML/MIN Rate Random Glucose 90 MG/DL Calcium Level 8.7 MG/DL Imaging Last Impressions Carotid Artery Ultrasound 10/23/16 0000 Signed Impressions: Service Date/Time: Sunday, October 23, 2016 11:23 - CONCLUSION: 1. Patent carotid arteries bilaterally. 2. Antegrade flow involving both vertebral arteries. Adam Gonsales Jr., MD Chest X-Ray 10/22/16 0576 Signed Impressions: Service Date/Time: Saturday, October 22, 2016 23:55 - CONCLUSION: Normal examination. Vasquez Pinto MD Head CT 10/22/16 0000 Signed Impressions: Service Date/Time: Sunday, October 23, 2016 01:33 - CONCLUSION: Unremarkable study. No evidence of hemorrhage or edema Vasquez Pinto MD Assessment and Plan Problem List: (1) Syncope (2) CAD (coronary artery disease) (3) Chest pain, atypical (4) Smoking Assessment and Plan CP atypical, likely of musculoskeletal origin. Continue current program for CAD. Check echo. Continue monitoring. Neurology evaluation in progress. Increase activity. Problem Qualifiers (1) Syncope: Qualified Code: R55 - Syncope, unspecified syncope type Jl Donahue MD Oct 24, 2016 10:34
--- NOTE | 2016-10-24 11:16 | ECHRPT ---
Indication: EF ASSESSMENT CONCLUSIONS The transthoracic study is normal by two-dimensional, color flow imaging and Doppler interrogation. BP: 117 / 72 HR: 59 Rhythm: Sinus MEASUREMENTS (Male / Female) Normal Values Technical Quality:Fair 2D ECHO LV Diastolic Diameter PLAX 5.2 cm 4.2 - 5.9 / 3.9 - 5.3 cm LV Systolic Diameter PLAX 4.0 cm IVS Diastolic Thickness 1.2 cm 0.6 - 1.0 / 0.6 - 0.9 cm LVPW Diastolic Thickness 1.2 cm 0.6 - 1.0 / 0.6 - 0.9 cm LV Relative Wall Thickness 0.5 FINDINGS Left Ventricle Normal left ventricular size and wall thickness. The left ventricular systolic function is normal wi th an estimated ejection fraction in the range of 60-65%. Left ventricular diastolic function parameters a re normal. Right Ventricle Normal right ventricular size and systolic function. Left Atrium The left atrial size is normal. Right Atrium The right atrial size is normal. Atrial Septum Normal atrial septal thickness without atrial level shunting by limited color doppler interrogation. Aorta The aortic root and proximal ascending aorta are normal in size on limited imaging. Mitral Valve Structurally normal mitral valve. No mitral valve stenosis or regurgitation. Aortic Valve Trileaflet aortic valve. No aortic valve stenosis or regurgitation. Tricuspid Valve Structurally normal tricuspid valve. No tricuspid valve stenosis or regurgitation. Pulmonary Valve The pulmonary valve is not well visualized. Vessels The inferior vena cava is normal in size. Pericardium No pericardial effusion. Vasquez Dasilva MD, FACC (Electronically Signed) Final Date:24 October 2016 11:15
[2016-10-24 12:05] VITALS: BP 119/77; PULSE 63; RESP 18; TEMP 97.7; O2SAT 100
--- NOTE | 2016-10-25 18:04 | HM ---
Date Performed: 10/23/2016 Time Performed: 09:07:00 HOOKUP DATE: 10/23/16 09:07:00 AM Wed ANALYSIS START TIME: 10/23/2016 9:12:00 AM ANALYSIS END TIME: 10/24/2016 9:16:00 AM PATIENT AGE: 41 PATIENT HEIGHT: 70 PATIENT WEIGHT: 176 DRUG LIST: ROOM # [id number] PATIENT D/Cd HOME PATIENT DIAGNOSIS: SYNCOPE VS SEIZURE TEST NARRATIVE: The patient's average heart rate was 58 BPM. No episodes of tachycardia wer e noted. Heart rates less than 50 BPM were noted 26% of the time. One pause of 2.0 seconds occur red at 04:55 PM. 88 ventricular ectopics, which represented < 1% of the total beat count, were no leelee. The highest ventricular ectopic frequency occurred from 11:00 PM to 12:00 AM [facility]. During this time 13 VE(s) occurred. Ventricular ectopics were observed as 88 isolated beat(s) only. No couplets or runs were noted. 5 supraventricular ectopics, which represented < 1% of the total beat count, were noted. The highest supraventricular ectopic frequency occurred from 04:00 PM to 05:00 PM Wed. During this time 3 SVE(s) occurred. No episodes of ST depression (defined as -1.0 mm or more) we re noted in channel 1. No episodes of ST depression (defined as -1.0 mm or more) were noted in chann el 2. No episodes of ST depression (defined as -1.0 mm or more) were noted in channel 3. TEST INTERPRETATION: Sinus rhythm Sinus bradycardia PVCs Signed by : Jl Donahue
== END 2016-10-24 14:10 | disposition home or self-care (01) ==
LOC: NEPC 23:20 → NEDA 10-23 02:30 → INTOOBSV 10-23 02:30 → NEPFCDU 10-23 05:11
PROVIDERS: ADMIT Hospitalist; ATTEND Hospitalist
DX: R55 Syncope and collapse (principal); R00.1 Bradycardia, unspecified; I95.9 Hypotension, unspecified; I25.10 Atherosclerotic heart disease of native coronary artery without angina pectoris; I11.0 Hypertensive heart disease with heart failure; I50.9 Heart failure, unspecified; I25.2 Old myocardial infarction; R73.9 Hyperglycemia, unspecified; R07.89 Other chest pain; G91.9 Hydrocephalus, unspecified; E78.5 Hyperlipidemia, unspecified; J45.909 Unspecified asthma, uncomplicated; E78.00 Pure hypercholesterolemia, unspecified; F17.200 Nicotine dependence, unspecified, uncomplicated; Z79.02 Long term (current) use of antithrombotics/antiplatelets; Z79.82 Long term (current) use of aspirin; Z86.73 Personal history of transient ischemic attack (TIA), and cerebral infarction without residual deficits; Z95.1 Presence of aortocoronary bypass graft; Z95.5 Presence of coronary angioplasty implant and graft
CPT/HCPCS: 70450; 71010; 80048; 80061; 80307; 82550; 82948; 83036; 83735; 84484; 85025; 85610; 85730; 93005; 93225; 93226; 93308; 93880; 95819; 99285; G0378

== ENCOUNTER 2016-12-20 22:07 | Observation (INO) | payer OTHER ==
[~2016-12-20] VITALS: Ht 180.3 cm; Wt 78.0 kg
[~2016-12-20 22:07] MED LIST changes: -CARV3.125 PO; -ISOS60TA PO; -LISI-519 PO
[2016-12-20 22:10] VITALS: BP 162/98; PULSE 109; RESP 12; TEMP 97.8; O2SAT 98
[2016-12-20 22:28] VITALS: BP 166/98; PULSE 100; RESP 22
[2016-12-20 22:35] VITALS: RESP 14; O2SAT 98
[2016-12-20 22:37] VITALS: BP_SYST 165; BP_SYST 166; BP_DIAS 75; BP_DIAS 98
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
[2016-12-20] MEDS ORDERED: NITROGLYCERIN 0.4 MG SL 25 TABS/BTL SL ONE (22:45)
[2016-12-20] MEDS ORDERED: SODIUM CHLORIDE 0.9% FLUSH 10 ML FLUSH IVF PRN (22:45)
--- NOTE | 2016-12-20 22:55 | RADRPT ---
EXAM DATE/TIME: 12/20/2016 22:31 [facility] COMPARISON: CHEST SINGLE AP, May 01, 2016, 20:18. CT PULMONARY ANGIOGRAM, August 16, 2016, 4:04. CHEST SING LE AP, May 14, 2016, 23:43. CHEST SINGLE AP, October 22, 2016, 23:55. INDICATIONS : Chest pain starting today MEDICAL HISTORY : Congestive heart failure, coronary artery disease SURGICAL HISTORY : Stent placement ENCOUNTER: Initial ACUITY: 1 day PAIN SCORE: 7/10 LOCATION: Bilateral chest FINDINGS: A single view of the chest demonstrates the lungs to be symmetrically aerated without evidence of mas s, infiltrate or effusion. Stable calcified pulmonary nodule upper left chest near the pleura, previ ously evaluated with CT. The cardiomediastinal contours are unremarkable. Osseous structures are in tact. CONCLUSION: No infiltrates seen. Adam Moore MD on December 20, 2016 at 22:52 Board Certified Radiologist. This report was verified electronically.
[2016-12-20] MEDS ORDERED: ONDANSETRON HCL 4 MG/2 ML VIAL IV PUSH ONE (23:30)
[2016-12-20] MEDS ORDERED: MORPHINE SULFATE 4 MG/ML INJ IV PUSH ONE (23:30)
--- NOTE | 2016-12-20 23:34 | RADRPT ---
EXAM DATE/TIME: 12/20/2016 23:28 [facility] COMPARISON: CT BRAIN W/O CONTRAST, October 23, 2016, 1:33. INDICATIONS : Syncopal episodes; patient complains of chest pain and feeling light headed. RADIATION DOSE: 36.06 CTDIvol (mGy) MEDICAL HISTORY : None SURGICAL HISTORY : None. ENCOUNTER: Initial ACUITY: 1 day PAIN SCALE: 0/10 LOCATION: cranial TECHNIQUE: Multiple contiguous axial images were obtained of the head. Using automated exposure control and adj ustment of the mA and/or kV according to patient size, radiation dose was kept as low as reasonably a chievable to obtain optimal diagnostic quality images. DICOM format image data is available electro nically for review and comparison. FINDINGS: CEREBRUM: The ventricles are normal for age. No evidence of midline shift, mass lesion, hemorrhage or acute in farction. No extra-axial fluid collections are seen. POSTERIOR FOSSA: The cerebellum and brainstem are intact. The 4th ventricle is midline. The cerebellopontine angle i s unremarkable. EXTRACRANIAL: The visualized portion of the orbits is intact. SKULL: Biparietal craniotomies are present. CONCLUSION: 1. No evidence of acute intracranial pathology. No masses are identified. Olegario Heard MD on December 20, 2016 at 23:32 Board Certified Radiologist. This report was verified electronically.
[2016-12-20 23:45] LABS: AUTOMATED NEUTROPHIL # 6.6 TH/MM3 (1.8-7.7); BASOPHIL # 0.1 TH/MM3 (0-0.2); BASOPHIL % 1.1 % (0.0-2.0); EOSINOPHIL # 0.1 TH/MM3 (0-0.4); EOSINOPHIL % 1.1 % (0.0-4.0); HEMATOCRIT 41.7 % (39.0-51.0); HEMO FLAGS DIFF FINAL; LYMPH % 30.2 % (9.0-44.0); LYMPHOCYTE # 3.3 TH/MM3 (1.0-4.8); MEAN CELL VOLUME 95.7 FL (80.0-100.0); MEAN CORPUSCULAR HEMOGLOBIN 32.7 PG (27.0-34.0); MEAN CORPUSCULAR HGB CONC 34.2 % (32.0-36.0); NEUT % 60.6 % (16.0-70.0); PLATELET COUNT 307 TH/MM3 (150-450); RED BLOOD COUNT 4.36 MIL/MM3 (4.50-5.90); RED CELL DISTRIBUTION WIDTH 13.5 % (11.6-17.2); WHITE BLOOD COUNT 10.9 TH/MM3 (4.0-11.0)
[2016-12-20 23:59] LABS: APTT (PATIENT) 29.1 SEC (24.3-30.1); PROTHROMBIN TIME - PATIENT 11.2 SEC (9.8-11.6)
[2016-12-21 00:02] VITALS: BP 148/75; PULSE 68; RESP 16; TEMP 98.5; O2SAT 99
[2016-12-21 00:09] LABS: ALT (GPT) 16 U/L (12-78); ANION GAP 11 MEQ/L (5-15); AST (GOT) 13 U/L (15-37); BICARBONATE 25.8 MEQ/L (21.0-32.0); BLOOD UREA NITROGEN 7 MG/DL (7-18); CHLORIDE 105 MEQ/L (98-107); GLOMERULAR FILTRATION RATE 89 ML/MIN (>89); POTASSIUM 3.3 MEQ/L (3.5-5.1); SODIUM (NA) 142 MEQ/L (136-145)
[2016-12-21 00:13] LABS: ALKALINE PHOSPHATASE 100 U/L (45-117); CREATINE KINASE 271 U/L (39-308); TOTAL BILIRUBIN ADULT 0.4 MG/DL (0.2-1.0)
[2016-12-21 00:25] LABS: CKMB 1.2 NG/ML (0.5-3.6)
[2016-12-21] MEDS ORDERED: SODIUM CHLORIDE 0.9% FLUSH 10 ML FLUSH IV FLUSH PRN (00:45)
[2016-12-21 02:46] VITALS: BP 133/85; PULSE 61; RESP 18; TEMP 96.8; O2SAT 98
[2016-12-21 02:59] LABS: CREATINE KINASE 244 U/L (39-308)
[2016-12-21 03:12] LABS: CKMB 1.2 NG/ML (0.5-3.6)
[2016-12-21 03:18] VITALS: PULSE 62
[2016-12-21 06:25] LABS: CREATINE KINASE 241 U/L (39-308)
[2016-12-21 06:40] LABS: CKMB 1.8 NG/ML (0.5-3.6)
[2016-12-21 07:28] VITALS: BP 120/84; PULSE 60; RESP 16; TEMP 98.5; O2SAT 97
[2016-12-21] MEDS ORDERED: POTASSIUM CHLORIDE 25 MEQ EFFERVESCENT TAB PO ONE (08:00)
[2016-12-21 08:49] VITALS: PULSE 70
[2016-12-21] MEDS ORDERED: amLODIPine BESYLATE 5 MG TAB PO SCH (09:00)
[2016-12-21] MEDS ORDERED: CLOPIDOGREL 75 MG TAB PO SCH (09:00)
[2016-12-21] MEDS ORDERED: ACETAMINOPHEN/HYDROcodone 325 MG/7.5 MG TAB PO PRN (09:00)
[2016-12-21] MEDS ORDERED: SODIUM CHLORIDE 0.9% FLUSH 10 ML FLUSH IV FLUSH SCH (09:00)
[2016-12-21] MEDS ORDERED: ISOS30TA3 PO (10:26)
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
[2016-12-21 11:07] VITALS: BP 115/71; PULSE 63; RESP 18; TEMP 97.8; O2SAT 97
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
[2016-12-21] MEDS ORDERED: ATORVASTATIN 40 MG TAB PO SCH (21:00)
--- NOTE | 2016-12-22 11:16 | EKG ---
Date Performed: 12/21/2016 Time Performed: 07:35:02 PTAGE: 41 years EKG: Sinus rhythm MODERATE INTRAVENTRICULAR CONDUCTION DELAY BORDERLINE ECG NO SIG CHANGE PREVIOUS TRACING : 12/21/2016 05.08 DOCTOR: César Carroll Interpretating Date/Time 12/22/2016 11:15:09
--- NOTE | 2016-12-22 11:18 | EKG ---
Date Performed: 12/21/2016 Time Performed: 05:08:27 PTAGE: 41 years EKG: Sinus rhythm MODERATE INTRAVENTRICULAR CONDUCTION DELAY ST ELEVATION, PROBABLY EARLY REPOLARIZATION POOR R WAVE P ROGRESSION POSSIBLY LEAD PLACEMENT BORDERLINE ECG PREVIOUS TRACING : 12/21/2016 02.15 DOCTOR: César Carroll Interpretating Date/Time 12/22/2016 11:17:18
--- NOTE | 2016-12-22 11:22 | EKG ---
Date Performed: 12/21/2016 Time Performed: 02:15:57 PTAGE: 41 years EKG: Sinus rhythm ST ELEVATION, PROBABLY EARLY REPOLARIZATION BORDERLINE ECG NO SIG CHANGE PREVIOUS TRACING : 10/22/2016 23.26 DOCTOR: César Carroll Interpretating Date/Time 12/22/2016 11:21:53
--- NOTE | 2016-12-22 11:24 | EKG ---
Date Performed: 12/20/2016 Time Performed: 22:29:53 PTAGE: 41 years EKG: Sinus rhythm INDETERMINATE AXIS NONSPECIFIC ST ELEVATION NO SIGNIFICANT CHANGE BORDERLINE ECG NO PREVIOUS TRACING DOCTOR: César Carroll Interpretating Date/Time 12/22/2016 11:24:08
== END 2016-12-21 12:16 | disposition home or self-care (01) ==
LOC: NEPC 22:07 → NEDA 12-21 00:42 → NEPFCDU 12-21 02:32
PROVIDERS: ADMIT Internal Medicine Interventional Cardiology; ATTEND Internal Medicine Interventional Cardiology
DX: R07.9 Chest pain, unspecified (principal); I25.10 Atherosclerotic heart disease of native coronary artery without angina pectoris; I10 Essential (primary) hypertension; E78.5 Hyperlipidemia, unspecified; F17.210 Nicotine dependence, cigarettes, uncomplicated; I25.2 Old myocardial infarction; J45.909 Unspecified asthma, uncomplicated; F41.9 Anxiety disorder, unspecified; F32.9 Major depressive disorder, single episode, unspecified; Z95.5 Presence of coronary angioplasty implant and graft; Z79.01 Long term (current) use of anticoagulants; Z79.82 Long term (current) use of aspirin; Z79.899 Other long term (current) drug therapy
CPT/HCPCS: 70450; 71010; 80053; 82550; 82552; 83735; 84484; 85025; 85610; 85730; 93005; 96374; 96375; 99285; G0378; J2270; J2405

== ENCOUNTER 2016-12-24 14:55 | Inpatient (IN) | payer OTHER ==
[~2016-12-24] VITALS: Ht 182.9 cm; Wt 72.5 kg
[~2016-12-24 14:55] MED LIST changes: +ISOS30TA3 PO
[2016-12-24 15:03] VITALS: BP 132/90; PULSE 100; RESP 18; TEMP 98.4; O2SAT 97
[2016-12-24 16:18] LABS: BASOPHIL # 0.1 TH/MM3 (0-0.2); BASOPHIL % 1.1 % (0.0-2.0); EOSINOPHIL # 0.1 TH/MM3 (0-0.4); EOSINOPHIL % 1.7 % (0.0-4.0); HEMATOCRIT 48.2 % (39.0-51.0); HEMO FLAGS DIFF FINAL; LYMPH % 17.7 % (9.0-44.0); LYMPHOCYTE # 1.5 TH/MM3 (1.0-4.8); MEAN CELL VOLUME 96.1 FL (80.0-100.0); MEAN CORPUSCULAR HEMOGLOBIN 32.4 PG (27.0-34.0); MEAN CORPUSCULAR HGB CONC 33.7 % (32.0-36.0); MONO % 6.4 % (0.0-8.0); NEUT % 73.1 % (16.0-70.0); PLATELET COUNT 201 TH/MM3 (150-450); RED BLOOD COUNT 5.02 MIL/MM3 (4.50-5.90); RED CELL DISTRIBUTION WIDTH 13.6 % (11.6-17.2); WHITE BLOOD COUNT 8.2 TH/MM3 (4.0-11.0)
[2016-12-24 16:36] LABS: ANION GAP 11 MEQ/L (5-15); AST (GOT) 10 U/L (15-37); BICARBONATE 22.8 MEQ/L (21.0-32.0); BLOOD UREA NITROGEN 11 MG/DL (7-18); CHLORIDE 108 MEQ/L (98-107); GLOMERULAR FILTRATION RATE 81 ML/MIN (>89); POTASSIUM 3.8 MEQ/L (3.5-5.1); SODIUM (NA) 142 MEQ/L (136-145)
[2016-12-24 16:41] LABS: ALKALINE PHOSPHATASE 92 U/L (45-117); ALT (GPT) 15 U/L (12-78); TOTAL BILIRUBIN ADULT 0.6 MG/DL (0.2-1.0)
--- NOTE | 2016-12-24 16:49 | PD ---
HPI Chief Complaint: Suicide Ideation/Attempt Time Seen by Provider: 16:45 Travel History International Travel<30 days: No Contact w/Intl Traveler<30days: No Traveled to known affect area: No History of Present Illness HPI Patient comes in by EMS related to Seroquel overdose. Patient states he took fifteen 300 mg tablets of Seroquel last night around 10 PM. Patient states he has attempt to kill himself in the past and was trying to end his life last night. Patient denies feeling homicidal or suicidal currently. Patient reports history of previous suicide attempts. Patient is uncertain who called 911. Patient denies anything making his symptoms better. Patient states his friend did recently 2 weeks ago, but not from an overdose or suicide. States also that he sits at his house at night a lone with the electricity which makes him feel more depressed. Denies any chest pain, shortness of breath , fevers, headache, numbness or tingling anywhere, abdominal pain, or other medical concerns. PFSH Past Medical History Hx Anticoagulant Therapy: Yes (Aspirn) Asthma: Yes Blood Disorders: No Anxiety: Yes Depression: Yes Heart Rhythm Problems: No Cancer: No Cardiac Catheterization: Yes (stent x5) Cardiovascular Problems: Yes (CAD, HTN, Stent x5, ND) High Cholesterol: Yes Chest Pain: Yes Congestive Heart Failure: No COPD: No Coronary Artery Disease: Yes Diminished Hearing: No Endocrine: No Gastrointestinal Disorders: No Genitourinary: No Hypertension: Yes Immune Disorder: No Implanted Vascular Access Dvce: Yes Musculoskeletal: No Neurologic: Yes (HYDROCEPHALUS, Syncope) Psychiatric: No Reproductive: No Respiratory: Yes (Asthma) Migraines: Yes Myocardial Infarction: Yes Sleep Apnea: Yes Past Surgical History Body Medical Devices: STENTS Cardiac Surgery: Yes Neurologic Surgery: Yes (shunt for hydrocephalus and removal) Other Surgery: Yes (CATH, STENTSX4, SHUNT) Social History Alcohol Use: No Tobacco Use: Yes Substance Use: No Allergies-Medications (Allergen,Severity, Reaction): Coded Allergies: No Known Allergies (Unverified , 10/22/16) Reported Meds & Prescriptions Reported Meds & Active Scripts Active Isosorbide Mononitrate ER (Isosorbide Mononitrate) 30 Mg Nicole 30 Mg PO DAILY Norvasc (Amlodipine Besylate) 5 Mg Tab 5 Mg PO DAILY Lipitor (Atorvastatin Calcium) 40 Mg Tab 40 Mg PO HS Plavix (Clopidogrel Bisulfate) 75 Mg Tab 75 Mg PO DAILY 30 Days Nitroglycerin SL (Nitroglycerin) 0.4 Mg Subl 0.4 Mg SL DIRECTED PRN ONE TABLET UNDER THE TONGUE NEEDED FOR CHEST PAIN, MAY REPEAT EVERY FIVE MINUTES FOR A TOTAL OF 3 DOSES OR CALL 911 IF NO RELIEF [Aspirin Chew] 81 MG Chew 81 Mg PO DAILY Review of Systems Except as stated in HPI: all other systems reviewed are Neg Physical Exam Narrative GENERAL: Well-developed, well nourished, in no acute distress, and non-ill appearing. SKIN: Focused skin assessment warm and dry. HEAD: Atraumatic. Normocephalic. EYES: Pupils equal and round. EOMI. No scleral icterus. No injection or drainage. ENT: No nasal bleeding or discharge. Mucous membranes pink and moist. NECK: Trachea midline. No JVD. Supple. No nuclear rigidity. CARDIOVASCULAR: Regular rate and rhythm. No murmur appreciated. RESPIRATORY: No accessory muscle use. No respiratory distress. Clear to auscultation. Breath sounds equal bilaterally. GASTROINTESTINAL: Abdomen soft, non-tender, nondistended, and no guarding. Hepatic and splenic margins not palpable. Normal bowel sounds 4. No pulsatile mass. MUSCULOSKELETAL: No obvious deformities. No clubbing. No cyanosis. No edema. Full range of motion. NEUROLOGICAL: Awake and alert. No obvious cranial nerve deficits. Motor grossly within normal limits. Normal speech. PSYCHIATRIC: Appropriate mood and affect; insight and judgment normal. Data Data Last Documented VS Vital Signs Date Time Temp Pulse Resp B/P Pulse Ox O2 Delivery O2 Flow Rate FiO2 12/24/16 18:12 98 Room Air 12/24/16 15:03 98.4 100 18 132/90 Orders Complete Blood Count With Diff (12/24/16 15:53) Salicylates (Aspirin) (12/24/16 15:53) Comprehensive Metabolic Panel (12/24/16 15:53) Electrocardiogram (12/24/16 15:04) Act Partial Throm Time (Ptt) (12/24/16 16:43) Prothrombin Time / Inr (Pt) (12/24/16 16:43) Drug Screen, Random Urine (12/24/16 16:43) Alcohol (Ethanol) (12/24/16 16:43) Tylenol (Acetaminophen) (8/8/17 16:43) Labs Laboratory Tests Test 12/24/16 12/24/16 12/24/16 15:53 17:00 17:05 White Blood Count 8.2 TH/MM3 Red Blood Count 5.02 MIL/MM3 Hemoglobin 16.2 GM/DL Hematocrit 48.2 % Mean Corpuscular Volume 96.1 FL Mean Corpuscular Hemoglobin 32.4 PG Mean Corpuscular Hemoglobin 33.7 % Concent Red Cell Distribution Width 13.6 % Platelet Count 201 TH/MM3 Mean Platelet Volume 7.9 FL Neutrophils (%) (Auto) 73.1 % Lymphocytes (%) (Auto) 17.7 % Monocytes (%) (Auto) 6.4 % Eosinophils (%) (Auto) 1.7 % Basophils (%) (Auto) 1.1 % Neutrophils # (Auto) 6.0 TH/MM3 Lymphocytes # (Auto) 1.5 TH/MM3 Monocytes # (Auto) 0.5 TH/MM3 Eosinophils # (Auto) 0.1 TH/MM3 Basophils # (Auto) 0.1 TH/MM3 CBC Comment DIFF FINAL Differential Comment Sodium Level 142 MEQ/L Potassium Level 3.8 MEQ/L Chloride Level 108 MEQ/L Carbon Dioxide Level 22.8 MEQ/L Anion Gap 11 MEQ/L Blood Urea Nitrogen 11 MG/DL Creatinine 1.01 MG/DL Estimat Glomerular Filtration 81 ML/MIN Rate Random Glucose 96 MG/DL Calcium Level 9.2 MG/DL Total Bilirubin 0.6 MG/DL Aspartate Amino Transf 10 U/L (AST/SGOT) Alanine Aminotransferase 15 U/L (ALT/SGPT) Alkaline Phosphatase 92 U/L Total Protein 7.4 GM/DL Albumin 4.0 GM/DL Salicylates Level 4.7 MG/DL Prothrombin Time 13.0 SEC Prothromb Time International 1.2 RATIO Ratio Activated Partial 27.5 SEC Thromboplast Time Acetaminophen Level LESS THAN 2.0 MCG/ML Ethyl Alcohol Level LESS THAN 3 MG/DL Urine Opiates Screen NEG Urine Barbiturates Screen NEG Urine Amphetamines Screen NEG Urine Benzodiazepines Screen NEG Urine Cocaine Screen NEG Urine Cannabinoids Screen POS MDM Medical Decision Making Medical Screen Exam Complete: Yes Emergency Medical Condition: Yes Interpretation(s) EKG reviewed by Dr. Koroma shows normal sinus rhythm ventricular rate of 89. No STEMI. Differential Diagnosis Homicidal, suicidal, intentional overdose, accidental overdose, other Narrative Course Patient was seen and examined. Labs were obtained and reviewed. Patient medically cleared for further treatment and evaluation by psych. Final disposition per psych. Patient was placed under Pan act by Dr. Koroma. Diagnosis Primary Impression: Suicidal intent Additional Impression: Medical clearance for psychiatric admission Condition: Stable Jose Carlos Pearl Dec 24, 2016 16:49
[2016-12-24 17:49] LABS: AMPHETAMINE, URINE NEG (NEG); BARBITURATES, URINE NEG (NEG); COCAINE, URINE NEG (NEG)
[2016-12-24 17:58] LABS: APTT (PATIENT) 27.5 SEC (24.3-30.1); INTERNATIONAL NORMALIZED RATIO 1.2 RATIO
[2016-12-24 17:59] LABS: ACETAMINOPHEN LESS THAN 2.0 MCG/ML (10.0-30.0)
--- NOTE | 2016-12-24 19:23 | PD ---
Data Data Last Documented VS Vital Signs Date Time Temp Pulse Resp B/P Pulse Ox O2 Delivery O2 Flow Rate FiO2 12/24/16 18:12 98 Room Air 12/24/16 15:03 98.4 100 18 132/90 Orders Complete Blood Count With Diff (12/24/16 15:53) Salicylates (Aspirin) (12/24/16 15:53) Comprehensive Metabolic Panel (12/24/16 15:53) Electrocardiogram (12/24/16 15:04) Act Partial Throm Time (Ptt) (12/24/16 16:43) Prothrombin Time / Inr (Pt) (12/24/16 16:43) Drug Screen, Random Urine (12/24/16 16:43) Alcohol (Ethanol) (12/24/16 16:43) Tylenol (Acetaminophen) (12/24/16 16:43) Labs Laboratory Tests Test 12/24/16 12/24/16 12/24/16 15:53 17:00 17:05 White Blood Count 8.2 TH/MM3 Red Blood Count 5.02 MIL/MM3 Hemoglobin 16.2 GM/DL Hematocrit 48.2 % Mean Corpuscular Volume 96.1 FL Mean Corpuscular Hemoglobin 32.4 PG Mean Corpuscular Hemoglobin 33.7 % Concent Red Cell Distribution Width 13.6 % Platelet Count 201 TH/MM3 Mean Platelet Volume 7.9 FL Neutrophils (%) (Auto) 73.1 % Lymphocytes (%) (Auto) 17.7 % Monocytes (%) (Auto) 6.4 % Eosinophils (%) (Auto) 1.7 % Basophils (%) (Auto) 1.1 % Neutrophils # (Auto) 6.0 TH/MM3 Lymphocytes # (Auto) 1.5 TH/MM3 Monocytes # (Auto) 0.5 TH/MM3 Eosinophils # (Auto) 0.1 TH/MM3 Basophils # (Auto) 0.1 TH/MM3 CBC Comment DIFF FINAL Differential Comment Sodium Level 142 MEQ/L Potassium Level 3.8 MEQ/L Chloride Level 108 MEQ/L Carbon Dioxide Level 22.8 MEQ/L Anion Gap 11 MEQ/L Blood Urea Nitrogen 11 MG/DL Creatinine 1.01 MG/DL Estimat Glomerular Filtration 81 ML/MIN Rate Random Glucose 96 MG/DL Calcium Level 9.2 MG/DL Total Bilirubin 0.6 MG/DL Aspartate Amino Transf 10 U/L (AST/SGOT) Alanine Aminotransferase 15 U/L (ALT/SGPT) Alkaline Phosphatase 92 U/L Total Protein 7.4 GM/DL Albumin 4.0 GM/DL Salicylates Level 4.7 MG/DL Prothrombin Time 13.0 SEC Prothromb Time International 1.2 RATIO Ratio Activated Partial 27.5 SEC Thromboplast Time Acetaminophen Level LESS THAN 2.0 MCG/ML Ethyl Alcohol Level LESS THAN 3 MG/DL Urine Opiates Screen NEG Urine Barbiturates Screen NEG Urine Amphetamines Screen NEG Urine Benzodiazepines Screen NEG Urine Cocaine Screen NEG Urine Cannabinoids Screen POS MDM Supervised Visit with ELIDIA: Yes Narrative Course The history, exam, and medical decision-making in the associated midlevel provider note were completed with my assistance. I reviewed and agree with the findings presented. I attest that I had a [id number] encounter with the patient on the same day, and personally performed and documented my assessment and findings in the medical record. *My assessment and Findings: This is a 41-year-old male who presents to the emergency department with an intentional Seroquel overdose. He's had multiple overdoses in the past. He appears very depressed. He recently had a friend that . I think he is high risk for suicide. He was placed under a Pan act and I think he requires psychiatric evaluation. Labs are obtained which were reassuring. Diagnosis Primary Impression: Suicidal intent Additional Impression: Medical clearance for psychiatric admission Condition: Ronel Degroot MD Dec 24, 2016 19:23
[2016-12-24 20:14] VITALS: BP 124/79; PULSE 90; RESP 18; TEMP 99.1; O2SAT 97
[2016-12-24] MEDS ORDERED: TRAZ1TAB45 PO (20:40)
[2016-12-24 22:06] VITALS: BP 124/65; PULSE 72; RESP 18; TEMP 98.5; O2SAT 97
[2016-12-25 02:11] VITALS: BP 136/76; PULSE 84; RESP 18; TEMP 98.5; O2SAT 97
[2016-12-25 06:10] VITALS: BP 116/63; PULSE 95; RESP 17; O2SAT 99
--- NOTE | 2016-12-25 08:31 | EKG ---
Date Performed: 12/24/2016 Time Performed: 15:04:47 PTAGE: 41 years EKG: Sinus rhythm MARKED LEFT AXIS DEVIATION ABNORMAL ECG PREVIOUS TRACING : 12/21/2016 07.35 DOCTOR: Sancho Xavier Interpretating Date/Time 12/25/2016 08:28:08
[2016-12-25] MEDS ORDERED: ALUMINUM/MAGNESIUM/SIMETH 30 ML CUP PO PRN (10:00)
[2016-12-25] MEDS ORDERED: LORazepam 1 MG TAB PO PRN (10:00)
[2016-12-25] MEDS ORDERED: MAGNESIUM HYDROXIDE SUSP 30 ML CUP PO PRN (10:00)
[2016-12-25] MEDS ORDERED: LORazepam 2 MG/ML VIAL IM PRN ×2 (10:00)
[2016-12-25] MEDS ORDERED: LORazepam 0.5 MG TAB PO PRN (10:00)
--- NOTE | 2016-12-25 10:20 | HHI.HP ---
Provisional Diagnosis Admission Date [place] I. Major depression, single episode, moderate to severe Certification of Person's Competence To Provide Express and Informed Consent I have personally examined Bang Hays , a person being served at [facility] on, Dec 25, 2016 09:56. Express and informed consent means consent voluntarily given in writing, by a competent person, after sufficient explanation and disclosure of the subject matter involved to enable the person to make a knowing and willful decision without any element of force, fraud, deceit, duress, or other form of constraint or coercion. This person is 18 years of age or older, is not now known to be incompetent to consent to treatment with a guardian advocate, and does not have a health care surrogate or proxy currently making medical treatment decisions. I have found this person to be one of the following: [x] Competent to provide express and informed consent, as defined above, for voluntary admission to this facility and is competent to provide express and informed consent for treatment. He/she has the consistent capacity to make well reasoned, willful, and knowing decisions concerning his or her medical or mental health treatment. The person fully and consistently understands the purpose of the admission for examination/placement and is fully capable of personally exercising all rights assured under [place] Incompetent to provide express and informed consent to voluntary admission, and this is incompetent to provide express and informed consent to treatment. The person must be transferred to involuntary status and a petition for a guardian advocate filed with the Circuit Court. [] Refusing to provide express and informed consent to voluntary admission but is competent to provide express and informed consent for treatment. The person must be discharged or transferred to involuntary status. Form shall be completed within 24 hours of a person's arrival at the receiving facility and filed in the clinical record of each person: 1. Admitted on a voluntary basis 2. Permitted to provide express and informed consent to his/her own treatment 3. Allowed to transfer from involuntary to voluntary status 4. Prior to permitting a person to consent to his or her own treatment after having been previously found incompetent to consent to treatment. History of Present Illness Capacity: Has Capacity HPI 41-year-old male with history of cardiac disease overdosed on approximately 11 300 mg Seroquel pills. Patient was Pan acted for suicidality by the emergency room physician here at [place]. He describes multiple symptoms of depression since his inability to work due to cardiac issues. He has depressed mood, anhedonia, anxiety about his lack of income, feelings of hopelessness and helplessness, markedly diminished self-esteem, decreased energy, sleep disturbance, etc. The patient is currently living with his 15-year-old son and 19-year-old son. However, there is a lack of income to support them and pay his bills. Patient states he has applied for Social Security disability but has been unable to obtain it, despite the fact that he can't work. This depression has been going on for greater than 6 months. Patient denies problems with alcohol or drug abuse. He denies having significant support or financial assistance from family. Review of Systems Except as stated in HPI: all other systems reviewed are Neg Past Psych History Psychological trauma history Denied Violence risk - others (6 mos) Minimal to moderate. Violence risk - self (6 mos) High Substance Abuse History Drugs/Alcohol past 12 months Denied with the exception of occasional marijuana. Past Family Social History Coded Allergies: No Known Allergies (Unverified , 10/22/16) Active Scripts Amlodipine (Norvasc)5 Mg Tab5 Mg PO DAILY #30 TAB Ref 1 Prov:Mary Horne MD 09/24/16 Atorvastatin (Lipitor)40 Mg Tab40 Mg PO HS #30 TAB Ref 11 Prov:Vasquez Dasilva MD 07/31/16 Clopidogrel (Plavix)75 Mg Tab75 Mg PO DAILY 30 Days Ref 11 Prov:Vasquez Dasilva MD 07/31/16 Nitroglycerin SL 0.4 Mg Subl0.4 Mg SL DIRECTED PRN (CHEST PAIN) #60 TAB.SL Ref 0 ONE TABLET UNDER THE TONGUE NEEDED FOR CHEST PAIN, MAY REPEAT EVERY FIVE MINUTES FOR A TOTAL OF 3 DOSES OR CALL 911 IF NO RELIEF Prov:Brandon Nam DO 05/15/16 [Aspirin] (Aspirin Chew)81 MG CHEW No Conflict Check81 Mg PO DAILY #30 TAB.CHEW Prov:Timmy Trevino MD R3 05/04/16 Reported Medications Trazodone 150 Mg Rncbib003 Mg PO HS #30 TAB Ref 0 12/24/16 Discontinued Scripts Isosorbide Mononitrate ER 30 Mg Taber30 Mg PO DAILY #30 TAB Ref 0 Prov:Darnell Crowell 12/21/16 Family History Positive for mood and anxiety disorders. Social History Unemployed. No income. Denies alcohol and drug abuse. Currently living with his 2 sons, locally. Patient's Strengths (min. 2) Verbal and has access to healthcare. Physical Exam GENERAL: SKIN: Warm and dry. HEAD: Normocephalic. EYES: No scleral icterus. No injection or drainage. NECK: Supple, trachea midline. No JVD or lymphadenopathy. CARDIOVASCULAR: Regular rate and rhythm without murmurs, gallops, or rubs. RESPIRATORY: Breath sounds equal bilaterally. No accessory muscle use. GASTROINTESTINAL: Abdomen soft, non-tender, nondistended. MUSCULOSKELETAL: No cyanosis, or edema. BACK: Nontender without obvious deformity. No CVA tenderness. Vital Signs Vital Signs Date Time Temp Pulse Resp B/P Pulse Ox O2 Delivery O2 Flow Rate FiO2 12/25/16 06:10 95 17 116/63 99 Room Air 12/25/16 02:11 98.5 Mental Status Examination Speech: Unremarkable Orientation: x3 Memory: Unremarkable Thought Process: Organized, Goal Directed Thought Content: Unremarkable Hallucination Type: None Attention and Concentration: Good Suicidal Ideation: Yes Previous Suicide Attempts: Yes Homicidal Ideation: No Previous Homicide Attempts: No Insight: Fair Judgment: Unrealistic Affect: Anxious, Sad Mood: Sad, Anxious Motor Activity: Normal gait Assessment & Plan Problem List: (1) Moderately severe major depressive disorder, single episode ICD Code: F32.9 Assessment & Plan Estimated LOS: days 41-year-old male with multiple risk factors for depression and suicide including cardiac status, inability to work, financial stress, family stress, previous suicide attempt at age 17 by cutting his wrists, recent overdose on Seroquel, etc. This physician feels the patient is at high risk for self-harm and he will therefore be admitted for evaluation and treatment. This physician has ordered a CBC and comprehensive metabolic profile to determine if any infectious process or metabolic process is causing or contributing to his depression. Additionally, we will check his thyroid stimulating hormone and vitamin B-12 and vitamin D levels to determine if they contribute adversely to his depression. We will obtain an EKG because the patient has a history of cardiac disease and we are obtaining a hospitalist consult to evaluate him for his cardiac condition. This physician spoke with the patient's nurse regarding his current and recent history. This physician is also concerned because the patient overdosed on approximately 3500 mg of Seroquel, which could have been lethal due to his cardiac condition. We will also involve case management to gather more information and assist with appropriate disposition planning. Antidepressant therapy is recommended but must be provided with caution due to his cardiac condition. Rolf Weir MD Dec 25, 2016 10:20
[2016-12-25 11:51] VITALS: BP 132/85; PULSE 80; RESP 18; O2SAT 97
[2016-12-25] MEDS ORDERED: NITROGLYCERIN 0.4 MG SL 25 TABS/BTL SL PRN (13:30)
[2016-12-25] MEDS ORDERED: PILL SPLITTER OTHER PRN (14:15)
[2016-12-25 14:28] VITALS: BP 136/87; PULSE 77; RESP 19; TEMP 97.9; O2SAT 99
--- NOTE | 2016-12-25 14:28 | PD.CONS ---
HPI Service [facility] Hospitalists Consult Requested By Rolf Weir M.D. Reason for Consult Medical management Primary Care Physician Unknown Diagnoses: History of Present Illness Written by Hilario Gary, acting as scribe for Dr. Cornelius Aquino on 12/25/16 at 14: 22. Mr. Hays is 41 yo, with history of STEMI, stent placement (x5), hypertension, hyperlipidemia, asthma, hydrocephalus, syncope,migraine headaches , and asthma. Mr. Hays reported took an overdose of 11-15 500 mg Seroquel tablets on the evening of 12/23/16. From the medical report, his actions were related to emotional and economic stressors. In discussion with him, he stated his medications were being "messed with" and "not continued" by his PCP, which he said he has changed due to financial reasons. He was brought to [facility] ED for evaluation and management of his overdose. He was medically cleared by the ED team and placed under a Pan act and subsequently admitted to the inpatient psychiatric service. At time of interview, Mr. Hays reported having intermittent chest pain that had been present for several months. He denied fever, chills, cough, shortness of breath, NVD, bloody urine or stool. A 10 pt ROS was completed and, except as noted above, was negative. Dr. Weir requested hospitalist team to medically manage Mr. Hays's cardiac issues. Review of Systems Except as stated in HPI: all other systems reviewed are Neg Past Family Social History Allergies: Coded Allergies: No Known Allergies (Unverified , 10/22/16) Past Medical History asthma, history of STEMI, hyperlipidemia, hypertension, hydrocephalus, migraine headaches, syncope, Past Surgical History Shunt placement and removed for hydrocephalus. Cardiac catheterization Stent placement x 5 Reported Medications Reported Meds & Active Scripts Active Norvasc (Amlodipine Besylate) 5 Mg Tab 5 Mg PO DAILY Lipitor (Atorvastatin Calcium) 40 Mg Tab 40 Mg PO HS Plavix (Clopidogrel Bisulfate) 75 Mg Tab 75 Mg PO DAILY 30 Days Nitroglycerin SL (Nitroglycerin) 0.4 Mg Subl 0.4 Mg SL DIRECTED PRN ONE TABLET UNDER THE TONGUE NEEDED FOR CHEST PAIN, MAY REPEAT EVERY FIVE MINUTES FOR A TOTAL OF 3 DOSES OR CALL 911 IF NO RELIEF [Aspirin Chew] 81 MG Chew 81 Mg PO DAILY Reported Trazodone (Trazodone HCl) 150 Mg Tablet 150 Mg PO HS Active Ordered Medications Current Medications Medications (Trade) Dose Ordered Sig/Frantz Route Start Time Stop Time Status Last Admin (Ativan) 1 mg Q6H PRN PO 12/25/16 10:00 (Ativan Inj) 1 mg Q6H PRN IM 12/25/16 10:00 (Tylenol) 650 mg Q4H PRN PO 12/25/16 10:00 (Milk Of Magnesia Liq) 30 ml DAILY PRN PO 12/25/16 10:00 (Mag-Al Plus Susp Liq) 30 ml Q6H PRN PO 12/25/16 10:00 (Norvasc) 5 mg DAILY PO 12/26/16 09:00 (Lipitor) 40 mg HS PO 12/25/16 21:00 (Plavix) 75 mg DAILY PO 12/26/16 09:00 (Aspirin Chew) 81 mg DAILY PO 12/26/16 09:00 (Lopressor) 12.5 mg Q12HR PO 12/25/16 21:00 (Nitrostat Sl) 0.4 mg Q5M PRN SL 12/25/16 13:30 (Pill Splitter) 1 ea UNSCH PRN OTHER 12/25/16 14:15 Family History Cancer of the brain and colon were reported within the family, though family members not identified. Heart disease diagnosed in Father and maternal grandmother. Family history for drugs and alcohol abuse reported, without specific family members being identified. Social History Pt endorsed smoking 3 packs of cigarettes a day for 30 years. He reported since having his "first heart attack in April of last year (2016) )" he smokes 3 cigarettes per day. Alcohol use and illicit/recreational drug use was denied. Medical records indicate he lives with two sons ages 13 and 19. Physical Exam Vital Signs Vital Signs Date Time Temp Pulse Resp B/P Pulse Ox O2 Delivery O2 Flow Rate FiO2 12/25/16 11:51 80 18 132/85 97 Room Air 12/25/16 06:10 95 17 116/63 99 Room Air 12/25/16 02:11 98.5 84 18 136/76 97 Room Air 12/24/16 22:06 98.5 72 18 124/65 97 Room Air 12/24/16 20:14 99.1 90 18 124/79 97 Room Air 12/24/16 18:12 98 Room Air 12/24/16 15:03 98.4 100 18 132/90 97 Physical Exam GENERAL: This is a well-nourished, well-developed patient, in no apparent distress. SKIN: No rashes, ecchymoses or lesions. Cool and dry. Tattoos noted. HEAD: Atraumatic. Normocephalic. EYES: Pupils equal round and reactive. Extraocular motions intact. No scleral icterus. No injection or drainage. ENT: Nose without bleeding or purulent drainage. Airway patent. NECK: Trachea midline. No lymphadenopathy. Supple and nontender. CARDIOVASCULAR: Regular rate and rhythm without murmurs, gallops, or rubs. RESPIRATORY: Clear to auscultation. Breath sounds equal bilaterally. No wheezes , rales, or rhonchi. GASTROINTESTINAL: Abdomen soft, non-tender, nondistended. No hepato- splenomegaly or guarding. MUSCULOSKELETAL: Extremities without clubbing, cyanosis, or edema. No joint tenderness, effusion, or edema noted. NEUROLOGICAL: Awake and alert. Cranial nerves II through XII intact. Motor and sensory grossly within normal limits. Five out of 5 muscle strength in all muscle groups. Speech clear and fluent. Laboratory Laboratory Tests Test 12/24/16 12/24/16 12/24/16 15:53 17:00 17:05 White Blood Count 8.2 Red Blood Count 5.02 Hemoglobin 16.2 Hematocrit 48.2 Mean Corpuscular Volume 96.1 Mean Corpuscular Hemoglobin 32.4 Mean Corpuscular Hemoglobin 33.7 Concent Red Cell Distribution Width 13.6 Platelet Count 201 Mean Platelet Volume 7.9 Neutrophils (%) (Auto) 73.1 Lymphocytes (%) (Auto) 17.7 Monocytes (%) (Auto) 6.4 Eosinophils (%) (Auto) 1.7 Basophils (%) (Auto) 1.1 Neutrophils # (Auto) 6.0 Lymphocytes # (Auto) 1.5 Monocytes # (Auto) 0.5 Eosinophils # (Auto) 0.1 Basophils # (Auto) 0.1 CBC Comment DIFF FINAL Differential Comment Sodium Level 142 Potassium Level 3.8 Chloride Level 108 Carbon Dioxide Level 22.8 Anion Gap 11 Blood Urea Nitrogen 11 Creatinine 1.01 Estimat Glomerular Filtration 81 Rate Random Glucose 96 Calcium Level 9.2 Total Bilirubin 0.6 Aspartate Amino Transf 10 (AST/SGOT) Alanine Aminotransferase 15 (ALT/SGPT) Alkaline Phosphatase 92 Total Protein 7.4 Albumin 4.0 Salicylates Level 4.7 Prothrombin Time 13.0 Prothromb Time International 1.2 Ratio Activated Partial 27.5 Thromboplast Time Acetaminophen Level LESS THAN 2.0 Ethyl Alcohol Level LESS THAN 3 Urine Opiates Screen NEG Urine Barbiturates Screen NEG Urine Amphetamines Screen NEG Urine Benzodiazepines Screen NEG Urine Cocaine Screen NEG Urine Cannabinoids Screen POS Result Diagram: 12/24/16 1553 12/24/16 1553 Assessment and Plan Assessment and Plan Mr. Hays is 41 yo, with history of STEMI, stent placement (x5), hypertension, hyperlipidemia, asthma, hydrocephalus, syncope,migraine headaches , and asthma. Depression -treatment per primary team. Hypertension -Amlodipine 5 mg po daily -Metoprolol 12.5 mg po BID -Aspirin 81 mg po daily -Plavix 75 mg po dialy Hyperlipidemia -Atorvastatin 40 mg po qhs Asthma -Stable DVT prophylaxis: Pt ambulatory, will be on Plavix and aspirin, no other AC needed at this time. Thank you for the consult. Hospitalist team will continue to follow. This note was transcribed by milan PUENTES . I, Dr. Kate Aquino personally performed the history, physical exam, and medical decision making; and confirmed the accuracy of the information in the transcribed note. Authenticated by Dr. Kate Aquino on 12/25/16 at 14:22. Discussed Condition With Patient, nursing staff and Dr. Weir. Hilario Gary Jr. Dec 25, 2016 14:28 Kate Aquino MD Dec 26, 2016 15:33
[2016-12-25] MEDS: ATORVASTATIN 40 MG TAB PO SCH (20:39)
[2016-12-25] MEDS: METOPROLOL TARTRATE 25 MG TAB PO SCH (20:40)
[2016-12-25 21:00] VITALS: BP 127/70; PULSE 70; RESP 16; TEMP 98; O2SAT 98
[2016-12-25] MEDS: ACETAMINOPHEN 325 MG TAB PO PRN (21:51)
[2016-12-26 06:05] VITALS: BP 132/86; PULSE 77; RESP 18; TEMP 97.5; O2SAT 99
[2016-12-26] MEDS: CLOPIDOGREL 75 MG TAB PO SCH (08:48)
[2016-12-26] MEDS: ASPIRIN 81 MG CHEW TAB PO SCH (08:48)
[2016-12-26] MEDS: METOPROLOL TARTRATE 25 MG TAB PO SCH ×2 (08:48→21:07)
[2016-12-26] MEDS: amLODIPine BESYLATE 5 MG TAB PO SCH (08:48)
[2016-12-26 09:08] LABS: ANION GAP 6 MEQ/L (5-15); AST (GOT) 9 U/L (15-37); BICARBONATE 28.2 MEQ/L (21.0-32.0); BLOOD UREA NITROGEN 18 MG/DL (7-18); CHLORIDE 104 MEQ/L (98-107); GLOMERULAR FILTRATION RATE 90 ML/MIN (>89); POTASSIUM 4.2 MEQ/L (3.5-5.1); SODIUM (NA) 138 MEQ/L (136-145)
[2016-12-26 09:35] LABS: ALKALINE PHOSPHATASE 91 U/L (45-117); ALT (GPT) 14 U/L (12-78); HDL CHOLESTEROL 38.9 MG/DL (40.0-60.0); LDL CHOLESTEROL 116 MG/DL (0-99); TOTAL BILIRUBIN ADULT 0.6 MG/DL (0.2-1.0)
--- NOTE | 2016-12-26 10:20 | HHI.PYPN ---
Subjective Remarks Patient seen and examined with counselor and nurse. Chart reviewed. Case d/w RN. No behavioral issues overnight. On my exam, patient reports that he found some Seroquel tablets on the ground outside of his home near the mailbox. He had been having trouble sleeping, in part because his electric is out and he has no A/C. He was going to return the pills to their dip tube assembler machine, but instead he decided to take a few to see if he could get some sleep. He adamantly denies that this was a suicide attempt and denies any suicidal ideation, intent or plan now. He does admit to feeling somewhat dysphoric and depressed related to his psychosocial situation. Money is apparently quite tight and he is at risk for losing his house. He says that he cannot file for disability at because the requisite time has not elapsed since he last worked. No hypomanic or manic symptoms. No psychotic symptoms. He reports a history of overdose on aspirin at age 18 but denies any other history of self-harm. He endorses occasional cannabis use but denies any other substance use. He says that he has tried trazodone in the past for the sleep difficulty at a dose of 150 mg without much benefit. He does endorse a history of syncope/presyncope. Review of Systems Except as stated in HPI: all other systems reviewed are Neg Objective Alert: Yes [place]: Person, Place, Date Mood: Depressed (reportedly mild) Affect: Appropriate Memory Intact: Comment (impact on clinical exam) Hallucinations: Other (no AVH) Delusions: No Delusion Type: Other (no delusions elicited) Suicidal: Ideation (denies SI, intent or plan) Homicidal: Ideation (no HI) Insight/Judgment Poor Remarks no motor abnormalities noted. Thought process linear. Grooming and hygiene fair. Speech within normal limits for rate, tone and volume. Labs Test 12/26/16 07:08 Sodium Level 138 MEQ/L Potassium Level 4.2 MEQ/L Chloride Level 104 MEQ/L Carbon Dioxide Level 28.2 MEQ/L Anion Gap 6 MEQ/L Blood Urea Nitrogen 18 MG/DL Creatinine 0.92 MG/DL Estimat Glomerular Filtration 90 ML/MIN Rate Random Glucose 89 MG/DL Calcium Level 9.1 MG/DL Total Bilirubin 0.6 MG/DL Aspartate Amino Transf 9 U/L (AST/SGOT) Alanine Aminotransferase 14 U/L (ALT/SGPT) Alkaline Phosphatase 91 U/L Total Protein 7.4 GM/DL Albumin 4.2 GM/DL Triglycerides Level 117 MG/DL Cholesterol Level 178 MG/DL LDL Cholesterol 116 MG/DL HDL Cholesterol 38.9 MG/DL Cholesterol/HDL Ratio 4.57 RATIO Vitamin B12 Level 578 PG/ML 25-Hydroxy Vitamin D Total 29.5 ng/ML Thyroid Stimulating Hormone 0.566 uIU/ML 3rd Gen Labs reviewed. Low vitamin D noted. Toxicology positive for cannabinoids. Vitals/IOs Vital Signs Date Time Temp Pulse Resp B/P Pulse Ox O2 Delivery O2 Flow Rate FiO2 12/26/16 06:05 97.5 77 18 132/86 99 12/25/16 11:51 Room Air Assessment & Plan Problem List: (1) Adjustment disorder ICD Code: F43.20 (2) Cannabis abuse ICD Code: F12.10 Assessment & Plan Possible Seroquel OD. Patient told ED provider this was a suicidal OD but is denying it now. Denies SI, intent, plan at this time. Remeron 15 mg at bedtime for mood and sleep. R/B/A discussed with patient. Vitamin D supplement. Hospitalist input noted and appreciated. Counselor to obtain collateral from patient's relation, Batsheva Campbell [phone], and the patient has given us consent to speak with her. Continue to monitor on the inpatient unit. Patient declining to sign voluntary, we will observe up to expiration of Pan act tomorrow. Justification for Cont. Inpt. Monitoring for impairments in safety. Medication changes. Discharge Planning Possible discharge tomorrow, Friday Request HC Surrog/Guard Advoc?: No Problem Qualifiers (1) Adjustment disorder: Qualified Code: F43.21 - Adjustment disorder with depressed mood Olegario Avila MD Dec 26, 2016 10:20
--- NOTE | 2016-12-26 15:38 | HHI.PR ---
Subjective Remarks The patient is in the recreational room. He appears in not acute distress. Denies chest pain or shortness of breath. No nausea, vomiting, diarrhea or constipation. Objective Vitals Vital Signs Date Time Temp Pulse Resp B/P Pulse Ox O2 Delivery O2 Flow Rate FiO2 12/26/16 06:05 97.5 77 18 132/86 99 12/25/16 21:00 98.0 70 16 127/70 98 Result Diagram: 12/24/16 1553 12/26/16 0708 Objective Remarks GENERAL: This is a well-nourished, well-developed patient, in no apparent distress. CARDIOVASCULAR: Regular rate and rhythm without murmurs, gallops, or rubs. RESPIRATORY: Clear to auscultation. Breath sounds equal bilaterally. No wheezes , rales, or rhonchi. GASTROINTESTINAL: Abdomen soft, non-tender, nondistended. No hepato- splenomegaly or guarding. MUSCULOSKELETAL: Extremities without clubbing, cyanosis, or edema. No joint tenderness, effusion, or edema noted. NEUROLOGICAL: Awake and alert. Cranial nerves II through XII intact. Motor and sensory grossly within normal limits. Five out of 5 muscle strength in all muscle groups. Speech clear and fluent. A/P Assessment and Plan Mr. Hays is 41 yo, with history of STEMI, stent placement (x5), hypertension, hyperlipidemia, asthma, hydrocephalus, syncope,migraine headaches , and asthma. Depression -treatment per primary team. Hypertension, uncontrolled. Monitor BP and adjust meds as indicated Amlodipine 5 mg po daily Started Metoprolol 12.5 mg po BID Aspirin 81 mg po daily Plavix 75 mg po dialy Hyperlipidemia -Atorvastatin 40 mg po qhs Asthma -Stable DVT prophylaxis: Pt ambulatory, will be on Plavix and aspirin, no other AC needed at this time. Thank you for the consult. Will continue to follow. Discussed Condition With Patient, nurse Kate Aquino MD Dec 26, 2016 15:38
[2016-12-26 16:40] LABS: HEMOGLOBIN A1a 1.2 %; HEMOGLOBIN A1b 1.7 %; HEMOGLOBIN Ao 85.1 %; HEMOGLOBIN LA1C 2.1 %; HEMOGLOBIN P3 3.8 %
[2016-12-26 18:15] VITALS: BP 132/81; PULSE 68; RESP 19; TEMP 97.9; O2SAT 100
[2016-12-26] MEDS ORDERED: MIRTAZAPINE 15 MG TAB PO SCH (21:00)
[2016-12-26] MEDS: ATORVASTATIN 40 MG TAB PO SCH (21:07)
[2016-12-27] MEDS: ACETAMINOPHEN 325 MG TAB PO PRN ×2 (03:46→08:27)
[2016-12-27 06:01] VITALS: BP 135/83; PULSE 67; RESP 18; TEMP 98.1; O2SAT 98
[2016-12-27] MEDS: CLOPIDOGREL 75 MG TAB PO SCH (08:28)
[2016-12-27] MEDS: amLODIPine BESYLATE 5 MG TAB PO SCH (08:28)
[2016-12-27] MEDS: METOPROLOL TARTRATE 25 MG TAB PO SCH (08:28)
[2016-12-27] MEDS: ASPIRIN 81 MG CHEW TAB PO SCH (08:28)
[2016-12-27] MEDS ORDERED: CHOLECALCIFEROL (VIT D3) 1000 UNIT TAB PO SCH (09:00)
[2016-12-27] MEDS ORDERED: METO25TA3 PO (10:01)
[2016-12-27] MEDS ORDERED: VITA1000 PO (10:01)
[2016-12-27] MEDS ORDERED: MIRTA15 PO (10:01)
--- NOTE | 2016-12-27 10:01 | HHI.DS ---
Psychiatry Discharge Summary Inpatient Psychiatric care?: Yes Advance Directive: No Mental Health AdvanceDirective: No Health Care Proxy: No Admission Admission Date Dec 25, 2016 at 09:54 Admission Diagnosis: (1) Moderately severe major depressive disorder, single episode ICD Code: F32.9 Brief History 41-year-old male with history of cardiac disease overdosed on approximately 11 300 mg Seroquel pills. Patient was Pan acted for suicidality by the emergency room physician here at [place]. He describes multiple symptoms of depression since his inability to work due to cardiac issues. He has depressed mood, anhedonia, anxiety about his lack of income, feelings of hopelessness and helplessness, markedly diminished self-esteem, decreased energy, sleep disturbance, etc. The patient is currently living with his 15-year-old son and 19-year-old son. However, there is a lack of income to support them and pay his bills. Patient states he has applied for Social Security disability but has been unable to obtain it, despite the fact that he can't work. This depression has been going on for greater than 6 months. Patient denies problems with alcohol or drug abuse. He denies having significant support or financial assistance from family. Tobacco Use In Past 30 Days: No Tobacco Past 30 Days Alcohol Use: Never Hospital Course Patient was admitted to a locked, inpatient psychiatric unit. A general medical consultation was obtained. Appropriate precautions were in place throughout patient's hospital stay. Patient was seen and examined daily on the unit by psychiatry and also visited by counselor. Psychotropic medications were adjusted. Patient had improvement in presenting psychiatric symptomatology. There has been no evidence of any suicidality or homicidality on the inpatient unit. Patient has been no behavioral issue on the unit. Counselor Mr. Nogueira has reached out to the patient's family and tells me that the family has no safety concerns about the patient returning home today. On the day of discharge: Patient seen and examined with counselor and nurse. Chart reviewed. Case discussed with nursing staff. Patient no behavioral problem overnight. On my examination today, the patient is requesting discharge from the inpatient psychiatric unit. He denies any suicidal or homicidal ideation, intent or plan on direct questioning and contracts for safety. Mood is improved versus admission. No severe depressive or hypomanic/ manic symptoms elicited. Sleep remains a little bit poor, but patient would like to give Remeron more of a try. Denies audiovisual hallucinations. No delusions elicited. Perhaps a mild headache from Remeron, although the patient notes he has chronic headaches and so he is not sure if this was medication related. No other side effects from medications. No other physical complaints. Weighing the acute, chronic, and protective factors and based on the available evidence, I sales operations to a reasonable degree medical certainty that the patient is at low imminent risk of harm to self or others from a mental illness as defined under the Pan act and his level of function is adequate for outpatient care. The patient does not meet criteria for involuntary psychiatric hospitalization at this time. Patient is to be discharged home today with psychiatric follow-up as arranged by counselor. Patient is also to follow-up with primary care. I have counseled the patient to abstain from drugs of abuse. I have counseled the patient regarding warning signs for need to return to the psychiatric emergency room as part of a general safety plan. Results Blood Pressure 135 / 83 Vital Signs Date Time Temp Pulse Resp B/P Pulse Ox O2 Delivery O2 Flow Rate FiO2 12/27/16 06:01 98.1 67 18 135/83 98 12/25/16 11:51 Room Air Laboratory Tests Test 12/24/16 12/24/16 12/24/16 12/26/16 15:53 17:00 17:05 07:08 Neutrophils (%) (Auto) 73.1 % (16.0-70.0) Chloride Level 108 MEQ/L (98-107) Estimat Glomerular Filtration 81 ML/MIN (>89) Rate Aspartate Amino Transf 10 U/L (15-37) 9 U/L (15-37) (AST/SGOT) Prothrombin Time 13.0 SEC (9.8-11.6) Acetaminophen Level LESS THAN 2.0 MCG/ML (10.0-30.0) Urine Cannabinoids Screen POS (NEG) LDL Cholesterol 116 MG/DL (0-99) HDL Cholesterol 38.9 MG/DL (40.0-60.0) 25-Hydroxy Vitamin D Total 29.5 ng/ML (30-100) Laboratory Results Test 12/26/16 07:08 Hemoglobin A1c 5.5 % (4.3-6.0) Triglycerides Level 117 MG/DL (42-150) Cholesterol Level 178 MG/DL (120-200) LDL Cholesterol 116 MG/DL (0-99) HDL Cholesterol 38.9 MG/DL (40.0-60.0) Summary of Procedures None done Imaging None done Pending results at discharge: No Medications # of Antipsychotic meds at D/C: 0 Approp Antipsych med options 1 - Minimum of three failed multiple trials of monotherapy. 2 - Documented plan to taper to monotherapy due to previous use of multiple meds OR cross-taper in progress at D/C. 3 - Documentation of augmentation of Clozapine. 4 - Justification other than those listed in allowable values 1-3, document here : Discharge Discharge Date: Dec 27, 2016 Discharge Diagnosis: (1) Adjustment disorder Diagnosis: Principal (improved) ICD Code: F43.20 (2) Cannabis abuse Diagnosis: Secondary (counseled to quit) ICD Code: F12.10 Mental Status Exam at Disch Patient is casually dressed. Patient is well groomed. Patient is awake and alert and oriented to person and hospital at least. No evidence of delirium. No motor abnormalities appreciated. Speech is within normal limits for rate, tone, volume. Language and fund of knowledge average. Memory grossly intact on clinical exam. Mood improved versus admission. Affect is full and reactive. Thought processes linear. No delusions elicited. Denies audiovisual hallucinations and does not appear internally stimulated. Denies suicidal or homicidal ideation, intent, or plan and contracts for safety. Insight and judgment seem fair to poor. Pt Condition on Discharge: Stable Discharge Disposition: Discharge Home Discharge Instructions Diet Instructions: As Tolerated, No Restrictions Activities you can perform: Weight Bearing as [place] Scheduled Appointment: as per counselor's notes New Medications: Cholecalciferol (D 1000) 1,000 Unit Tab 2000 UNITS PO DAILY Low vitamin D Days 15 Ref 1 TAB Metoprolol Tartrate (Metoprolol Tartrate) 25 Mg Tab 12.5 MG PO Q12HR Blood Pressure Management Days 3 Ref 1 TAB Mirtazapine (Mirtazapine) 15 Mg Tab 15 MG PO HS Mental Health Days 3 Ref 1 TAB Continued Medications: Amlodipine (Norvasc) 5 Mg Tab 5 MG PO DAILY htn/cp #30 Ref 1 TAB Atorvastatin (Lipitor) 40 Mg Tab 40 MG PO HS cad #30 Ref 11 TAB Clopidogrel (Plavix) 75 Mg Tab 75 MG PO DAILY cad Days 30 Ref 11 TAB Nitroglycerin SL (Nitroglycerin SL) 0.4 Mg Subl 0.4 MG SL DIRECTED ONE TABLET UNDER THE TONGUE NEEDED FOR CHEST PAIN, MAY REPEAT EVERY FIVE MINUTES FOR A TOTAL OF 3 DOSES OR CALL 911 IF NO RELIEF PRN CHEST PAIN #60 Ref 0 TAB.SL ([Aspirin Chew]) 81 MG CHEW 81 MG PO DAILY #30 TAB.CHEW Discontinued Medications: Trazodone (Trazodone) 150 Mg Tablet 150 MG PO HS Control Depression #30 Ref 0 TAB Discharge Time <= 30 minutes Discharge/Advance Care Plan Health Problems: (1) Adjustment disorder (2) Cannabis abuse Goals to promote your health * To prevent worsening of your condition and complications * To maintain your health at the optimal level Directions to meet your goals Take your medications as prescribed Follow your dietary instruction Follow activity as directed Keep your appointments as scheduled Take your immunizations and boosters as scheduled If your symptoms worsen call your PCP, if no PCP go to Urgent Care Center or Emergency Room For 09/12 questions related to your inpatient stay or results of tests pending at discharge, please contact Dr. Olegario Avila at Smoking is Dangerous to Your Health. Avoid second hand smoking Problem Qualifiers (1) Adjustment disorder: Qualified Code: F43.21 - Adjustment disorder with depressed mood Olegario Avila MD Dec 27, 2016 10:01
--- NOTE | 2016-12-27 15:19 | EKG ---
Date Performed: 12/26/2016 Time Performed: 09:35:35 PTAGE: 41 years EKG: Sinus rhythm BORDERLINE LEFT AXIS DEVIATION Slight ST change compatible with early repolarization Compared to pre vious tracing, the early repolarization changes are slightly more prominent BORDERLINE ECG PREVIOUS TRACING : 12/24/2016 15.04 DOCTOR: Rolf Jaramillo Interpretating Date/Time 12/27/2016 15:17:16
== END 2016-12-27 13:10 | disposition home or self-care (01) | DRG 882 ==
LOC: NEDAMB 14:55 → NEDA 12-25 09:54 → H270 12-25 11:45
PROVIDERS: ADMIT Psychiatry & Neurology Psychiatry; ATTEND Psychiatry & Neurology Psychiatry
DX: F43.20 Adjustment disorder, unspecified (principal); F12.10 Cannabis abuse, uncomplicated; I25.10 Atherosclerotic heart disease of native coronary artery without angina pectoris; I25.2 Old myocardial infarction; I10 Essential (primary) hypertension; Z95.5 Presence of coronary angioplasty implant and graft; J45.909 Unspecified asthma, uncomplicated; E78.5 Hyperlipidemia, unspecified; G43.909 Migraine, unspecified, not intractable, without status migrainosus; F17.210 Nicotine dependence, cigarettes, uncomplicated; T43.592A Poisoning by other antipsychotics and neuroleptics, intentional self-harm, initial encounter
CPT/HCPCS: 80053; 80061; 80307; 82306; 82607; 83036; 84443; 85025; 85610; 85730; 93005

== ENCOUNTER 2017-02-25 21:17 | Observation (INO) | payer OTHER ==
[~2017-02-25 21:17] MED LIST changes: -ISOS30TA3 PO; +METO25TA3 PO; +MIRTA15 PO; +VITA1000 PO
[2017-02-25 21:19] VITALS: BP 152/91; PULSE 80; RESP 18; TEMP 98.6; O2SAT 99
[2017-02-25] MEDS ORDERED: GABA300C5 PO (21:31)
[2017-02-25] MEDS ORDERED: LURA40 PO (21:31)
[2017-02-25] MEDS ORDERED: DOXE10CA PO (21:32)
[2017-02-25 21:33] VITALS: BP_SYST 149; BP_SYST 156; BP_DIAS 78; BP_DIAS 88; PULSE 76; RESP 18; O2SAT 98; O2SAT 99
[2017-02-25 21:44] LABS: AUTOMATED NEUTROPHIL # 6.5 TH/MM3 (1.8-7.7); BASOPHIL # 0.1 TH/MM3 (0-0.2); BASOPHIL % 0.9 % (0.0-2.0); EOSINOPHIL # 0.2 TH/MM3 (0-0.4); EOSINOPHIL % 1.5 % (0.0-4.0); HEMATOCRIT 43.1 % (39.0-51.0); HEMO FLAGS DIFF FINAL; LYMPH % 29.9 % (9.0-44.0); LYMPHOCYTE # 3.3 TH/MM3 (1.0-4.8); MEAN CELL VOLUME 95.7 FL (80.0-100.0); MEAN CORPUSCULAR HEMOGLOBIN 32.1 PG (27.0-34.0); MEAN CORPUSCULAR HGB CONC 33.5 % (32.0-36.0); MONO % 8.4 % (0.0-8.0); NEUT % 59.3 % (16.0-70.0); PLATELET COUNT 269 TH/MM3 (150-450); RED CELL DISTRIBUTION WIDTH 13.4 % (11.6-17.2)
[2017-02-25] MEDS ORDERED: MORPHINE SULFATE 4 MG/ML INJ IV PUSH ONE (21:45)
[2017-02-25] MEDS ORDERED: ONDANSETRON HCL 4 MG/2 ML VIAL IV PUSH ONE (21:45)
[2017-02-25] MEDS ORDERED: PANTOPRAZOLE SODIUM 40 MG VIAL IV PUSH ONE (21:45)
--- NOTE | 2017-02-25 21:47 | PD ---
HPI Chief Complaint: Chest Pain Time Seen by Provider: 21:30 Travel History International Travel<30 days: No Contact w/Intl Traveler<30days: No Traveled to known affect area: No History of Present Illness HPI This is a 41-year-old male with history of coronary artery disease, stents, hypertension, hyperlipidemia, tobacco use, presents for evaluation of chest pain , nausea and vomiting. He reports that symptoms started this morning as a left- sided chest pain that radiates into the lower parts of his chest. He reports that the pain has been constant since this morning, describes it as a "gouging" type of pain with no aggravating or alleviating factors. He endorses approximate 4 episodes of nausea and vomiting that today. He reports that his first 2 episodes of vomiting looked like "coffee grounds." He has been experiencing some epigastric pains over the past few days. He denies alcohol use. He is on Plavix and aspirin which she has been taking daily, he took 4 baby aspirin today. Endorses some dyspnea. Denies cough or congestion, fevers or chills, flank pain, calf swelling. He reports that he recently got an appointment with a new straight ruling machine operator, Dr. Rubin, which coincidentally was scheduled for tomorrow. He has no other complaints at this time. PFSH Past Medical History Hx Anticoagulant Therapy: Yes (Aspirn) Asthma: Yes Blood Disorders: No Anxiety: Yes Depression: Yes Heart Rhythm Problems: No Cancer: No Cardiac Catheterization: Yes (stent x5) Cardiovascular Problems: Yes (CAD, HTN, Stent x5, NC) High Cholesterol: Yes Chest Pain: Yes Congestive Heart Failure: No COPD: No Coronary Artery Disease: Yes Diminished Hearing: No Endocrine: No Gastrointestinal Disorders: No Genitourinary: No Headaches: No Hypertension: Yes Immune Disorder: No Implanted Vascular Access Dvce: Yes Musculoskeletal: No Neurologic: Yes (HYDROCEPHALUS, Syncope) Psychiatric: Yes (Hx of depression and anxiety) Reproductive: No Respiratory: Yes (Asthma) Migraines: Yes Myocardial Infarction: Yes Sleep Apnea: Yes Tetanus Vaccination: Unknown Influenza Vaccination: No Past Surgical History Body Medical Devices: STENTS Cardiac Surgery: Yes Neurologic Surgery: Yes (shunt for hydrocephalus and removal) Other Surgery: Yes (CATH, STENTSX4, SHUNT) Family History Family Myocardial Infarction: Yes Social History Alcohol Use: No Tobacco Use: Yes Substance Use: Yes Allergies-Medications (Allergen,Severity, Reaction): Coded Allergies: No Known Allergies (Unverified , 02/25/17) Reported Meds & Prescriptions Reported Meds & Active Scripts Active D 1000 (Cholecalciferol) 1,000 Unit Tab 2,000 Units PO DAILY 15 Days Norvasc (Amlodipine Besylate) 5 Mg Tab 5 Mg PO DAILY Lipitor (Atorvastatin Calcium) 40 Mg Tab 40 Mg PO HS Plavix (Clopidogrel Bisulfate) 75 Mg Tab 75 Mg PO DAILY 30 Days Nitroglycerin SL (Nitroglycerin) 0.4 Mg Subl 0.4 Mg SL DIRECTED PRN ONE TABLET UNDER THE TONGUE NEEDED FOR CHEST PAIN, MAY REPEAT EVERY FIVE MINUTES FOR A TOTAL OF 3 DOSES OR CALL 911 IF NO RELIEF [Aspirin Chew] 81 MG Chew 81 Mg PO DAILY Reported Doxepin (Doxepin HCl) 10 Mg Cap 10 Mg PO HS Latuda (Lurasidone) 40 Mg Tab 40 Mg PO DAILY Gabapentin 300 Mg Cap 300 Mg PO TID Review of Systems Except as stated in HPI: all other systems reviewed are Neg Physical Exam Narrative GENERAL: Well-developed well-nourished male who appears mildly uncomfortable on initial examination. His vital signs have been reviewed. SKIN: Warm and dry. HEAD: Atraumatic. Normocephalic. EYES: Pupils equal and round. No scleral icterus. No injection or drainage. ENT: No nasal bleeding or discharge. Mucous membranes pink and moist. NECK: Trachea midline. No JVD. CARDIOVASCULAR: Regular rate and rhythm. No murmur appreciated. RESPIRATORY: No accessory muscle use. Clear to auscultation. Breath sounds equal bilaterally. No crackles no wheezing or rhonchi GASTROINTESTINAL: Abdomen soft, mild epigastric and left upper quadrant tenderness without guarding. MUSCULOSKELETAL: No obvious deformities. No clubbing. No cyanosis. No edema. NEUROLOGICAL: Awake and alert. No obvious cranial nerve deficits. Motor grossly within normal limits. Normal speech. PSYCHIATRIC: Appropriate mood and affect; insight and judgment normal. Data Data Last Documented VS Vital Signs Date Time Temp Pulse Resp B/P (MAP) Pulse Ox O2 Delivery O2 Flow Rate FiO2 02/25/17 21:33 98 Room Air 02/25/17 21:33 76 18 02/25/17 21:19 98.6 Orders Orders Electrocardiogram (02/25/17 21:29) Complete Blood Count With Diff (02/25/17 21:29) Basic Metabolic Panel (Bmp) (02/25/17 21:29) Ckmb (Isoenzyme) Profile (02/25/17 21:29) Troponin I (02/25/17 21:29) Chest, Single Ap (02/25/17 21:29) Iv Access Insert/Monitor (02/25/17 21:29) Ecg Monitoring (02/25/17 21:29) Oxygen Administration (02/25/17:29) Oximetry (02/25/17:29) Hepatic Functional Panel (02/25/17 21:38) Lipase (02/25/17 21:38) Act Partial Throm Time (Ptt) (02/25/17:38) Prothrombin Time / Inr (Pt) (02/25/17 21:38) Bilateral Bp Monitoring (02/25/17:38) Morphine Inj (Morphine Inj) (02/25/17 21:45) Ondansetron Inj (Zofran Inj) (02/25/17 21:45) Pantoprazole Inj (Protonix Inj) (02/25/17 21:45) Ct Abd/Pel W Iv Contrast(Rout) (02/25/17 21:47) Nitroglycerin Sl (Nitrostat Sl) (02/25/17 22:15) CKMB (02/25/17 21:30) CKMB% (02/25/17 21:30) Labs Laboratory Tests Test 02/25/17 21:30 02/25/17 21:48 White Blood Count 11.0 TH/MM3 Red Blood Count 4.50 MIL/MM3 Hemoglobin 14.4 GM/DL Hematocrit 43.1 % Mean Corpuscular Volume 95.7 FL Mean Corpuscular Hemoglobin 32.1 PG Mean Corpuscular Hemoglobin Concent 33.5 % Red Cell Distribution Width 13.4 % Platelet Count 269 TH/MM3 Mean Platelet Volume 8.1 FL Neutrophils (%) (Auto) 59.3 % Lymphocytes (%) (Auto) 29.9 % Monocytes (%) (Auto) 8.4 % Eosinophils (%) (Auto) 1.5 % Basophils (%) (Auto) 0.9 % Neutrophils # (Auto) 6.5 TH/MM3 Lymphocytes # (Auto) 3.3 TH/MM3 Monocytes # (Auto) 0.9 TH/MM3 Eosinophils # (Auto) 0.2 TH/MM3 Basophils # (Auto) 0.1 TH/MM3 CBC Comment DIFF FINAL Differential Comment Blood Urea Nitrogen 10 MG/DL Creatinine 0.85 MG/DL Random Glucose 91 MG/DL Calcium Level 9.2 MG/DL Sodium Level 137 MEQ/L Potassium Level 3.4 MEQ/L Chloride Level 103 MEQ/L Carbon Dioxide Level 26.3 MEQ/L Anion Gap 8 MEQ/L Estimat Glomerular Filtration Rate 99 ML/MIN Total Bilirubin 0.4 MG/DL Direct Bilirubin 0.1 MG/DL Indirect Bilirubin 0.3 MG/DL Aspartate Amino Transf (AST/SGOT) 13 U/L Alanine Aminotransferase (ALT/SGPT) 17 U/L Alkaline Phosphatase 105 U/L Total Creatine Kinase 124 U/L Creatine Kinase MB 0.8 NG/ML Troponin I LESS THAN 0.02 NG/ML Total Protein 7.7 GM/DL Albumin 4.6 GM/DL Lipase 168 U/L Prothrombin Time 11.8 SEC Prothromb Time International Ratio 1.1 RATIO Activated Partial Thromboplast Time 31.8 SEC MDM Medical Decision Making Medical Screen Exam Complete: Yes Emergency Medical Condition: Yes Medical Record Reviewed: Yes Differential Diagnosis Angina, acute coronary syndrome, peptic ulcer disease, gastritis, pancreatitis, upper GI bleed, pericarditis, myocarditis, pneumothorax Narrative Course The patient was placed on ECG monitor and pulse oximetry. A 12-lead EKG was obtained. Plan is for basic lab work, chest x-ray, CT abdomen and pelvis. He was given morphine, Zofran, Protonix, sublingual nitroglycerin with some improvement of his chest pain. He did have a positive Hemoccult, brown stool. He has had no additional episodes of emesis during his initial evaluation. 2300: At the end of my shift the patient signed out pending CT abdomen and pelvis imaging. [facility] Point of Care Internal Pos. & Neg. Controls: Passed Fecal Specimen Occult Blood: Positive Dinh Bradley Feb 25, 2017 21:47
--- NOTE | 2017-02-25 21:50 | RADRPT ---
EXAM DATE/TIME: 02/25/2017 21:38 [facility] COMPARISON: CHEST SINGLE AP, December 20, 2016, 22:31. INDICATIONS : Chest pain. MEDICAL HISTORY : CAD SURGICAL HISTORY : Coronary artery stent. ENCOUNTER: Initial ACUITY: 1 day PAIN SCORE: 9/10 LOCATION: Bilateral chest FINDINGS: A single view of the chest demonstrates the lungs to be symmetrically aerated without evidence of mas s, infiltrate or effusion. The cardiomediastinal contours are unremarkable. Osseous structures are intact. CONCLUSION: No acute disease. No significant change has occurred. Gera Smith MD on February 25, 2017 at 21:49 Board Certified Radiologist. This report was verified electronically.
[2017-02-25 22:12] LABS: ANION GAP 8 MEQ/L (5-15); BICARBONATE 26.3 MEQ/L (21.0-32.0); BLOOD UREA NITROGEN 10 MG/DL (7-18); CHLORIDE 103 MEQ/L (98-107); GLOMERULAR FILTRATION RATE 99 ML/MIN (>89); POTASSIUM 3.4 MEQ/L (3.5-5.1); SODIUM (NA) 137 MEQ/L (136-145)
[2017-02-25 22:16] LABS: CREATINE KINASE 124 U/L (39-308)
[2017-02-25 22:20] LABS: INTERNATIONAL NORMALIZED RATIO 1.1 RATIO; PROTHROMBIN TIME - PATIENT 11.8 SEC (9.8-11.6)
[2017-02-25 22:21] LABS: APTT (PATIENT) 31.8 SEC (24.3-30.1)
[2017-02-25] MEDS: NITROGLYCERIN 0.4 MG SL 25 TABS/BTL SL SCH ×2 (22:25→22:46)
[2017-02-25 22:30] LABS: CKMB 0.8 NG/ML (0.5-3.6)
[2017-02-25 22:33] LABS: INDIRECT BILIRUBIN 0.3 MG/DL (0.0-0.8); TOTAL BILIRUBIN ADULT 0.4 MG/DL (0.2-1.0)
--- NOTE | 2017-02-25 23:05 | PD ---
Data Data Last Documented VS Vital Signs Date Time Temp Pulse Resp B/P (MAP) Pulse Ox O2 Delivery O2 Flow Rate FiO2 02/25/17 21:33 98 Room Air 02/25/17 21:33 76 18 02/25/17 21:19 98.6 Orders Orders Electrocardiogram (02/25/17 21:29) Complete Blood Count With Diff (02/25/17 21:29) Basic Metabolic Panel (Bmp) (02/25/17 21:29) Ckmb (Isoenzyme) Profile (02/25/17 21:29) Troponin I (02/25/17 21:29) Chest, Single Ap (02/25/17 21:29) Iv Access Insert/Monitor (02/25/17:29) Ecg Monitoring (02/25/17:) Oxygen Administration (02/25/17:) Oximetry (02/25/17:29) Hepatic Functional Panel (02/25/17 21:38) Lipase (02/25/17 21:38) Act Partial Throm Time (Ptt) (02/25/17 21:38) Prothrombin Time / Inr (Pt) (02/25/17 21:38) Bilateral Bp Monitoring (02/25/17 21:38) Morphine Inj (Morphine Inj) (02/25/17 21:45) Ondansetron Inj (Zofran Inj) (02/25/17 21:45) Pantoprazole Inj (Protonix Inj) (02/25/17 21:45) Ct Abd/Pel W Iv Contrast(Rout) (02/25/17 21:47) Nitroglycerin Sl (Nitrostat Sl) (02/25/17 22:15) CKMB (02/25/17 21:30) CKMB% (02/25/17 21:30) Iohexol 350 Inj (Omnipaque 350 Inj) (02/25/17 23:09) Admit Order (Ed Use Only) (02/26/17 00:48) Place In Observation (02/26/17 ) Vital Signs (Adult) Q4H (02/26/17 01:01) Activity Oob With Assistance (02/26/17 01:01) Attractions Associate / Telemetry .CONTINUOUS (02/26/17 01:01) Diet Npo (02/26/17 Breakfast) Sodium Chloride 0.9% Flush (Ns Flush) (02/26/17 01:15) Sodium Chloride 0.9% Flush (Ns Flush) (02/26/17 09:00) Basic Metabolic Panel (Bmp) (02/27/17 06:00) Complete Blood Count With Diff (02/27/17 06:00) Naloxone Inj (Narcan Inj) (02/26/17 01:15) Labs Laboratory Tests Test 02/25/17 21:30 02/25/17 21:48 White Blood Count 11.0 TH/MM3 Red Blood Count 4.50 MIL/MM3 Hemoglobin 14.4 GM/DL Hematocrit 43.1 % Mean Corpuscular Volume 95.7 FL Mean Corpuscular Hemoglobin 32.1 PG Mean Corpuscular Hemoglobin Concent 33.5 % Red Cell Distribution Width 13.4 % Platelet Count 269 TH/MM3 Mean Platelet Volume 8.1 FL Neutrophils (%) (Auto) 59.3 % Lymphocytes (%) (Auto) 29.9 % Monocytes (%) (Auto) 8.4 % Eosinophils (%) (Auto) 1.5 % Basophils (%) (Auto) 0.9 % Neutrophils # (Auto) 6.5 TH/MM3 Lymphocytes # (Auto) 3.3 TH/MM3 Monocytes # (Auto) 0.9 TH/MM3 Eosinophils # (Auto) 0.2 TH/MM3 Basophils # (Auto) 0.1 TH/MM3 CBC Comment DIFF FINAL Differential Comment Blood Urea Nitrogen 10 MG/DL Creatinine 0.85 MG/DL Random Glucose 91 MG/DL Calcium Level 9.2 MG/DL Sodium Level 137 MEQ/L Potassium Level 3.4 MEQ/L Chloride Level 103 MEQ/L Carbon Dioxide Level 26.3 MEQ/L Anion Gap 8 MEQ/L Estimat Glomerular Filtration Rate 99 ML/MIN Total Bilirubin 0.4 MG/DL Direct Bilirubin 0.1 MG/DL Indirect Bilirubin 0.3 MG/DL Aspartate Amino Transf (AST/SGOT) 13 U/L Alanine Aminotransferase (ALT/SGPT) 17 U/L Alkaline Phosphatase 105 U/L Total Creatine Kinase 124 U/L Creatine Kinase MB 0.8 NG/ML Troponin I LESS THAN 0.02 NG/ML Total Protein 7.7 GM/DL Albumin 4.6 GM/DL Lipase 168 U/L Prothrombin Time 11.8 SEC Prothromb Time International Ratio 1.1 RATIO Activated Partial Thromboplast Time 31.8 SEC [facility] Medical Record Reviewed: Yes Supervised Visit with ELIDIA: No Interpretation(s) Last Impressions Abdomen/Pelvis CT 02/25/172146 Signed Impressions: Service Date/Time: Saturday, February 25, 2017 23:06 - CONCLUSION: No acute CT findings in the abdomen or pelvis. Goldy Grover MD Chest X-Ray 02/25/172128 Signed Impressions: Service Date/Time: Saturday, February 25, 2017 21:38 - CONCLUSION: No acute disease. No significant change has occurred. Gera Smith MD Narrative Course During the course of the patients emergency department visit, the patients history, examination, and differential diagnosis were reviewed with the patient. The patient had IV access obtained and blood work sent for analysis. The patient was placed on a technology education teacher with oximetry and blood pressure monitoring. The patient was initially seen by Dinh. Please see his complete history and physical. The patient's case was checked out to me by him at the conclusion of his shift. The patient had reported having chest pain, nausea and vomiting 4 of coffee ground emesis, Hemoccult testing of his stool was positive. The patient is pending conclusion of his workup with a CT scan of the abdomen and pelvis. The patient was initially provided Protonix 40 mg IV, morphine for pain, Zofran for nausea, sublingual nitroglycerin every 5 minutes 3 for chest pain. The patients laboratory studies were reviewed and remarkable for a CBC that is unremarkable, basic metabolic profile is unremarkable, LFTs within normal limits , initial set of cardiac enzymes are negative, lipase 168, PT 11.8, PTT 31.8 Radiology studies were reviewed and remarkable for a chest x-ray that shows no acute cardiopulmonary disease, CT scan of the abdomen and pelvis shows no acute abnormality. The patients results were discussed with the patient, including the plan of care. I explained that further testing and/ or monitoring is indicated based on the patients history, examination, and/ or laboratory findings. Therefore, I recommended admission for additional evaluation. The patient expressed understanding and was agreeable with this plan. The patient was admitted to the hospital in stable condition and sent to a bed under the care of the [facility] service per Physician Communication Physician Communication The patient's case was discussed with Dr. Seals who did agree to admit the patient for further evaluation and treatment at this time Diagnosis Primary Impression: Coffee ground emesis Additional Impressions: GI bleed Qualified Codes: K92.2 - Gastrointestinal hemorrhage, unspecified Chest pain, rule out acute myocardial infarction Admitting Information Admitting Physician Requests: Admit Kristan Garrison MD Feb 25, 2017 23:05
[2017-02-25] MEDS ORDERED: IOHEXOL 350 MG/ML 10 ML VIAL (for RAD DIAG) IVCONTRAST ONE (23:09)
--- NOTE | 2017-02-26 00:24 | RADRPT ---
EXAM DATE/TIME: 02/25/2017 23:06 [place] COMPARISON: No previous studies available for comparison. INDICATIONS : Left sided abdominal pain radiating towards medial. IV CONTRAST: 96 cc Omnipaque 350 (iohexol) IV ORAL CONTRAST: No oral contrast ingested. RADIATION DOSE: 6.74 CTDIvol (mGy) MEDICAL HISTORY : Cardiovascular disease. Myocardial infarction. Hypertension.Coronary artery disease. SURGICAL HISTORY : Cardiac catherization. Cardiac Stents. ENCOUNTER: Initial ACUITY: 1 day PAIN SCALE: 4/10 LOCATION: Left abdomen TECHNIQUE: Volumetric scanning of the abdomen and pelvis was performed. Using automated exposure control and ad justment of the mA and/or kV according to patient size, radiation dose was kept as low as reasonably achievable to obtain optimal diagnostic quality images. DICOM format image data is available electro nically for review and comparison. FINDINGS: LOWER LUNGS: The visualized lower lungs are clear. LIVER: Homogeneous density without lesion. There is no dilation of the biliary tree. No calcified gallston es. SPLEEN: Normal size without lesion. PANCREAS: Within normal limits. KIDNEYS: Tiny lateral midpole cyst of the right. No suspicious mass, stone or hydronephrosis. ADRENAL GLANDS: Within normal limits. VASCULAR: Fairly prominent atherosclerotic calcifications for a patient of this age. No evidence of aneurysm. N o major vessel occlusion. BOWEL/MESENTERY: The stomach, small bowel, and colon demonstrate no acute abnormality. There is no free intraperitone al air or fluid. ABDOMINAL WALL: Within normal limits. RETROPERITONEUM: There is no lymphadenopathy. BLADDER: No wall thickening or mass. REPRODUCTIVE: Within normal limits. INGUINAL: There is no lymphadenopathy or hernia. MUSCULOSKELETAL: Within normal limits for patient age. CONCLUSION: No acute CT findings in the abdomen or pelvis. Goldy Grover MD on February 26, 2017 at 0:17 Board Certified Radiologist. This report was verified electronically.
[2017-02-26] MEDS ORDERED: SODIUM CHLORIDE 0.9% FLUSH 10 ML FLUSH IV FLUSH PRN (01:15)
[2017-02-26] MEDS ORDERED: NALOXONE HCL 0.4 MG/ML AMP IV PUSH PRN (01:15)
[2017-02-26] MEDS ORDERED: POTASSIUM CHLORIDE 20 MEQ CONTROLLED RELEASE TAB PO ONE (01:15)
--- NOTE | 2017-02-26 02:02 | HHI.HP ---
[facility] Unknown Admission Diagnosis Coffee ground emesis, cp r/o [place] Diagnoses: Chief Complaint: N/V and chest pain Travel History International Travel<30 Days: No Contact w/Intl Traveler <30 Da: No Traveled to Known Affected Are: No History of Present Illness Written by IDANE Long acting as scribe for [Arnel] on 02/26/17 at 01: 51. 41 y/o male with a history of CAD with stent placement, HTN, major depressive disorder, anxiety and HLD presented to the ED with complaints of nausea, vomiting and chest pain. He states he vomited last night twice coffee ground in color and then developed Left sided Chest pain that radiates to rib cage. He states today he continued to feel worse and he was nauseous, light headed and epigastric pain. He complains of black stools and constipation today. He states he always has chest pain but this was different than normal.He states he does have a cough with yellow sputum production but states this occurs when he smokes. He states he has been having dizziness and passing out frequently at home, and his son would find him, and he says he was shaking when he is found. Confused when he woke up, no tongue bitting or loss of urine or bowel. He states the only change in medication he has had is 2 weeks ago he was started on Gabapentin 300mg TID. Last Echo October 2016 was normal with EF 60-65% EEG in October 2016 was normal Review of Systems Except as stated in HPI: all other systems reviewed are Neg Past Family Social History Past Medical History CAD with stent placement Major depressive disorder Anxiety HLD HTN Past Surgical History Heart stents Reported Medications Reported Meds & Active Scripts Active D 1000 (Cholecalciferol) 1,000 Unit Tab 2,000 Units PO DAILY 15 Days Norvasc (Amlodipine Besylate) 5 Mg Tab 5 Mg PO DAILY Lipitor (Atorvastatin Calcium) 40 Mg Tab 40 Mg PO HS Plavix (Clopidogrel Bisulfate) 75 Mg Tab 75 Mg PO DAILY 30 Days Nitroglycerin SL (Nitroglycerin) 0.4 Mg Subl 0.4 Mg SL DIRECTED PRN ONE TABLET UNDER THE TONGUE NEEDED FOR CHEST PAIN, MAY REPEAT EVERY FIVE MINUTES FOR A TOTAL OF 3 DOSES OR CALL 911 IF NO RELIEF [Aspirin Chew] 81 MG Chew 81 Mg PO DAILY Reported Doxepin (Doxepin HCl) 10 Mg Cap 10 Mg PO HS Latuda (Lurasidone) 40 Mg Tab 40 Mg PO DAILY Gabapentin 300 Mg Cap 300 Mg PO TID Allergies: Coded Allergies: No Known Allergies (Unverified , 02/25/17) Active Ordered Medications Current Medications Medications (Trade) Dose Ordered Sig/Frantz Route Start Time Stop Time Status Last Admin (NS Flush) 2 ml UNSCH PRN IV FLUSH 02/26/17 01:15 (NS Flush) 2 ml BID IV FLUSH 02/26/17 09:00 (Narcan Inj) 0.4 mg UNSCH PRN IV PUSH 02/26/17 01:15 Family History Family history significant for Heart disease and cancer Social History Tobacco use: A few times a week out of a pipe Alcohol use: Denies Illicit drug use: Marijuana Physical Exam Vital Signs Vital Signs Date Time Temp Pulse Resp B/P (MAP) Pulse Ox O2 Delivery O2 Flow Rate FiO2 02/25/17 21:33 98 Room Air 02/25/17 21:33 98 Room Air 02/25/17 21:33 76 18 149/88 (108) 99 Room Air 156/78 (104) 02/25/17 21:19 98.6 80 18 152/91 (111) 99 Room Air Physical Exam GENERAL: This is a well-nourished, thin patient, in no apparent distress. SKIN: No rashes, ecchymoses or lesions. Cool and dry. HEAD: Atraumatic. Normocephalic. EYES: Pupils equal round and reactive. ENT: Nose without bleeding, purulent drainage or septal hematoma. Airway patent. NECK: Trachea midline. No JVD or lymphadenopathy. CARDIOVASCULAR: Regular rate and rhythm without murmurs, gallops, or rubs. RESPIRATORY: Clear to auscultation. Breath sounds equal bilaterally. No wheezes , rales, or rhonchi. GASTROINTESTINAL: Abdomen soft, epigastric tenderness, nondistended. MUSCULOSKELETAL: Extremities without clubbing, cyanosis, or edema. No calf tenderness. NEUROLOGICAL: Awake and alert. Motor and sensory grossly within normal limits. Normal speech. Laboratory Laboratory Tests Test 02/25/17 21:30 02/25/17 21:48 White Blood Count 11.0 Red Blood Count 4.50 Hemoglobin 14.4 Hematocrit 43.1 Mean Corpuscular Volume 95.7 Mean Corpuscular Hemoglobin 32.1 Mean Corpuscular Hemoglobin Concent 33.5 Red Cell Distribution Width 13.4 Platelet Count 269 Mean Platelet Volume 8.1 Neutrophils (%) (Auto) 59.3 Lymphocytes (%) (Auto) 29.9 Monocytes (%) (Auto) 8.4 Eosinophils (%) (Auto) 1.5 Basophils (%) (Auto) 0.9 Neutrophils # (Auto) 6.5 Lymphocytes # (Auto) 3.3 Monocytes # (Auto) 0.9 Eosinophils # (Auto) 0.2 Basophils # (Auto) 0.1 CBC Comment DIFF FINAL Differential Comment Blood Urea Nitrogen 10 Creatinine 0.85 Random Glucose 91 Calcium Level 9.2 Sodium Level 137 Potassium Level 3.4 Chloride Level 103 Carbon Dioxide Level 26.3 Anion Gap 8 Estimat Glomerular Filtration Rate 99 Total Bilirubin 0.4 Direct Bilirubin 0.1 Indirect Bilirubin 0.3 Aspartate Amino Transf (AST/SGOT) 13 Alanine Aminotransferase (ALT/SGPT) 17 Alkaline Phosphatase 105 Total Creatine Kinase 124 Creatine Kinase MB 0.8 Troponin I LESS THAN 0.02 Total Protein 7.7 Albumin 4.6 Lipase 168 Prothrombin Time 11.8 Prothromb Time International Ratio 1.1 Activated Partial Thromboplast Time 31.8 Result Diagram: 02/25/17212902/25/172129 Imaging Last Impressions Abdomen/Pelvis CT 02/25/172146 Signed Impressions: Service Date/Time: Saturday, February 25, 2017 23:06 - CONCLUSION: No acute CT findings in the abdomen or pelvis. Goldy Grover MD Chest X-Ray 02/25/172128 Signed Impressions: Service Date/Time: Saturday, February 25, 2017 21:38 - CONCLUSION: No acute disease. No significant change has occurred. MD Kiran Avelari VTE Risk Assessment Caprini VTE Risk Assessment: Mod/High Risk (score >= 2) Caprini Risk Assessment Model Point Value = 1 Point Value = 2 Point Value = 3 Point Value = 5 Age 41-60 Minor surgery BMI > 25 kg/m2 Swollen legs Varicose veins or History of unexplained or recurrent spontaneous Oral contraceptives or hormone replacement Sepsis (< 1 month) Serious lung disease, including pneumonia (< 1 month) Abnormal pulmonary function Acute myocardial infarction Congestive heart failure (< 1 month) History of inflammatory bowel disease Medical patient at bed rest Age 61-74 Arthroscopic surgery Major open surgery (> 45 min) Laparoscopic surgery (> 45 min) Malignancy Confined to bed (> 72 hours) Immobilizing plaster cast Central venous access Age >= 75 History of VTE Family history of VTE Factor V Leiden Prothrombin [id number] Lupus anticoagulant Anticardiolipin antibodies Elevated serum homocysteine Heparin-induced thrombocytopenia Other congenital or acquired thrombophilia Stroke (< 1 month) Elective arthroplasty Hip, pelvis, or leg fracture Acute spinal cord injury (< 1 month) Prophylaxis Regimen Total Risk Factor Score Risk Level Prophylaxis Regimen 0-1 Low Early ambulation 2 Moderate Order ONE of the following: *Sequential Compression Device (SCD) *Heparin 5000 units SQ BID 3-4 Higher Order ONE of the following medications: *Heparin 5000 units SQ TID *Enoxaparin/Lovenox 40 mg SQ daily (WT < 150 kg, CrCl > 30 mL/min) *Enoxaparin/Lovenox 30 mg SQ daily (WT < 150 kg, CrCl > 10-29 mL/min) *Enoxaparin/Lovenox 30 mg SQ BID (WT < 150 kg, CrCl > 30 mL/min) AND/OR *Sequential Compression Device (SCD) 5 or more Highest Order ONE of the following medications: *Heparin 5000 units SQ TID (Preferred with Epidurals) *Enoxaparin/Lovenox 40 mg SQ daily (WT < 150 kg, CrCl > 30 mL/min) *Enoxaparin/Lovenox 30 mg SQ daily (WT < 150 kg, CrCl > 10-29 mL/min) *Enoxaparin/Lovenox 30 mg SQ BID (WT < 150 kg, CrCl > 30 mL/min) AND *Sequential Compression Device (SCD) Assessment and Plan Problem List: (1) GI bleed ICD Code: K92.2 - Gastrointestinal hemorrhage, unspecified (2) Chest pain, atypical ICD Code: R07.89 - Other chest pain Status: Acute (3) Syncope ICD Code: R55 - Syncope Status: Acute Assessment and Plan 41 y/o male with a history of CAD with stent placement, HTN, major depressive disorder, anxiety and HLD presented to the ED with complaints of nausea, vomiting and chest pain. Chest pain, atypical, suspect due to chronic angina Troponin .02, EKG reviewed and showed SR with no ST elevation -Serial troponin and EKG ordered -Nitro SL as needed GI bleed, occult blood positive, hgb 14.4, patient reports black stools CT abdomen reviewed and shows no acute disease -Consult GI -Protonix IV -Serial H&H Hypokalemia, potassium 3.4 -Supplementation ordered, trend potassium and replace as needed Syncopal episodes at home, likely due to new medication gabapentin Recent EEG normal. -Check orthostatic BP -Hold gabapentin for now HTN, chronic, currently controlled: Resume home medications, monitor vitals DVT prophylaxis: SCDs, hold chemical due to bleeding This note was transcribed by scribaleksey [Allegra Baker]. I, Dr. Sunday Seals personally performed the history, physical exam, and medical decision making; and confirmed the accuracy of the information in the transcribed note. Authenticated by Dr. Sunday Seals on 02/26/17 at 01:51. Discussed Condition With Patient and ED physician Allegra Baker Feb 26, 2017 02:02 Sunday Seals MD Feb 26, 2017 03:38
[2017-02-26] MEDS ORDERED: NITROGLYCERIN 0.4 MG SL 25 TABS/BTL SL PRN (02:15)
[2017-02-26 03:26] VITALS: BP_SYST 132; BP_SYST 139; BP_SYST 145; BP_DIAS 81; BP_DIAS 86; BP_DIAS 89; PULSE 54; RESP 18; TEMP 98
[2017-02-26] MEDS ORDERED: ACETAMINOPHEN 325 MG TAB PO PRN (03:45)
[2017-02-26 04:11] LABS: HEMATOCRIT 42.3 % (39.0-51.0); REVIEW FLAG FINAL
[2017-02-26 04:28] VITALS: PULSE 51
[2017-02-26 07:32] VITALS: BP 118/78; PULSE 53; RESP 20; TEMP 97.8; O2SAT 99
[2017-02-26 08:00] VITALS: PULSE 57
[2017-02-26] MEDS ORDERED: SODIUM CHLOR 0.9% 1000 ML INJ 1,000 ML IV SCH (08:45)
[2017-02-26] MEDS ORDERED: amLODIPine BESYLATE 5 MG TAB PO SCH (09:00)
[2017-02-26] MEDS ORDERED: SODIUM CHLORIDE 0.9% FLUSH 10 ML FLUSH IV FLUSH SCH (09:00)
[2017-02-26] MEDS ORDERED: PANTOPRAZOLE SODIUM 40 MG VIAL IV PUSH SCH (09:00)
[2017-02-26] MEDS ORDERED: LURASIDONE 40 MG TAB PO SCH ×2 (09:00→21:00)
--- NOTE | 2017-02-26 09:01 | PD.CONS ---
HPI History of Present Illness This is a 41 year old male with a history of coronary artery disease, currently on Plavix, who presented to the emergency room for evaluation of chest pain, coffee ground emesis, and melena x 2 days. He underwent cardiac catheterization (07/31/16) and this revealed ST elevation LA of the obtuse marginal branch distribution with successful percutaneous intervention with bare metal stents to the obtuse marginal branch. Of note, there was a sub- branch off the first obtuse marginal branch which is now subtotally occluded. We will allow him to complete that infarct since it is very small caliber size and difficult to intervene on. He is being treated medically and per cardiology , he will need to continue the Plavix indefinitely. Since that time, he has been in the ER 5 times for chest pain. He has been seen by cardiology and they felt that his chest pain was atypical and likely of musculoskeletal origin. The patient states that he has frequent pain in his left anterior chest, described as a sharp or burning type pain. He cannot identify any aggravating factors such as food or exertion. This latest episode began yesterday at 8am. He had his normal burning/sharp pain in left anterior chest with also a sharp stabbing pain in his LUQ radiating to his RUQ. He reports associated nausea/vomiting with coffee ground emesis and dark tarry stool x 2 days. He also complains of difficulty swallowing with pills and occasionally solid food getting "hung up" in his upper esophagus. He denies any heartburn, reflux, diarrhea, constipation , or abnormal weight loss. He reports he has gained 8 lbs in the past few weeks. He reports multiple family members on his father's side with cancer- 2 uncles with brain cancer, 2 with abdominal cancer, and 1 with leukemia. (Peggy Dudley) PFSH Past Medical History CAD with stent placement Major depressive disorder Anxiety Hyperlipidemia Hypertension Hiatal hernia Past Surgical History Cardiac catheterization with stent placement (Peggy Dudley) Coded Allergies: No Known Allergies (Unverified , 02/25/17) Medications Allergies Coded Allergies Type Severity Reaction Last Updated Verified No Known Allergies 02/25/17 No Active Scripts Medications Dose Route/Sig Max Daily Dose Days Date Category Dose Instructions Doxepin (Doxepin HCl) 10 Mg Cap 10 Mg PO HS 02/25/17 Reported Latuda (Lurasidone) 40 Mg Tab 40 Mg PO DAILY 02/25/17 Reported Gabapentin 300 Mg Cap 300 Mg PO TID 02/25/17 Reported D 1000 (Cholecalciferol) 1,000 Unit Tab 2,000 Units PO DAILY 15 12/27/16 Rx Norvasc (Amlodipine Besylate) 5 Mg Tab 5 Mg PO DAILY 09/24/16 Rx Lipitor (Atorvastatin Calcium) 40 Mg Tab 40 Mg PO HS 07/31/16 Rx Plavix (Clopidogrel Bisulfate) 75 Mg Tab 75 Mg PO DAILY 30 07/31/16 Rx Nitroglycerin SL (Nitroglycerin) 0.4 Mg Subl 0.4 Mg SL DIRECTED PRN 05/15/16 Rx ONE TABLET UNDER THE TONGUE NEEDED FOR CHEST PAIN, MAY REPEAT EVERY FIVE MINUTES FOR A TOTAL OF 3 DOSES OR CALL 911 IF NO RELIEF [Aspirin Chew] 81 MG Chew 81 Mg PO DAILY 05/04/16 Rx Family History Multiple family members with cardiac issues on mother's side Multiple family members with cancer on fathers side, 2 uncles with brain cancer , 2 uncles with abdominal cancer, and 1 with leukemia Social History Tobacco use: A few times a week out of a pipe Alcohol use: Denies Illicit drug use: Marijuana (Peggy Dudley) Review of Systems Constitutional: COMPLAINS OF: Fatigue, Weight gain, DENIES: Weight loss Respiratory: COMPLAINS OF: Shortness of breath, DENIES: Cough Cardiovascular: COMPLAINS OF: Chest pain, DENIES: Palpitations Gastrointestinal: COMPLAINS OF: Abdominal pain, Black stools, Nausea, Vomiting , Difficulty Swallowing, Hematemesis, DENIES: Bloody stools, Constipation, Diarrhea, Swelling of Abdomen, Heartburn Integumentary: DENIES: Abnormal pigmentation Hematologic/lymphatic: DENIES: Bruising Neurologic: DENIES: Headache Psychiatric: DENIES: Confusion (Peggy Dudley) GI Exam Vitals I&O Vital Signs Date Time Temp Pulse Resp B/P (MAP) Pulse Ox O2 Delivery O2 Flow Rate FiO2 02/26/17 07:32 97.8 53 20 118/78 (91) 99 02/26/17 04:28 51 02/26/17 03:26 98.0 54 18 145/89 (107) 132/81 (98) 139/86 (103) 02/26/17 02:16 02/25/17 21:33 98 Room Air 02/25/17 21:33 98 Room Air 02/25/17 21:33 76 18 149/88 (108) 99 Room Air 156/78 (104) 02/25/17 21:19 98.6 80 18 152/91 (111) 99 Room Air Imaging Last Impressions Abdomen/Pelvis CT 02/25/172146 Signed Impressions: Service Date/Time: Saturday, February 25, 2017 23:06 - CONCLUSION: No acute CT findings in the abdomen or pelvis. Goldy Grover MD Chest X-Ray 02/25/172128 Signed Impressions: Service Date/Time: Saturday, February 25, 2017 21:38 - CONCLUSION: No acute disease. No significant change has occurred. Gera Smith MD Laboratory Test 02/25/17 21:30 02/25/17 21:48 02/26/17 03:37 White Blood Count 11.0 TH/MM3 Red Blood Count 4.50 MIL/MM3 Hemoglobin 14.4 GM/DL 14.4 GM/DL Hematocrit 43.1 % 42.3 % Mean Corpuscular Volume 95.7 FL Mean Corpuscular Hemoglobin 32.1 PG Mean Corpuscular Hemoglobin Concent 33.5 % Red Cell Distribution Width 13.4 % Platelet Count 269 TH/MM3 Mean Platelet Volume 8.1 FL Neutrophils (%) (Auto) 59.3 % Lymphocytes (%) (Auto) 29.9 % Monocytes (%) (Auto) 8.4 % Eosinophils (%) (Auto) 1.5 % Basophils (%) (Auto) 0.9 % Neutrophils # (Auto) 6.5 TH/MM3 Lymphocytes # (Auto) 3.3 TH/MM3 Monocytes # (Auto) 0.9 TH/MM3 Eosinophils # (Auto) 0.2 TH/MM3 Basophils # (Auto) 0.1 TH/MM3 CBC Comment DIFF FINAL Differential Comment Blood Urea Nitrogen 10 MG/DL Creatinine 0.85 MG/DL Random Glucose 91 MG/DL Calcium Level 9.2 MG/DL Sodium Level 137 MEQ/L Potassium Level 3.4 MEQ/L Chloride Level 103 MEQ/L Carbon Dioxide Level 26.3 MEQ/L Anion Gap 8 MEQ/L Estimat Glomerular Filtration Rate 99 ML/MIN Total Bilirubin 0.4 MG/DL Direct Bilirubin 0.1 MG/DL Indirect Bilirubin 0.3 MG/DL Aspartate Amino Transf (AST/SGOT) 13 U/L Alanine Aminotransferase (ALT/SGPT) 17 U/L Alkaline Phosphatase 105 U/L Total Creatine Kinase 124 U/L Creatine Kinase MB 0.8 NG/ML Troponin I LESS THAN 0.02 NG/ML LESS THAN 0.02 NG/ML Total Protein 7.7 GM/DL Albumin 4.6 GM/DL Lipase 168 U/L Prothrombin Time 11.8 SEC Prothromb Time International Ratio 1.1 RATIO Activated Partial Thromboplast Time 31.8 SEC Physical Examination HEENT: Normocephalic; atraumatic; no jaundice. CHEST: CTA CARDIAC: RRR ABDOMEN: Soft, nondistended, mild luq tenderness; no hepatosplenomegaly; bowel sounds are present in all four quadrants. EXTREMITIES: No clubbing, cyanosis, or edema. SKIN: Normal; no rash; no jaundice. HOSPITALITY AMBASSADOR: No focal deficits; alert and oriented times three. (Peggy Dudley) Assessment and Plan Plan ASSESSMENT: - Melena with coffee-ground emesis, melena. HH stable. 14.4/42.3. No hx of PUD. Takes plavix, last had yesterday. - LUQ abdominal pain. CT scan abdomen and pelvis (02/26/17)---> No acute CT findings in the abdomen or pelvis. C/O sharp stabbing intermittent LUQ pain, radiating to RUQ, no relation to food. Does have associated n/v with coffee ground emesis. - Dysphagia. Difficulty with pills and occasional solids getting caught in upper esophagus for a few minutes and then able to pass with drinking liquids. Never had egd. - Left sided anterior chest pain with CAD. S/P cardiac catheterization (07/31/16 ) and this revealed ST elevation LA of the obtuse marginal branch distribution with successful percutaneous intervention with bare metal stents to the obtuse marginal branch. Of note, there was a sub-branch off the first obtuse marginal branch which is now subtotally occluded. We will allow him to complete that infarct since it is very small caliber size and difficult to intervene on. He is being treated medically and per cardiology, he will need to continue the Plavix indefinitely. Since that time, he has been in the ER 5 times for chest pain. He has been seen by cardiology and they felt that his chest pain was atypical and likely of musculoskeletal origin. Troponin x 2 negative, third set pending. Cardiology evaluation pending. - Depression, Anxiety, Hyperlipidemia, Hypertension per attending. PLAN: - Keep NPO - Await cardiology evaluation - Will plan for egd today once cleared by cardiology for evaluation of upper gib - If dilatation is needed, that will have to be scheduled as outpatient once his Plavix is able to be held for 3 days - Protonix 40mg IV BID - Monitor labs - Notify GI of active bleeding - Supportive care - Notify GI once patient has been evaluated by cardiology - Pt seen and examined by Dr. Yanes and myself and this note is written on his behalf (Peggy Dudley) Physician Comments Seen and examined with DIANE, cleared by Dr. Donahue for egd today. Discussed with pt. NPO for now. (Miguelito Yanes MD) Peggy Dudley Feb 26, 2017 09:01 Miguelito Yanes MD Feb 26, 2017 12:01
--- NOTE | 2017-02-26 11:07 | HHI.PR ---
Subjective Remarks Follow-up for chest pain and hematemesis. The patient states that 2 nights ago he had a syncopal episode. He states it happened while he was in the kitchen and tried to walk and sit down but passed out. He denies any premonitory symptoms. He states he's had multiple syncopal episodes in the past and workups have been unremarkable. He states that yesterday morning he woke up with nausea and had 2 episodes of coffee-ground emesis, denies any episodes like this in the past. After the vomiting episode the patient had left-sided chest discomfort. He states the chest discomfort is similar to his chronic angina, but a little bit more left on his chest and where it normally is. He states the medical therapy has not been able to relieve any of the angina in the past. He states the pain is better today than yesterday. He reports chronic shortness of breath, denies any acute worsening. The patient states he only has a bowel movement about every for 5 days, but states recently they have been dark. He denies any abdominal pain. He states he has been taking up to 3 baby aspirins daily for pain. Educated regarding concomitant use of aspirin/ NSAIDs and Plavix. Objective Vitals Vital Signs Date Time Temp Pulse Resp B/P (MAP) Pulse Ox O2 Delivery O2 Flow Rate FiO2 02/26/17 07:32 97.8 53 20 118/78 (91) 99 02/26/17 04:28 51 02/26/17 03:26 98.0 54 18 145/89 (107) 132/81 (98) 139/86 (103) 02/26/17 02:16 02/25/17 21:33 98 Room Air 02/25/17 21:33 98 Room Air 02/25/17 21:33 76 18 149/88 (108) 99 Room Air 156/78 (104) 02/25/17 21:19 98.6 80 18 152/91 (111) 99 Room Air Result Diagram: 02/26/177 02/25/172129 Imaging Last Impressions Abdomen/Pelvis CT 02/25/172146 Signed Impressions: Service Date/Time: Saturday, February 25, 2017 23:06 - CONCLUSION: No acute CT findings in the abdomen or pelvis. Goldy Grover MD Chest X-Ray 02/25/172128 Signed Impressions: Service Date/Time: Saturday, February 25, 2017 21:38 - CONCLUSION: No acute disease. No significant change has occurred. Gera Smith MD Objective Remarks GENERAL: Well-developed well-nourished. In no acute distress. SKIN: Warm and dry. No lesions noted. HEENT: Normocephalic. Pupils equal and round. Mucous membranes pink and moist. CARDIOVASCULAR: Regular rate and rhythm. No murmur appreciated. Chest wall nontender to palpation. RESPIRATORY: No accessory muscle use. Clear to auscultation. Breath sounds equal bilaterally. GASTROINTESTINAL: Abdomen soft, non-tender, nondistended. Bowel sounds x4. MUSCULOSKELETAL: No obvious deformities. No clubbing or cyanosis. No edema. NEUROLOGICAL: Awake and alert. No focal neurological deficits. Moves upper and lower extremities spontaneously. Normal speech. PSYCHIATRIC: Appropriate mood and affect; insight and judgment normal. A/P Problem List: (1) GI bleed ICD Code: K92.2 - Gastrointestinal hemorrhage, unspecified Status: Acute (2) Chest pain, atypical ICD Code: R07.89 - Other chest pain Status: Acute (3) Syncope ICD Code: R55 - Syncope Status: Acute Assessment and Plan 41 y/o male with a history of CAD with stent placement, HTN, major depressive disorder, anxiety and HLD presented to the ED with complaints of nausea, vomiting and chest pain. Atypical chest pain with history of CAD: Seems similar to patient's chronic angina. The patient has known marginal branch occlusion on recent with suggestion for medical management in the past. Troponin .02 2. EKG reviewed with NSR, no acute changes or significant change from previous. -Serial troponin and EKGs -Nitro SL as needed -Cardiology consulted -Plavix on hold for now with GI bleeding as below -Continue statin Coffee-ground emesis and dark stools: Occult blood positive in the ED. Likely due to overuse of aspirin especially while on Plavix. Reviewed: CT abdomen shows no acute disease. Hgb stable at 14.4. -Consulted GI, recommends EGD when cleared by cardiology -Protonix IV -Serial H&H -Educated regarding avoiding NSAID use. Hypokalemia, mild, potassium 3.4, likely due to vomiting -Given oral replacement. Repeat BMP pending. Syncopal episodes, recurrent: Recent unremarkable workup. Reviewed: Carotid ultrasound 10/23 with patent carotids. Non-orthostatic. EEG 10/23 was normal. Echocardiogram 10/24 showed normal systolic function and EF 60-65 % . Holter monitor 10/[address] showed sinus [address]. Head CT 10/22 and 12/20 were unremarkable. -Hold new med gabapentin for now -Cardiology consulted as above -Monitor on telemetry -PT eval -Previous UDS positive for cannabis, check UDS HTN, chronic, currently controlled: -Continue home amlodipine Anxiety/depression: Chronic. -Continue doxepin and Latuda DVT prophylaxis: SCDs, hold chemical due to bleeding Discharge Planning Disposition pending clinical course. Discharge planning once cleared by specialists. Addend 1600: Cardiology evaluated the patient, cleared for GI procedure, and recommended continued aggressive modification of his cardiac risk factors. GI performed EGD which showed Vazquez's esophagus and gastritis. D/W GI, clear for DC on PPI and Plavix if tolerating diet. H&H has remained stable. Likely DC later today with Protonix rx if patient tolerating oral intake. Mark Crisostomo Feb 26, 2017 11:07
[2017-02-26 11:11] VITALS: BP_SYST 133; BP_SYST 135; BP_DIAS 81; BP_DIAS 85; PULSE 59; RESP 18; TEMP 97.7; O2SAT 100
[2017-02-26] MEDS ORDERED: PROPOFOL 200 MG/20 ML AMP IV ONE (12:00)
[2017-02-26] MEDS ORDERED: LIDOCAINE HCL 1% PF 5 ML AMPULE OTHER ONE (12:00)
[2017-02-26 12:23] LABS: HEMATOCRIT 42.2 % (39.0-51.0); REVIEW FLAG FINAL
[2017-02-26 12:42] LABS: MAGNESIUM 2.1 MG/DL (1.5-2.5); POTASSIUM 3.9 MEQ/L (3.5-5.1)
[2017-02-26] MEDS ORDERED: PROPOFOL 200 MG/20 ML AMP ONE (14:13)
--- NOTE | 2017-02-26 14:37 | GIPROC ---
[facility] [address] [facility]. [facility] [place], [address] EGD PROCEDURE REPORT EXAM DATE: 02/26/2017 PATIENT NAME: Bang Hays MR #: [id number] BIRTHDATE: 1975 ATTENDING: Miguelito Yanes MD ORDER #: [id number] TOWEL SEWER: Mila Panda and Lani Caceres STATUS: inpatient INDICATIONS: The patient is a 41 yr old male here for an EGD due to hematochezia PROCEDURE PERFORMED: EGD w/ biopsy MEDICATIONS: None and Per Anesthesia. TOPICAL ANESTHETIC: CONSENT: The patient understands the risks and benefits of the procedure and understands that these risks include, but are not limited to: sedation, allergic reaction, infection, perforation and/or bleeding. Alternative means of evaluation and treatment include, among others: physical exam, x-rays, and/or surgical intervention. The patient elects to proceed with this endoscopic procedure. medical equipment was checked for proper function. Hand hygiene and appropriate measures for infection prevention was taken. After the risks, benefits and alternatives of the procedure were thoroughly explained, Informed consent was verified, confirmed and timeout was successfully executed by the treatment team. The patient was anesthetized with topical anesthesia and the Pentax EG-[id number] endoscope was introduced through the mouth and advanced to the second portion of the duodenum. Retroflexed views revealed no abnormalities The gastroscope was then slowly withdrawn and removed. 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 The length of circumferential Vazquez's was 1cm (Reardan C1) and the length of Maximal extent of Vazquez's was 1cm (Reardan M1). There was no nodular mucosa noted in the Vazquez's segment. A biopsy was performed using cold forceps. Sample sent for histology. STOMACH: There was erythematous moderate gastritis in the gastric antrum. A biopsy was performed using cold forceps. Sample sent for histology. DUODENUM: The duodenal mucosa appeared normal in the bulb and second portion of the duodenum. ADVERSE EVENTS: There were no complications. IMPRESSIONS: 1. 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 There was erythematous gastritis in the gastric antrum; biopsy was performed 3. Normal duodenal mucosa in the bulb and second portion of the duodenum 4. Retroflexed views revealed no abnormalities RECOMMENDATIONS: 1. Await biopsy results. Biopsy results will not be ready for 7-10 days. If you don't hear from us in two weeks, call our office for biopsy results. 2. Anti-reflux regimen 3. Continue PPI 4. Avoid NSAIDS PATIENT CONDITION: stable DISPOSITION: Inpatient REPEAT EXAM: Return 1 year EGD with dilatation Miguelito Yanes MD eSigned: Miguelito Yanes MD 02/26/2017 2:37 PM cc: PATIENT NAME: Bang Hays Ezekiel MR#: [id number]
--- NOTE | 2017-02-26 15:01 | EKG ---
Date Performed: 02/26/2017 Time Performed: 03:18:11 PTAGE: 41 years EKG: SINUS BRADYCARDIA MODERATE INTRAVENTRICULAR CONDUCTION DELAY BORDERLINE ECG PREVIOUS TRACING : 02/25/2017 21.30 Compared to prior tracing no significant change DOCTOR: Ankur Durham Interpretating Date/Time 02/26/2017 15:00:52
--- NOTE | 2017-02-26 15:37 | MB ---
cc: DEE DEE KINGSLEY DATE OF CONSULTATION: 02/26/2017 HISTORY OF PRESENT ILLNESS Mr. Hays is a 41-year-old white male with a history of coronary artery disease and coronary stenting last in July 2016 using a bare metal stent. He presented with coffee-ground vomiting and left lateral chest discomfort radiating down into the left side of his abdomen, epigastric pain and nausea. He also had black stools. His Plavix is on hold and he is scheduled for endoscopy. He has not had any angina similar to his symptoms prior to his stenting. PAST MEDICAL HISTORY 1. Bare metal stent placement to the OM1 left circumflex in April 2016, and bare metal stent placement to the OM1 again on July 31, 2016. 2. Hypertension. 3. Depression. 4. Anxiety. 5. Dyslipidemia. MEDICATIONS 1. Aspirin. 2. Plavix. 3. Nitroglycerin p.r.n. 4. Atorvastatin 40. 5. Norvasc. 6. Vitamin-D. 7. Doxepin. 8. Latuda. 9. Gabapentin. ALLERGIES None. SOCIAL HISTORY The patient is a smoker. He does not drink alcohol. FAMILY HISTORY Positive for heart disease. REVIEW OF SYSTEMS Positive for heart disease, otherwise negative. PHYSICAL EXAMINATION VITAL SIGNS: Blood pressure 133/81, pulse 59 and regular. HEENT: Negative. NECK: 2+ carotid upstrokes. No bruits. LUNGS: Clear. HEART: Regular with no murmur or gallop. ABDOMEN: Soft. No bruits. EXTREMITIES: Without edema. 2+ distal pulses. NEUROLOGIC: Grossly nonfocal. EKG EKG was reviewed and showed normal sinus rhythm, left axis, normal intervals, no acute changes. LABORATORY Hemoglobin 14.4 and stable. Potassium 3.9. Creatinine 0.8. Troponin negative x3. DIAGNOSIS 1. GI bleeding. 2. Atypical chest pain. 3. Coronary artery disease, history of bare metal stent placement. 4. Hypertension. 5. Dyslipidemia. DISPOSITION Mr. Hays underwent bare metal stent placement last in July of this year. He does not have diabetes. The stent should be fully epithelialized within a month and definitely within three months. We can hold his Plavix for now as needed for his GI procedures. He has not had any recurrent angina. Recommend to continue aggressive modification of his cardiac risk factors. MD MARVIN Lipscomb /2:47 PM /3:21 PM
[2017-02-26 15:53] VITALS: BP 141/81; PULSE 52; RESP 20; TEMP 98.1; O2SAT 100
[2017-02-26] MEDS ORDERED: PANT40TA3 PO (16:06)
[2017-02-26 16:17] LABS: HEMATOCRIT 44.5 % (39.0-51.0); REVIEW FLAG FINAL
[2017-02-26] MEDS ORDERED: DOXEPIN HCL 10 MG CAP PO SCH (21:00)
[2017-02-26] MEDS ORDERED: ATORVASTATIN 40 MG TAB PO SCH (21:00)
--- NOTE | 2017-02-26 23:25 | EKG ---
Date Performed: 02/25/2017 Time Performed: 21:30:35 PTAGE: 41 years EKG: Sinus rhythm INDETERMINATE AXIS ATYPICAL ECG PREVIOUS TRACING : 12/26/2016 09.35 Compared to prior tracing no significant change DOCTOR: Ankur Durham Interpretating Date/Time 02/26/2017 23:24:24
== END 2017-02-26 19:44 | disposition home or self-care (01) ==
LOC: NEPE 21:17 → NEDA 02-26 00:50 → INTOOBSV 02-26 00:50 → UNDOADMIN 02-26 00:50 → OBSVTOIN 02-26 00:50 → INTOOBSV 02-26 01:02 → NEDA 02-26 01:02 → NEPHCDU 02-26 02:20
PROVIDERS: ADMIT Hospitalist; ATTEND Hospitalist
DX: K92.2 Gastrointestinal hemorrhage, unspecified (principal); K92.1 Melena; K92.0 Hematemesis; R07.89 Other chest pain; R55 Syncope and collapse; E87.6 Hypokalemia; R00.1 Bradycardia, unspecified; R13.10 Dysphagia, unspecified; R42 Dizziness and giddiness; R10.13 Epigastric pain; K59.00 Constipation, unspecified; I25.10 Atherosclerotic heart disease of native coronary artery without angina pectoris; I10 Essential (primary) hypertension; I25.2 Old myocardial infarction; J45.909 Unspecified asthma, uncomplicated; E78.00 Pure hypercholesterolemia, unspecified; G47.30 Sleep apnea, unspecified; F41.9 Anxiety disorder, unspecified; F32.9 Major depressive disorder, single episode, unspecified; F17.200 Nicotine dependence, unspecified, uncomplicated; F12.90 Cannabis use, unspecified, uncomplicated; Z95.5 Presence of coronary angioplasty implant and graft; Z79.899 Other long term (current) drug therapy; Z79.82 Long term (current) use of aspirin; Z79.02 Long term (current) use of antithrombotics/antiplatelets
CPT/HCPCS: 71010; 74177; 80048; 80076; 82550; 82552; 83690; 83735; 84484; 85014; 85018; 85025; 85610; 85730; 88305; 93005; 96374; 96375; 96376; C9113; G0378; G8987-GP; G8988-GP; G8989-GP; J2270; J2405; Q9967

== ENCOUNTER 2017-03-06 23:14 | Emergency (ER) | payer OTHER ==
[~2017-03-06] VITALS: Ht 180.3 cm; Wt 84.0 kg
[~2017-03-06 23:14] MED LIST changes: -Aspirin Chew PO; +DOXE10CA PO; +GABA300C5 PO; +LURA40 PO; -METO25TA3 PO; -MIRTA15 PO; +PANT40TA3 PO
[2017-03-06 23:18] VITALS: BP 145/86; PULSE 68; RESP 16; TEMP 97.9; O2SAT 98
[2017-03-06 23:53] LABS: AUTOMATED NEUTROPHIL # 4.8 TH/MM3 (1.8-7.7); BASOPHIL # 0.1 TH/MM3 (0-0.2); BASOPHIL % 1.3 % (0.0-2.0); EOSINOPHIL # 0.3 TH/MM3 (0-0.4); EOSINOPHIL % 3.7 % (0.0-4.0); HEMATOCRIT 39.6 % (39.0-51.0); HEMO FLAGS DIFF FINAL; LYMPH % 35.1 % (9.0-44.0); LYMPHOCYTE # 3.3 TH/MM3 (1.0-4.8); MEAN CELL VOLUME 95.6 FL (80.0-100.0); MEAN CORPUSCULAR HEMOGLOBIN 33.3 PG (27.0-34.0); MEAN CORPUSCULAR HGB CONC 34.8 % (32.0-36.0); MONO % 8.1 % (0.0-8.0); NEUT % 51.8 % (16.0-70.0); PLATELET COUNT 241 TH/MM3 (150-450); RED BLOOD COUNT 4.14 MIL/MM3 (4.50-5.90); RED CELL DISTRIBUTION WIDTH 13.3 % (11.6-17.2); WHITE BLOOD COUNT 9.3 TH/MM3 (4.0-11.0)
--- NOTE | 2017-03-06 23:58 | PD ---
HPI Chief Complaint: Chest Pain Time Seen by Provider: 23:40 Travel History International Travel<30 days: No Contact w/Intl Traveler<30days: No Traveled to known affect area: No History of Present Illness HPI Patient is a 41-year-old male with a history of coronary artery disease, smoking presents emergency department for evaluation of left-sided chest pain radiating to the right side states it feels very heavy. States been going on for the past few hours. He is followed by Dr. Palomino a vocational coordinator. He states the pain is tight in the left side of his chest radiation to the right, so she was shortness of breath and some mild dizziness. Context as coronary artery disease. PFSH Past Medical History Hx Anticoagulant Therapy: Yes (Aspirn) Asthma: Yes Blood Disorders: No Anxiety: Yes Depression: Yes Heart Rhythm Problems: No Cancer: No Cardiac Catheterization: Yes (stent x5) Cardiovascular Problems: Yes (CAD, HTN, Stent x5, RI) High Cholesterol: Yes Chest Pain: Yes Congestive Heart Failure: No COPD: No Coronary Artery Disease: Yes Diminished Hearing: No Endocrine: No Gastrointestinal Disorders: No Genitourinary: No Headaches: No Hypertension: Yes Immune Disorder: No Implanted Vascular Access Dvce: Yes Musculoskeletal: No Neurologic: Yes (HYDROCEPHALUS, Syncope) Psychiatric: Yes (Hx of depression and anxiety) Reproductive: No Respiratory: Yes (Asthma) Migraines: Yes Myocardial Infarction: Yes Sleep Apnea: Yes Tetanus Vaccination: Unknown Influenza Vaccination: No Past Surgical History Body Medical Devices: STENTS Cardiac Surgery: Yes Neurologic Surgery: Yes (shunt for hydrocephalus and removal) Other Surgery: Yes (CATH, SHUNT) Family History Family Myocardial Infarction: Yes Social History Alcohol Use: No Tobacco Use: Yes (3 CIGS / DAY) Substance Use: Yes (marijuana occassionally, "hooked on pain pills" last used in 2006) Allergies-Medications (Allergen,Severity, Reaction): Coded Allergies: No Known Allergies (Unverified , 02/25/17) Reported Meds & Prescriptions Reported Meds & Active Scripts Active Pantoprazole (Pantoprazole Sodium) 40 Mg Tab 40 Mg PO DAILY D 1000 (Cholecalciferol) 1,000 Unit Tab 2,000 Units PO DAILY 15 Days Norvasc (Amlodipine Besylate) 5 Mg Tab 5 Mg PO DAILY Lipitor (Atorvastatin Calcium) 40 Mg Tab 40 Mg PO HS Plavix (Clopidogrel Bisulfate) 75 Mg Tab 75 Mg PO DAILY 30 Days Nitroglycerin SL (Nitroglycerin) 0.4 Mg Subl 0.4 Mg SL DIRECTED PRN ONE TABLET UNDER THE TONGUE NEEDED FOR CHEST PAIN, MAY REPEAT EVERY FIVE MINUTES FOR A TOTAL OF 3 DOSES OR CALL 911 IF NO RELIEF Reported Doxepin (Doxepin HCl) 10 Mg Cap 10 Mg PO HS Latuda (Lurasidone) 40 Mg Tab 40 Mg PO DAILY Gabapentin 300 Mg Cap 300 Mg PO TID Physical Exam Narrative GENERAL: Well-developed, thin, smells of cigarette smoke, older than stated age in no apparent distress. SKIN: Focused skin assessment warm/dry. HEAD: Atraumatic. Normocephalic. EYES: Pupils equal and round. No scleral icterus. No injection or drainage. ENT: No nasal bleeding or discharge. Mucous membranes pink and moist. NECK: Trachea midline. No JVD. CARDIOVASCULAR: Regular rate and rhythm. No murmur appreciated. 2+ bilateral equal pulses in all 4 extremities. RESPIRATORY: No accessory muscle use. Clear to auscultation. Breath sounds equal bilaterally. GASTROINTESTINAL: Abdomen soft, non-tender, nondistended. Hepatic and splenic margins not palpable. MUSCULOSKELETAL: No obvious deformities. No clubbing. No cyanosis. No edema. NEUROLOGICAL: Awake and alert. No obvious cranial nerve deficits. Motor grossly within normal limits. Normal speech. PSYCHIATRIC: Appropriate mood and affect; insight and judgment normal. Data Data Last Documented VS Vital Signs Date Time Temp Pulse Resp B/P (MAP) Pulse Ox O2 Delivery O2 Flow Rate FiO2 03/07/17 02:04 55 20 135/67 (89) 97 03/07/17 00:49 Nasal Cannula 2.00 03/06/17 23:18 97.9 Orders Orders Electrocardiogram (03/06/17 23:42) Complete Blood Count With Diff (03/06/17 23:42) Basic Metabolic Panel (Bmp) (03/06/17 23:42) Ckmb (Isoenzyme) Profile (03/06/17:42) Troponin I (03/06/17 23:42) Chest, Single Ap (03/06/17 23:42) Iv Access Insert/Monitor (03/06/17 23:42) Ecg Monitoring (03/06/17:42) Oxygen Administration (03/06/17:) Oximetry (10/19/17 23:42) Aspirin Chew (Aspirin Chew) (03/07/17 00:00) Nitroglycerin Sl (Nitrostat Sl) (03/07/17 00:00) CKMB (03/06/17 23:40) CKMB% (03/06/17 23:40) Ed Discharge Order (03/07/17 01:32) Labs Laboratory Tests Test 03/06/17 23:40 White Blood Count 9.3 TH/MM3 Red Blood Count 4.14 MIL/MM3 Hemoglobin 13.8 GM/DL Hematocrit 39.6 % Mean Corpuscular Volume 95.6 FL Mean Corpuscular Hemoglobin 33.3 PG Mean Corpuscular Hemoglobin Concent 34.8 % Red Cell Distribution Width 13.3 % Platelet Count 241 TH/MM3 Mean Platelet Volume 8.2 FL Neutrophils (%) (Auto) 51.8 % Lymphocytes (%) (Auto) 35.1 % Monocytes (%) (Auto) 8.1 % Eosinophils (%) (Auto) 3.7 % Basophils (%) (Auto) 1.3 % Neutrophils # (Auto) 4.8 TH/MM3 Lymphocytes # (Auto) 3.3 TH/MM3 Monocytes # (Auto) 0.8 TH/MM3 Eosinophils # (Auto) 0.3 TH/MM3 Basophils # (Auto) 0.1 TH/MM3 CBC Comment DIFF FINAL Differential Comment Blood Urea Nitrogen 6 MG/DL Creatinine 0.85 MG/DL Random Glucose 108 MG/DL Calcium Level 8.8 MG/DL Sodium Level 139 MEQ/L Potassium Level 3.5 MEQ/L Chloride Level 107 MEQ/L Carbon Dioxide Level 24.1 MEQ/L Anion Gap 8 MEQ/L Estimat Glomerular Filtration Rate 99 ML/MIN Total Creatine Kinase 233 U/L Creatine Kinase MB 1.8 NG/ML Troponin I LESS THAN 0.02 NG/ML MDM Medical Decision Making Medical Screen Exam Complete: Yes Emergency Medical Condition: Yes Differential Diagnosis Chest pain, reflux, esophagitis, pneumonia, ACS, AMI. Narrative Course Patient roomed emerged permit, EKG chest x-ray and troponin were reassuring. The the patient was just admitted for epigastric pain had a cardiology consult at that time and recommended continued outpatient follow-up. Just saw his vocational coordinator yesterday with advice for further medical management. He did have cardiac catheterization earlier this year with stents placed, according to Dr. giraldo on recent admission this month these likely well epithelialized. He did tolerate a GI procedure well. Patient was given option to stay and have stress test done and informed him that I could not completely were out coronary disease though given the recent history of cardiac consultation this seems unlikely. At this time the patient would like to follow-up with his vocational coordinator in go home as he is feeling better after pain medicine given here. He is not driving home. Discussed need for follow-up with his vocational coordinator as soon as possible discussed return to ED criteria and he is welcome to return should he want repeat evaluation for his chest pain at any time. Risks of major adverse cardiac event as well as and permanent or partial disability are higher without stress tests from the emergency department he verbalized understanding and will like to go home. Diagnosis Primary Impression: Chest pain Qualified Codes: R07.9 - Chest pain, unspecified Additional Instructions: Call your vocational coordinator tomorrow Disposition: 01 DISCHARGE HOME Condition: Stable Seb Cantor MD Mar 06, 2017 23:58
[2017-03-07] MEDS ORDERED: ASPIRIN 81 MG CHEW TAB CHEW ONE
[2017-03-07 00:10] LABS: ANION GAP 8 MEQ/L (5-15); BICARBONATE 24.1 MEQ/L (21.0-32.0); BLOOD UREA NITROGEN 6 MG/DL (7-18); CHLORIDE 107 MEQ/L (98-107); GLOMERULAR FILTRATION RATE 99 ML/MIN (>89); POTASSIUM 3.5 MEQ/L (3.5-5.1); SODIUM (NA) 139 MEQ/L (136-145)
[2017-03-07] MEDS: NITROGLYCERIN 0.4 MG SL 25 TABS/BTL SL PRN ×3 (00:11→00:20)
[2017-03-07 00:14] LABS: CREATINE KINASE 233 U/L (39-308)
[2017-03-07 00:18] VITALS: BP 147/81; PULSE 68; RESP 20; O2SAT 97
[2017-03-07 00:19] VITALS: PULSE 70; RESP 20; O2SAT 97
[2017-03-07 00:26] LABS: CKMB 1.8 NG/ML (0.5-3.6)
--- NOTE | 2017-03-07 00:26 | RADRPT ---
EXAM DATE/TIME: 03/06/2017 23:47 [facility] COMPARISON: CHEST SINGLE AP, February 25, 2017, 21:38. INDICATIONS : Chest pain and shortness of breath MEDICAL HISTORY : Hypercholesterolemia. Hypertension Hydrocephalus SURGICAL HISTORY : Shunt, Stent ENCOUNTER: Initial ACUITY: 1 day PAIN SCORE: 6/10 LOCATION: Bilateral chest FINDINGS: A single view of the chest demonstrates minimal right basilar density. Left lung clear. Heart normal in size. The cardiomediastinal contours are unremarkable. Osseous structures are intact. CONCLUSION: 1. Minimal right basilar density likely atelectasis. Adán Alexandre MD on March 07, 2017 at 0:24 Board Certified Radiologist. This report was verified electronically.
[2017-03-07 00:49] VITALS: BP 136/84; PULSE 51; RESP 20; O2SAT 98
[2017-03-07 02:04] VITALS: BP 135/67
--- NOTE | 2017-03-07 21:24 | EKG ---
Date Performed: 03/06/2017 Time Performed: 23:38:47 PTAGE: 41 years EKG: Sinus rhythm MODERATE INTRAVENTRICULAR CONDUCTION DELAY BORDERLINE ECG NO PREVIOUS TRACING DOCTOR: Jason Lenz Interpretating Date/Time 03/07/2017 21:24:07
== END 2017-03-07 05:13 | disposition home or self-care (01) ==
LOC: NEPE 23:14
DX: R07.9 Chest pain, unspecified (principal); I25.10 Atherosclerotic heart disease of native coronary artery without angina pectoris; I10 Essential (primary) hypertension; I25.2 Old myocardial infarction; J45.909 Unspecified asthma, uncomplicated; F17.210 Nicotine dependence, cigarettes, uncomplicated
CPT/HCPCS: 71010; 80048; 82550; 82552; 84484; 85025; 93005; 99285

== ENCOUNTER 2017-06-13 17:54 | Emergency (ER) | payer OTHER ==
[~2017-06-13] VITALS: Ht 185.4 cm; Wt 85.0 kg
[2017-06-13 17:55] VITALS: BP 154/91; PULSE 106; RESP 16; TEMP 98; O2SAT 100
[2017-06-13 18:27] VITALS: BP 139/88; PULSE 81; RESP 17; TEMP 98.3; O2SAT 99
[2017-06-13] MEDS ORDERED: KETOROLAC TROMETHAMINE 30 MG/ML (IVP) VIAL IV PUSH ONE (19:30)
[2017-06-13 20:00] VITALS: BP 154/95; PULSE 79; RESP 16; O2SAT 100
[2017-06-13 20:14] LABS: AUTOMATED NEUTROPHIL # 7.4 TH/MM3 (1.8-7.7); BASOPHIL # 0.1 TH/MM3 (0-0.2); BASOPHIL % 0.9 % (0.0-2.0); EOSINOPHIL # 0.3 TH/MM3 (0-0.4); EOSINOPHIL % 2.6 % (0.0-4.0); HEMATOCRIT 40.9 % (39.0-51.0); HEMOGLOBIN 14.3 GM/DL (13.0-17.0); LYMPH % 24.1 % (9.0-44.0); LYMPHOCYTE # 2.8 TH/MM3 (1.0-4.8); MEAN CELL VOLUME 94.4 FL (80.0-100.0); MEAN PLATELET VOLUME 8.1 FL (7.0-11.0); MONO % 8.4 % (0.0-8.0); PLATELET COUNT 261 TH/MM3 (150-450); RED BLOOD COUNT 4.34 MIL/MM3 (4.50-5.90); RED CELL DISTRIBUTION WIDTH 13.3 % (11.6-17.2); WHITE BLOOD COUNT 11.6 TH/MM3 (4.0-11.0)
--- NOTE | 2017-06-13 20:30 | RADRPT ---
EXAM DATE/TIME: 06/13/2017 19:39 [facility] COMPARISON: No previous studies available for comparison. INDICATIONS : Chest pain. MEDICAL HISTORY : Myocardial infarction. Hypertension Asthma. SURGICAL HISTORY : Stents. ENCOUNTER: Initial ACUITY: 1 day PAIN SCORE: 7/10 LOCATION: Left chest FINDINGS: PA and lateral views of the chest demonstrate the lungs to be symmetrically aerated without evidence of mass, infiltrate or effusion. The cardiomediastinal contours are unremarkable. Osseous structure s are intact. CONCLUSION: 1. No active disease. Olvin Mcneill MD on June 13, 2017 at 20:25 Board Certified Radiologist. This report was verified electronically.
[2017-06-13 20:38] LABS: ALBUMIN 4.3 GM/DL (3.4-5.0); ALT (GPT) 20 U/L (12-78); AST (GOT) 20 U/L (15-37); BICARBONATE 26.7 MEQ/L (21.0-32.0); BLOOD UREA NITROGEN 10 MG/DL (7-18); CALCIUM 9.1 MG/DL (8.5-10.1); CHLORIDE 105 MEQ/L (98-107); GLOMERULAR FILTRATION RATE 66 ML/MIN (>89); GLUCOSE,RANDOM 72 MG/DL (74-106); LIPASE 188 U/L (73-393); SODIUM (NA) 139 MEQ/L (136-145)
[2017-06-13 20:54] LABS: ALKALINE PHOSPHATASE 123 U/L (45-117); TOTAL BILIRUBIN ADULT 0.4 MG/DL (0.2-1.0); TOTAL PROTEIN 7.8 GM/DL (6.4-8.2); TROPONIN I LESS THAN 0.02 NG/ML (0.02-0.05)
--- NOTE | 2017-06-13 21:03 | PD ---
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 Denies any cardiac history. Denies any substance abuse denies any trauma just heavy-duty lifting all day and sudden severe stabbing pain to the neck and left chest and left arm he took nothing for the pain. In nothing has relieved the pain and not short of breath denies cough PFSH Past Medical History Hx Anticoagulant Therapy: Yes Asthma: Yes Blood Disorders: No Anxiety: Yes Depression: Yes Heart Rhythm Problems: No Cancer: No Cardiac Catheterization: Yes (stent x5) Cardiovascular Problems: Yes (CAD, VA) High Cholesterol: Yes Chest Pain: Yes Congestive Heart Failure: No COPD: No Coronary Artery Disease: Yes Diminished Hearing: No Endocrine: No Gastrointestinal Disorders: No Genitourinary: No Headaches: No Hypertension: Yes Immune Disorder: No Implanted Vascular Access Dvce: Yes Musculoskeletal: No Neurologic: Yes (HYDROCEPHALUS, Syncope) Psychiatric: Yes (Hx of depression and anxiety) Reproductive: No Respiratory: Yes (ASTHMA) Migraines: Yes Myocardial Infarction: Yes Sleep Apnea: Yes Tetanus Vaccination: Unknown Influenza Vaccination: No ?: Not Past Surgical History Body Medical Devices: STENTS Cardiac Surgery: Yes Neurologic Surgery: Yes (shunt for hydrocephalus and removal) Other Surgery: Yes (CATH, SHUNT) Family History Family Myocardial Infarction: Yes Social History Alcohol Use: No Tobacco Use: No Substance Use: No Allergies-Medications (Allergen,Severity, Reaction): Coded Allergies: No Known Allergies (Unverified , 02/25/17) Reported Meds & Prescriptions Reported Meds & Active Scripts Active Valium (Diazepam) 5 Mg Tab 5 Mg PO BID PRN Ibuprofen 600 Mg Tab 600 Mg PO Q6H PRN Pantoprazole (Pantoprazole Sodium) 40 Mg Tab 40 Mg PO DAILY D 1000 (Cholecalciferol) 1,000 Unit Tab 2,000 Units PO DAILY 15 Days Norvasc (Amlodipine Besylate) 5 Mg Tab 5 Mg PO DAILY Lipitor (Atorvastatin Calcium) 40 Mg Tab 40 Mg PO HS Plavix (Clopidogrel Bisulfate) 75 Mg Tab 75 Mg PO DAILY 30 Days Nitroglycerin SL (Nitroglycerin) 0.4 Mg Subl 0.4 Mg SL DIRECTED PRN ONE TABLET UNDER THE TONGUE NEEDED FOR CHEST PAIN, MAY REPEAT EVERY FIVE MINUTES FOR A TOTAL OF 3 DOSES OR CALL 911 IF NO RELIEF Reported Doxepin (Doxepin HCl) 10 Mg Cap 10 Mg PO HS Latuda (Lurasidone) 40 Mg Tab 40 Mg PO DAILY Gabapentin 300 Mg Cap 300 Mg PO TID Review of Systems Except as stated in HPI: all other systems reviewed are Neg Cardiovascular: Positive: Chest Pain or Discomfort Musculoskeletal: Positive: Myalgias Physical Exam Narrative GENERAL: Patient is holding his side complaining of severe left chest pain SKIN: Warm and dry. HEAD: Atraumatic. Normocephalic. EYES: Pupils equal and round. No scleral icterus. No injection or drainage. ENT: No nasal bleeding or discharge. Mucous membranes pink and moist. NECK: Trachea midline. No JVD. CARDIOVASCULAR: Regular rate and rhythm. RESPIRATORY: No accessory muscle use. Clear to auscultation. Breath sounds equal bilaterally. No obvious deformity or step-off to the ribs on the lateral left chest GASTROINTESTINAL: Abdomen soft, non-tender, nondistended. Hepatic and splenic margins not palpable. MUSCULOSKELETAL: Extremities without clubbing, cyanosis, or edema. No obvious deformities. NEUROLOGICAL: Awake and alert. No obvious cranial nerve deficits. Motor grossly within normal limits. Five out of 5 muscle strength in the arms and legs. Normal speech. PSYCHIATRIC: Appropriate mood and affect; insight and judgment normal. Data Data Last Documented VS Vital Signs Date Time Temp Pulse Resp B/P (MAP) Pulse Ox O2 Delivery O2 Flow Rate FiO2 06/13/17 23:41 77 16 131/86 (101) 100 06/13/17 20:00 Room Air 06/13/17 18:27 98.3 Orders Orders Electrocardiogram (06/13/17 18:16) Ketorolac Inj (Toradol Inj) (06/13/17 19:30) Chest, Pa & Lat (06/13/17 ) Complete Blood Count With Diff (06/13/17 19:40) Comprehensive Metabolic Panel (06/13/17 19:40) Creatine Kinase (Cpk) (06/13/17 19:40) Troponin I (06/13/17 19:40) Lipase (06/13/17 19:40) CKMB (06/13/17 19:38) CKMB% (06/13/17 19:38) Sodium Chlor 0.9% 1000 Ml Inj (Ns 1000 M (06/13/17 21:15) Diazepam (Valium) (06/13/17 21:15) Morphine Inj (Morphine Inj) (06/13/17 22:30) Troponin I (06/13/17 22:21) Creatine Kinase (Cpk) (06/13/17 22:21) CKMB (06/13/17 22:35) CKMB% (06/13/17 22:35) Labs Laboratory Tests Test 06/13/17 19:38 06/13/17 22:35 White Blood Count 11.6 TH/MM3 Red Blood Count 4.34 MIL/MM3 Hemoglobin 14.3 GM/DL Hematocrit 40.9 % Mean Corpuscular Volume 94.4 FL Mean Corpuscular Hemoglobin 33.0 PG Mean Corpuscular Hemoglobin Concent 35.0 % Red Cell Distribution Width 13.3 % Platelet Count 261 TH/MM3 Mean Platelet Volume 8.1 FL Neutrophils (%) (Auto) 64.0 % Lymphocytes (%) (Auto) 24.1 % Monocytes (%) (Auto) 8.4 % Eosinophils (%) (Auto) 2.6 % Basophils (%) (Auto) 0.9 % Neutrophils # (Auto) 7.4 TH/MM3 Lymphocytes # (Auto) 2.8 TH/MM3 Monocytes # (Auto) 1.0 TH/MM3 Eosinophils # (Auto) 0.3 TH/MM3 Basophils # (Auto) 0.1 TH/MM3 CBC Comment DIFF FINAL Differential Comment Blood Urea Nitrogen 10 MG/DL Creatinine 1.20 MG/DL Random Glucose 72 MG/DL Total Protein 7.8 GM/DL Albumin 4.3 GM/DL Calcium Level 9.1 MG/DL Alkaline Phosphatase 123 U/L Aspartate Amino Transf (AST/SGOT) 20 U/L Alanine Aminotransferase (ALT/SGPT) 20 U/L Total Bilirubin 0.4 MG/DL Sodium Level 139 MEQ/L Potassium Level 3.5 MEQ/L Chloride Level 105 MEQ/L Carbon Dioxide Level 26.7 MEQ/L Anion Gap 7 MEQ/L Estimat Glomerular Filtration Rate 66 ML/MIN Total Creatine Kinase 1910 U/L 1929 U/L Creatine Kinase MB 0.9 NG/ML 1.1 NG/ML Creatine Kinase MB % 0.0 % 0.1 % Troponin I LESS THAN 0.02 NG/ML 0.02 NG/ML Lipase 188 U/L MDM Medical Decision Making Medical Screen Exam Complete: Yes Emergency Medical Condition: Yes Differential Diagnosis Differential diagnosis includes chest pain cardiac ischemia versus costochondritis versus muscle breakdown rhabdomyolysis versus pneumonia versus pleuritis versus trauma versus rib fracture Narrative Course Chest x-ray shows no pathology in the lung field EKG is normal sinus rhythm first troponin is negative his CPK is 1900 Will give 2 L of fluid and re-eval the troponin and the CPK after 3 hours to assure that CPKs decreasing her troponin remains negative discharged home Diagnosis Primary Impression: Rhabdomyolysis Additional Impressions: Muscle strain Costochondritis Patient Instructions: Costochondritis (ED), General Instructions, Rhabdomyolysis (ED) Scripts Diazepam (Valium) 5 Mg Tab 5 MG PO BID Y for MUSCLE SPASM, #12 TAB 0 Refills Prov: Juve Powell MD 06/13/17 Ibuprofen (Ibuprofen) 600 Mg Tab 600 MG PO Q6H Y for Pain/Inflammation, #40 TAB 0 Refills Prov: Juve Powell MD 06/13/17 Disposition: 01 DISCHARGE HOME Condition: Good Juve Powell MD Jun 13, 2017 21:03
[2017-06-13] MEDS ORDERED: DIAZEPAM 5 MG TAB PO ONE (21:15)
[2017-06-13] MEDS ORDERED: SODIUM CHLOR 0.9% 1000 ML INJ 1,000 ML IV ONE (21:15)
[2017-06-13] MEDS ORDERED: MORPHINE SULFATE 2 MG/ML INJ IV PUSH ONE (22:30)
[2017-06-13 23:23] LABS: TROPONIN I 0.02 NG/ML (0.02-0.05)
[2017-06-13] MEDS ORDERED: DIAZ5 PO (23:32)
[2017-06-13] MEDS ORDERED: IBUP-232 PO (23:32)
[2017-06-13 23:41] VITALS: BP 131/86
--- NOTE | 2017-06-14 13:29 | EKG ---
Date Performed: 06/13/2017 Time Performed: 18:16:53 PTAGE: 42 years EKG: Sinus rhythm Since the prior tracing, there has been no significant change NORMAL ECG PREVIOUS TRACING : 03/06/17 @ 2338 DOCTOR: César Carroll Interpretating Date/Time 06/14/2017 13:28:12
== END 2017-06-13 23:42 | disposition home or self-care (01) ==
LOC: NEPE 17:54
DX: M62.82 Rhabdomyolysis (principal); M94.0 Chondrocostal junction syndrome [Tietze]; M54.2 Cervicalgia; M79.602 Pain in left arm; I10 Essential (primary) hypertension; I25.10 Atherosclerotic heart disease of native coronary artery without angina pectoris; J45.909 Unspecified asthma, uncomplicated; X50.0XXA Overexertion from strenuous movement or load, initial encounter; Y99.0 Civilian activity done for income or pay
CPT/HCPCS: 71046; 80053; 82550; 82552; 83690; 84484; 85025; 93005; 96361; 96374; 96375; 99285; J1885; J2270; J7030

== ENCOUNTER 2018-04-30 20:33 | Observation (INO) ==
[2018-04-30] MEDS ORDERED: Morphine Inj 4 MG/ML Vial IV.PUSH ONE ×2 (20:47→21:57)
--- NOTE | 2018-04-30 20:50 | ED ---
HPI General Chief complaint: Chest Pain Stated complaint: Chest Pain Time Seen by Provider: 04/30/18 20:41 History of Present Illness HPI narrative: This is a 42-year-old male with history of coronary artery disease, multiple stents in place, hypertension, hyperlipidemia, presents via EMS for evaluation of chest pain. He reports that 2 hours prior to arrival he was sitting at home feeling stress in regards to shortly being evicted from his home. He developed a substernal left-sided chest pain that radiates to the right side of his chest and into the neck. Pain is sharp and constant. He received a total of 324 mg of aspirin as well as 1 nitroglycerin spray with slight improvement of his symptoms but the nitroglycerin caused a headache. He endorses some lightheadedness. He denies nausea, vomiting, shortness of breath , cough, congestion, abdominal pain, lower extremity edema. Symptoms are moderate. He reports compliance with his medications. No other complaints. Related Data Home Medications Medication Instructions Recorded Confirmed amlodipine 04/30/18 atorvastatin 04/30/18 clopidogrel 04/30/18 lurasidone [Latuda] 60 mg PO DAILY 04/30/18 04/30/18 Allergies Allergy/AdvReac Type Severity Reaction Status Date / Time No Known Allergies Allergy Verified 04/30/18 20:50 Review of Systems ROS: all other systems reviewed are negative [facility] Medical History Medical History Afib (Acute) Anxiety (Acute) CAD (coronary artery disease) (Acute) Depression (Acute) HTN (hypertension) (Acute) Head deformity (Acute) Hyperlipidemia (Acute) Major depression (Acute) Suicide attempt (Acute) Surgical History Surgical History History of heart artery stent (Acute) Social History Social History Substance History: No History of Abuse Second Hand Smoke Exposure: No Smoking Status: Former smoker (quit smoking 0.5 pack2 weeks ago from 1/2 pack/ daily) Packs Per Day: 0.5 Cigarettes Per Day: 10.0 Number of Pack-Years (if former smoker): 65 How Often Do You Have a Drink Containing Alcohol: Never Hx Recent Travel: No Recent Travel in [facility] within the Last 8 Weeks: No Recent Out of Country Travel within the Last 8 Weeks: No Exam Narrative Exam Narrative: GENERAL: Well-developed well-nourished male in no acute distress SKIN: Warm and dry. HEAD: Atraumatic. Normocephalic. EYES: Pupils equal and round. No scleral icterus. No injection or drainage. ENT: No nasal bleeding or discharge. Mucous membranes pink and moist. NECK: Trachea midline. No JVD. CARDIOVASCULAR: Regular rate and rhythm. No murmur appreciated. RESPIRATORY: No accessory muscle use. Clear to auscultation. Breath sounds equal bilaterally. GASTROINTESTINAL: Abdomen soft, non-tender, nondistended. Hepatic and splenic margins not palpable. MUSCULOSKELETAL: No obvious deformities. No clubbing. No cyanosis. No edema. NEUROLOGICAL: Awake and alert. No obvious cranial nerve deficits. Motor grossly within normal limits. Normal speech. PSYCHIATRIC: Appropriate mood and affect; insight and judgment normal. Course Initial Documented Vital Signs Temperature 98.3 F 04/30/18 20:43 Pulse Rate 72 04/30/18 20:43 Respiratory Rate 18 04/30/18 20:43 Blood Pressure 161/92 H 04/30/18 20:43 Pulse Oximetry 100 04/30/18 20:43 Last Documented Vital Signs Temperature 98 F 05/01/18 10:59 Pulse Rate 63 05/01/18 10:59 Respiratory Rate 18 05/01/18 10:59 Blood Pressure 110/77 05/01/18 10:59 Pulse Oximetry 98 05/01/18 10:59 Medical Decision Making ELIDIA Attestation ELIDIA supervised visit: Yes Attestation: I, Dr. Diamond, have reviewed the advance practice practitioner's documentation and am in agreement, met with the patient face to face, made the diagnosis, and the medical decision making was done by me. *My assessment and Findings: 42-year-old male with known history of CAD and previous stent placement recently seen by his primary head teacher Dr. Rubin today has been told that he needs to have some type of monitoring device placed in the next 2 weeks. Patient states that he is an avid walker and walked approximately 4 miles today. Patient also admits to ongoing tobacco abuse history of hypertension and dyslipidemia. Patient states after resting for a while at home this evening noticed that he had some retrosternal chest discomfort that reminded him of his angina. Patient has been told he has recurrent angina. Patient called EMS to transfer the patient to the emergency department. Patient states symptoms symptoms began after being told that he may loose his current residence. Patient has been somewhat depressed but no suicidal homicidal ideation. Patient has history of known coronary vessel disease presents with chest pain has received nitroglycerin and aspirin prior to arrival to the emergency department with some improvement. I agree with plan to obtain EKG place patient on panel monitor with continuous pulse oximetry IV access specimen collection administer nitroglycerin and proceed with assessment for possible observation admission to chest pain center or should patient have abnormal may require inpatient admission with heparinization. Concur with plan as initiated by mid-level provider. Consideration of chest pain atypical chest pain ACS MD PE musculoskeletal dissection versus GI etiology. [facility] Narrative Medical decision making narrative: The patient was placed on ECG monitoring pulse oximetry. Twelve-lead EKG was obtained revealing sinus rhythm with no acute ST elevation. Lab work, chest x-ray ordered. The patient was given nitroglycerin, morphine. The patient was reevaluated, his pain is improved but not resolved. Additional morphine, Nitropaste has been ordered. His lab work and imaging studies have been reviewed and found to be unremarkable. At this point in time the plan is to admit the patient to the chest pain center for serial cardiac enzymes and rule out purposes. He is agreeable. Patient notes improvement after sublingual nitroglycerin morphine and Nitropaste. Patient will be admitted to chest pain center per protocol. Medical Screen Exam Complete: Yes Emergency Medical Condition: Yes Differential Diagnosis Differential Diagnosis: Acute coronary syndrome, angina, anxiety, pneumothorax, pericarditis, myocarditis, pulmonary embolism Lab Data Result diagrams: 04/30/18 21:00 04/30/18 21:00 Lab Results 04/30/18 04/30/18 04/30/18 Range/Units 21:00 21:00 21:00 WBC 8.7 (4.0-11.0) th/mm3 RBC 4.58 (4.50-5.90) mil/mm3 Hgb 15.1 (13.0-17.0) gm/dL Hct 44.1 (39.0-51.0) % MCV 96.2 (80.0-100.0) fL MCH 33.0 (27.0-34.0) pg MCHC 34.3 (32.0-36.0) % RDW 14.0 (11.6-17.2) % Plt Count 245 (150-450) th/mm3 MPV 8.3 (7.0-11.0) fL Neut % (Auto) 61.6 (16.0-70.0) % Lymph % (Auto) 29.3 (9.0-44.0) % [place] % (Auto) 6.7 (0.0-8.0) % Eos % (Auto) 1.4 (0.0-4.0) % Baso % (Auto) 1.0 (0.0-2.0) % Neut # (Auto) 5.4 (1.8-7.7) th/mm3 Lymph # (Auto) 2.6 (1.0-4.8) th/mm3 [place] # (Auto) 0.6 (0.0-0.9) th/mm3 Eos # (Auto) 0.1 (0.0-0.4) th/mm3 Baso # (Auto) 0.1 (0.0-0.2) th/mm3 WBC Differential . Differential Comment Auto diff final PT 10.9 (9.8-11.6) sec INR 1.1 Ratio APTT 29.2 (23.4-31.7) sec Sodium 139 (136-145) meq/L Potassium 3.9 (3.5-5.1) meq/L Chloride 104 (98-107) meq/L Carbon Dioxide 24.2 (21.0-32.0) meq/L Anion Gap 11 (5-15) meq/L BUN 8 (7-18) mg/dL Creatinine 1.00 (0.60-1.30) mg/dL Estimated GFR 82 L (>89) mL/min Random Glucose 104 (74-106) mg/dL Calcium 8.9 (8.5-10.1) mg/dL Magnesium 2.1 (1.5-2.5) mg/dL Total Bilirubin 0.4 (0.2-1.0) mg/dL AST 17 (15-37) U/L ALT 21 (12-78) U/L Alkaline Phosphatase 126 H (45-117) U/L Total Creatine Kinase 100 (39-308) U/L Troponin I Less than 0.02 L (0.02-0.05) ng/mL Total Protein 7.9 (6.4-8.2) g/dL Albumin 4.3 (3.4-5.0) g/dL 04/30/18 05/01/18 Range/Units 23:30 02:40 WBC (4.0-11.0) th/mm3 RBC (4.50-5.90) mil/mm3 Hgb (13.0-17.0) gm/dL Hct (39.0-51.0) % MCV (80.0-100.0) fL MCH (27.0-34.0) pg MCHC (32.0-36.0) % RDW (11.6-17.2) % Plt Count (150-450) th/mm3 MPV (7.0-11.0) fL Neut % (Auto) (16.0-70.0) % Lymph % (Auto) (9.0-44.0) % [place] % (Auto) (0.0-8.0) % Eos % (Auto) (0.0-4.0) % Baso % (Auto) (0.0-2.0) % Neut # (Auto) (1.8-7.7) th/mm3 Lymph # (Auto) (1.0-4.8) th/mm3 [place] # (Auto) (0.0-0.9) th/mm3 Eos # (Auto) (0.0-0.4) th/mm3 Baso # (Auto) (0.0-0.2) th/mm3 WBC Differential Differential Comment PT (9.8-11.6) sec INR Ratio APTT (23.4-31.7) sec Sodium (136-145) meq/L Potassium (3.5-5.1) meq/L Chloride (98-107) meq/L Carbon Dioxide (21.0-32.0) meq/L Anion Gap (5-15) meq/L BUN (7-18) mg/dL Creatinine (0.60-1.30) mg/dL Estimated GFR (>89) mL/min Random Glucose (74-106) mg/dL Calcium (8.5-10.1) mg/dL Magnesium (1.5-2.5) mg/dL Total Bilirubin (0.2-1.0) mg/dL AST (15-37) U/L ALT (12-78) U/L Alkaline Phosphatase (45-117) U/L Total Creatine Kinase 85 92 (39-308) U/L Troponin I Less than 0.02 L Less than 0.02 L (0.02-0.05) ng/mL Total Protein (6.4-8.2) g/dL Albumin (3.4-5.0) g/dL Imaging Data Radiologist's impression: Chest X-Ray 04/30/18 20:47 CONCLUSION: Very minimal parental changes left base nonspecific. No pneumothorax Myocardial Perfusion Scan Nuc Med 05/01/18 00:00 CONCLUSION: 1. Negative for stress-induced ischemia. 2. Low-normal ejection fraction with mild dilatation of ventricular cavity. Discharge Plan Discharge Disposition Patient Disposition: ED Admit(ED Internal Use Only) Discharge Condition Condition: Stable Discharge Order Discharge Orders: Discharge Order (Routine); Ordered 05/01/18 Ordered By: Annika Thomason ED Use Only Admit Order (Routine); Ordered 04/30/18 Ordered By: Dinh Bradley Discharge Details Anticipated Discharge Date: 05/01/18 Diagnosis: Chest pain Physicians Team ED Provider: [place] Diamond ED Midlevel Provider: Dinh Bradley Primary Care Provider: Wilfred Nam Attending Provider: César Carroll Status ED Status: Left Department Discharge Information Discharge Date/Time: 05/01/18 00:05
[2018-04-30 21:08] LABS: Baso # (Auto) 0.1 th/mm3 (0.0-0.2); Eos # (Auto) 0.1 th/mm3 (0.0-0.4); Eos % (Auto) 1.4 % (0.0-4.0); Hematocrit 44.1 % (39.0-51.0); Hemoglobin 15.1 gm/dL (13.0-17.0); Lymph # (Auto) 2.6 th/mm3 (1.0-4.8); Lymph % (Auto) 29.3 % (9.0-44.0); Mean Corpuscular HGB Conc 34.3 % (32.0-36.0); Mean Corpuscular Volume 96.2 fL (80.0-100.0); Mean Platelet Volume 8.3 fL (7.0-11.0); Mono # (Auto) 0.6 th/mm3 (0.0-0.9); Mono % (Auto) 6.7 % (0.0-8.0); Neut # (Auto) 5.4 th/mm3 (1.8-7.7); Neut % (Auto) 61.6 % (16.0-70.0); Platelet Count 245 th/mm3 (150-450); Red Blood Count 4.58 mil/mm3 (4.50-5.90); White Blood Count 8.7 th/mm3 (4.0-11.0)
--- NOTE | 2018-04-30 21:09 | XR ---
EXAM DATE: 04/30/2018 9:07 PM EST AGE/SEX: 42 years / Male INDICATIONS: Chest pain for 5 hours. CLINICAL DATA: This is the patient's initial encounter. Patient reports that signs and symptoms have been present for 1 day and indicates a pain score of 10/10. MEDICAL/SURGICAL HISTORY: . Myocardial infarction. Hypertension Asthma. Former 4 pack per day s moker. . Stents. COMPARISON: [facility] [place], CHEST PA & LAT, 06/13/2017. . FINDINGS: Minimal parenchymal changes left base. Right lung clear. No pneumothorax. Cardiac size is appropriate . CONCLUSION: Very minimal parental changes left base nonspecific. No pneumothorax Electronically signed by: Curtis Castro MD Board Certified Radiologist 04/30/2018 9:08 PM EST
[2018-04-30 21:22] LABS: Activated Partial Thrombo Time 29.2 sec (23.4-31.7); INR 1.1 Ratio; Prothrombin Time 10.9 sec (9.8-11.6)
[2018-04-30 21:29] LABS: Albumin 4.3 g/dL (3.4-5.0); Anion Gap 11 meq/L (5-15); Aspartate Aminotransferase 17 U/L (15-37); Blood Urea Nitrogen 8 mg/dL (7-18); Calcium 8.9 mg/dL (8.5-10.1); Carbon Dioxide 24.2 meq/L (21.0-32.0); Chloride 104 meq/L (98-107); Glomerular Filtration Rate 82 mL/min (>89); Glucose,Random 104 mg/dL (74-106); Magnesium 2.1 mg/dL (1.5-2.5); Potassium 3.9 meq/L (3.5-5.1); Sodium 139 meq/L (136-145)
[2018-04-30 21:30] LABS: Alanine Aminotransferase 21 U/L (12-78)
[2018-04-30 21:33] LABS: Alkaline Phosphatase 126 U/L (45-117); Total Protein 7.9 g/dL (6.4-8.2)
[2018-04-30 21:38] LABS: Creatine Kinase 100 U/L (39-308)
[2018-05-01 00:26] LABS: Creatine Kinase 85 U/L (39-308)
[2018-05-01 03:51] LABS: Creatine Kinase 92 U/L (39-308)
--- NOTE | 2018-05-01 07:16 | ECG ---
Date Performed: 04/30/2018 Time Performed: 20:44:03 PTAGE: 42 years EKG: Sinus rhythm WITH SINUS ARRHYTHMIA NORMAL ECG NO PREVIOUS TRACING DOCTOR: Casper Sheffield Interpretating Date/Time 05/01/2018 07:15:17
[2018-05-01 07:17] VITALS: RESP 18
--- NOTE | 2018-05-01 07:33 | P.HPCA ---
History of Present Illness Primary Care Physician: Wilfred Nam MD Chief Complaint: Chest pain History of Present Illness: 42 year old male with history of CAD, cardiac stents, hypertension, and hyperlipidemia presents to ER for further evaluation of nonexertional chest pain. Onset yesterday afternoon. Location left anterior chest. Characterized as pressure. Radiation to left side neck. Associated symptoms included dyspnea and diaphoresis. No nausea or vomiting. Daughter in severity. Duration 2 hours, followed by lesser intensity for a "few more hours." Endorses similar pain prior to previous heart attack. No current chest pain. Follows with Dr. Rubin [facility] pres[facility]. Actually seen Dr. Rubin earlier in day, prior to developing chest pain. Reports walking home 4 miles and didn't develop chest pain until 1 hour after returning home. Quit smoking 2 weeks ago. No recent illness, fever, cough, or injury. Past cardiac testing No recent cardiac testing. Does not follow with a wrapper [facility] preserver. 07/31/16 Cardiac catheterization (Dr. Dasilva) STEMI alert. Conclusions: 1. ST elevation [place] of the obtuse marginal branch distribution. 2. Successful percutaneous intervention with bare metal stents to the first obtuse marginal branch. 05/03/16 Cardiac catheterization (Dr. Doyle) Conclusion: 1. Unstable angina, [place] [employer] Class IV angina. Culprit complex 95% stenosis in the medial branch of the OM and 99% stenosis in the lateral branch of the OM as detailed above. 2. Otherwise, mild three-vessel coronary artery disease. Right dominant system as detailed above. 3. Normal LV systolic function, ejection fraction 60%. 4. Successful PCI bare-metal stent of the medical branch of the OM1 from 95% t0 0% with MOODY-III flow. 5. Successful PTCA the lateral branch of the first obtuse marginal vessel from 99% with MOODY III flow to 40% with MOODY III flow. 6. Recommend Aggrastat drip per protocol, Plavix 600 mg loading and 75 mg a day for at least 12-15 months, aspirin 81 mg daily medical management for coronary artery disease and strongly recommend cessation. Social history Known CAD, hypertension, and hyperlipidemia. No known diabetes. Recently quit smoking 0.5 pack/daily 2 weeks ago. Endorses past smoking 3 packs/ daily. - Diagnosis (1) Chest pain (2) History of coronary artery disease (3) Tobacco abuse (4) Hypertension (5) Hyperlipidemia (6) History of depression Review of Systems All other systems reviewed negative except as stated in HPI PMFSH - History History Provided By: Patient - Medical History Medical History: Medical History (Last Updated 05/01/18 @ 09:29 by DIANE Marcial) Afib Anxiety CAD (coronary artery disease) Depression HTN (hypertension) Head deformity Hyperlipidemia Major depression Suicide attempt - Surgical History Surgical History: Surgical History (Last Updated 05/01/18 @ 08:55 by DIANE Marcial) History of heart artery stent - Social History I have reviewed the patient's Social History: Yes - Tobacco History Second Hand Smoke Exposure: No Tobacco Use In Past 30 Days: Yes Smoking Status: Former smoker (quit smoking 0.5 pack2 weeks ago from 1/2 pack/ daily) Packs Per Day: 0.5 Number of Pack Years (if former smoker): 65 - Alcohol History How Often Do You Have a Drink Containing Alcohol: Never - Substance Use History Substance History: No History of Abuse - Travel History History of Recent Travel: No Recent Travel in the [place] Within the Last 8 Weeks: No Recent Travel Out of the Country Within the Last 8 Weeks: No - Immunization History Tetanus Immunization: >5 Years Medications and Allergies Active Medications: Active Medications Acetaminophen (Tylenol) 500 mg PO Q4H PRN PRN Reason: HEADACHE Ondansetron HCl (Zofran Inj) 4 mg IV.PUSH Q6H PRN PRN Reason: NAUSEA Sodium Chloride (Ns Flush) 2 ml IV.FLUSH UNSCH PRN PRN Reason: FLUSH AFTER USING IV ACCESS Sodium Chloride (Ns Flush) 2 ml IV.FLUSH BID LOW Sodium Chloride (Ns Flush) 2 ml IV.FLUSH PRN PRN PRN Reason: FLUSH AFTER USING IV ACCESS Allergies Allergy/AdvReac Type Severity Reaction Status Date / Time No Known Allergies Allergy Verified 04/30/18 20:50 Home Medications Medication Instructions Recorded Confirmed Type amlodipine 04/30/18 History atorvastatin 04/30/18 History clopidogrel 04/30/18 History lurasidone [Latuda] 60 mg PO DAILY 04/30/18 04/30/18 History Exam Vital signs: Vital Signs 04/30/18 20:43 04/30/18 20:50 04/30/18 21:42 Temperature 98.3 F Pulse Rate 72 Respiratory Rate 18 Blood Pressure 161/92 H Pulse Oximetry 100 98 98 04/30/18 21:45 04/30/18 21:47 04/30/18 22:38 Temperature Pulse Rate 65 Respiratory Rate 18 18 16 Blood Pressure 124/84 Pulse Oximetry 98 05/01/18 00:00 05/01/18 04:26 05/01/18 07:15 Temperature 97.5 F L 97.9 F 97.6 F Pulse Rate 53 L 69 64 Respiratory Rate 17 16 18 Blood Pressure 127/79 122/72 135/73 Pulse Oximetry 100 97 96 Intake & Output 04/30/18 05/01/18 05/01/18 18:59 06:59 18:59 Weight 79.379 kg Other: Date of Last Bowel Movement 04/30/18 Weight On Admission 79.379 kg Narrative: GENERAL: Alert WN, WD, NAD, male who appears older than stated age HEAD: NC, AT NECK: Supple, no masses, trachea midline CV: RRR, without murmur, rub, gallop, no JVD, S1-S2. RESP: Diminished lungs throughout bilateral, no crackles, wheeze, rhonchi, symmetrical chest rise, nonlabored, able to speak in full sentences ABD: Soft, NT, ND, no masses, positive bowel tones EXT: Pulses +2x4, no dependent edema MS: Normal tone x4 extremities, nontender, no obvious deformities, full range of motion NEURO: CN II through CN XII grossly intact, motor strength 5/5 PSYCH: A+O x3, flat affect, appropriate speech, mood, insight and judgment SKIN: Normal turgor, normal texture, no lesions, no rashes - Routine Psychiatric Exam Present: normal thought process, good insight, good judgment. Absent: suicidal ideation, depressed, anxious, agitated Results 04/30/18 21:00 04/30/18 21:00 Cardiac Enzymes 04/30/18 04/30/18 05/01/18 Range/Units 21:00 23:30 02:40 AST 17 (15-37) U/L Troponin I Less than 0.02 L Less than 0.02 L Less than 0.02 L (0.02-0.05) ng/mL Coagulation 04/30/18 Range/Units 21:00 PT 10.9 (9.8-11.6) sec APTT 29.2 (23.4-31.7) sec CBC 04/30/18 Range/Units 21:00 WBC 8.7 (4.0-11.0) th/mm3 RBC 4.58 (4.50-5.90) mil/mm3 Hgb 15.1 (13.0-17.0) gm/dL Hct 44.1 (39.0-51.0) % Plt Count 245 (150-450) th/mm3 Neut # (Auto) 5.4 (1.8-7.7) th/mm3 Lymph # (Auto) 2.6 (1.0-4.8) th/mm3 [place] # (Auto) 0.6 (0.0-0.9) th/mm3 Eos # (Auto) 0.1 (0.0-0.4) th/mm3 Baso # (Auto) 0.1 (0.0-0.2) th/mm3 Comprehensive Metabolic Panel 04/30/18 Range/Units 21:00 Sodium 139 (136-145) meq/L Potassium 3.9 (3.5-5.1) meq/L Chloride 104 (98-107) meq/L Carbon Dioxide 24.2 (21.0-32.0) meq/L BUN 8 (7-18) mg/dL Creatinine 1.00 (0.60-1.30) mg/dL Calcium 8.9 (8.5-10.1) mg/dL AST 17 (15-37) U/L ALT 21 (12-78) U/L Alkaline Phosphatase 126 H (45-117) U/L Total Protein 7.9 (6.4-8.2) g/dL Albumin 4.3 (3.4-5.0) g/dL Intake and Output 04/30/18 05/01/18 05/01/18 22:59 06:59 14:59 Other: Date of Last Bowel Movement 04/30/18 Weight 79.379 kg 79.379 kg Weight On Admission 79.379 kg - Imaging and Cardiology Imaging: Impressions Chest X-Ray 04/30/18 20:47 CONCLUSION: Very minimal parental changes left base nonspecific. No pneumothorax EKG interpretations - EKG EKG results cardiology: sinus rhythm, normal axis, normal QRS, normal ST/T Caprini VTE Risk Assessment Caprini VTE Risk Assessment: No/Low Risk (score <= 1) Caprini Risk Assessment Model: Point Value = 1 Point Value = 2 Point Value = 3 Point Value = 5 Age 41-60 Minor surgery BMI > 25 kg/m2 Swollen legs Varicose veins or History of unexplained or recurrent spontaneous Oral contraceptives or hormone replacement Sepsis (< 1 month) Serious lung disease, including pneumonia (< 1 month) Abnormal pulmonary function Acute myocardial infarction Congestive heart failure (< 1 month) History of inflammatory bowel disease Medical patient at bed rest Age 61-74 Arthroscopic surgery Major open surgery (> 45 min) Laparoscopic surgery (> 45 min) Malignancy Confined to bed (> 72 hours) Immobilizing plaster cast Central venous access Age >= 75 History of VTE Family history of VTE Factor V Leiden Prothrombin [id number] Lupus anticoagulant Anticardiolipin antibodies Elevated serum homocysteine Heparin-induced thrombocytopenia Other congenital or acquired thrombophilia Stroke (< 1 month) Elective arthroplasty Hip, pelvis, or leg fracture Acute spinal cord injury (< 1 month) Prophylaxis Regimen: Total Risk Factor Score Risk Level Prophylaxis Regimen 0-1 Low Early ambulation 2 Moderate Order ONE of the following: *Sequential Compression Device (SCD) *Heparin 5000 units SQ BID 3-4 Higher Order ONE of the following medications: *Heparin 5000 units SQ TID *Enoxaparin/Lovenox 40 mg SQ daily (WT < 150 kg, CrCl > 30 mL/min) *Enoxaparin/Lovenox 30 mg SQ daily (WT < 150 kg, CrCl > 10-29 mL/min) *Enoxaparin/Lovenox 30 mg SQ BID (WT < 150 kg, CrCl > 30 mL/min) AND/OR *Sequential Compression Device (SCD) 5 or more Highest Order ONE of the following medications: *Heparin 5000 units SQ TID (Preferred with Epidurals) *Enoxaparin/Lovenox 40 mg SQ daily (WT < 150 kg, CrCl > 30 mL/min) *Enoxaparin/Lovenox 30 mg SQ daily (WT < 150 kg, CrCl > 10-29 mL/min) *Enoxaparin/Lovenox 30 mg SQ BID (WT < 150 kg, CrCl > 30 mL/min) AND *Sequential Compression Device (SCD) Assessment and Plan - Assessment (1) Chest pain Code(s): R07.9 - Chest pain, unspecified Status: Acute Plan: Admitted to chest pain center. Monitor on telemetry overnight. ACS ruled out 3 sets of EKGs and cardiac enzymes. Seen and evaluated by Dr. Olegario River. Proceed with nuclear treadmill testing this morning. (2) History of coronary artery disease Code(s): Z86.79 - Personal history of other diseases of the circulatory system Status: Chronic Plan: Strongly encouraged smoking cessation. Continue cardiac medication once updated in EMR. (3) Tobacco abuse Code(s): Z72.0 - Tobacco use Status: Chronic Plan: Encouraged and stressed the importance of continuing with his current tobacco cessation, quitting 2 weeks ago. Made aware of tobacco Free [place] program available. (4) Hypertension Code(s): I10 - Essential (primary) hypertension Status: Chronic Plan: Continue home antihypertensive medications once updated in EMR. (5) Hyperlipidemia Code(s): E78.5 - Hyperlipidemia, unspecified Status: Chronic Plan: Continue statin therapy. (6) History of depression Code(s): Z86.59 - Personal history of other mental and behavioral disorders Status: Chronic Plan: Continue home medications. H&P: Quality - VTE Deep Vein Thrombosis/Pulmonary Embolism Present on Admission: No (1) Chest pain Qualifiers: Chest pain type: unspecified Qualified Code(s): R07.9 - Chest pain, unspecified (4) Hypertension Qualifiers: Hypertension type: unspecified Qualified Code(s): I10 - Essential (primary) hypertension (5) Hyperlipidemia Qualifiers: Hyperlipidemia type: unspecified Qualified Code(s): E78.5 - Hyperlipidemia, unspecified
[2018-05-01] MEDS ORDERED: Acetaminophen 500 MG Tablet PO PRN (08:15)
[2018-05-01] MEDS ORDERED: Regadenoson Inj 0.4 MG/5 ML Syringe IV.PUSH ONE (09:21)
--- NOTE | 2018-05-01 10:35 | NM ---
EXAM DATE: 05/01/2018 10:28 AM EST AGE/SEX: 42 years / Male INDICATIONS:Angina. . Chest pain. CLINICAL DATA: This is the patient's initial encounter. Patient reports that signs and symptoms have been present for 1 day and indicates a pain score of 4/10. MEDICAL/SURGICAL HISTORY: Hypertension. Hypercholesterolemia. A-fib, CAD. . Coronary artery s tents x5. COMPARISON: [facility], MYOCARDIAL PERF PHARM SPECT, 05/02/2016. . DOSE: 8.7 mCi Tc 99m Myoview at rest 26.9 mCi [id number] at stress 0.4 mg Lexiscan STRESS SYMPTOMS: Short of breath. EJECTION FRACTION: 52 % TECHNIQUE: The patient underwent pharmacologic stress with infusion of prescribed dose. Continuous ECG tracing was monitored during stress. Gated SPECT imaging was performed after stress and conventi onal SPECT imaging was performed at rest. The examination was performed on a SPECT/CT scanner, both attenuation and non-corrected datasets were reviewed. FINDINGS: Distribution: The maximum perfused segment at stress is in the anterior lateral wall Perfusion Study: The pattern of perfusion at stress is within normal limits. Gated Study: There are intact wall motion and wall thickening without hypokinetic or dyskinetic segm ents. The ejection fraction is calculated at 52%. RISK CATEGORY: Low (<1% Annual Motality Rate) CONCLUSION: 1. Negative for stress-induced ischemia. 2. Low-normal ejection fraction with mild dilatation of ventricular cavity. Electronically signed by: Curtis Castro MD Board Certified Radiologist 05/01/2018 10:33 AM EST
[2018-05-01 11:01] VITALS: BP 110/77; PULSE 63; TEMP 98; O2SAT 98
--- NOTE | 2018-05-01 15:11 | ECG ---
Date Performed: 05/01/2018 Time Performed: 02:24:45 PTAGE: 42 years EKG: SINUS BRADYCARDIA BORDERLINE ECG PREVIOUS TRACING : 04/30/2018 23.43 Since previous tracing, no significant change noted DOCTOR: Olegario River Interpretating Date/Time 05/01/2018 15:09:47
--- NOTE | 2018-05-01 15:11 | ECG ---
Date Performed: 04/30/2018 Time Performed: 23:43:43 PTAGE: 42 years EKG: SINUS BRADYCARDIA BORDERLINE ECG PREVIOUS TRACING : 04/30/2018 20.44 Since previous tracing, no significant change noted DOCTOR: Olegario River Interpretating Date/Time 05/01/2018 15:09:58
--- NOTE | 2018-05-01 15:16 | TR ---
Date Performed: 05/01/2018 Time Performed: 09:25:09 DOCTOR: Olegario River DRUG LIST: CLINICAL HISTORY: CHEST PAIN REASON FOR TEST: REASON FOR ENDING: OBSERVATION: CONCLUSION: COMMENTS: Lexiscan stress test was performed under standard four minute protocol. Radionuclide was injected one minute prior to ending the test. No electrocardiographic abormalities were present t o suggest ischemia. Nuclear imaging and interpretation are pending.
== END 2018-05-01 11:15 | disposition home or self-care (01) ==
LOC: NEPC 20:33 → NEDA 20:33 → NEPFCDU 23:55
PROVIDERS: ADMIT Internal Medicine Interventional Cardiology; ATTEND Internal Medicine Interventional Cardiology